=== PATIENT | male | born 1960 | race Caucasian/White ===

== ENCOUNTER 2020-05-09 10:13 | Outpatient (NON) | payer OTHER, SELFPAY ==
[2020-05-09 17:10] LABS: SARS-CoV-2 RNA PCR Positive
== END 2020-05-09 10:14 ==
LOC: ANHCOVIDDT 10:15
PROVIDERS: PCP Physician Assistant; Visit Provider Physician Assistant
DX: U07.1 COVID-19 (principal)
CPT/HCPCS: 87635; C9803; U0003

== ENCOUNTER 2020-07-02 07:47 | Outpatient (CLI) | payer BC, SELFPAY ==
[2020-07-02 08:26] LABS: Hemoglobin A1C 5.2 % (<5.7)
[2020-07-02 08:28] LABS: Basophils Absolute Auto 0.1 K/mm3 (0.0-0.1); Basophils Percent Auto 1.3 % (0.2-1.2); Eosinophils Absolute Auto 0.2 K/mm3 (0-0.3); Eosinophils Percent Auto 3.9 % (0-4.4); Hematocrit 43.2 % (42.0-52.0); Hemoglobin 14.4 g/dL (14.0-18.0); Immature Granulocyte Absolute 0.02 K/mm3 (0.00-0.031); Immature Granulocyte Percent A 0.3 % (0-0.5); Lymphocytes Absolute Auto 1.61 K/mm3 (0.9-3.2); Lymphocytes Percent Auto 27.2 % (18.3-44.2); Mean Corpuscular HGB Conc 33.3 g/dl (32-36); Mean Corpuscular Hemoglobin 29.5 pg (26-34); Mean Corpuscular Volume 88.5 fl (80-100); Mean Platelet Volume 10.6 fl (7.4-10.4); Monocytes Absolute Auto 0.4 K/mm3 (0.1-0.6); Monocytes Percent Auto 7.1 % (2.6-8.5); Neutrophils Absolute Auto 3.6 K/mm3 (1.3-6.7); Neutrophils Percent Auto 60.2 % (45.5-73.1); Platelet Count Result 197 k/mm3 (150-375); Red Blood Count 4.88 M/mm3 (4.6-6.20); Red Cell Distribution Width 12.8 % (11.5-14.5); White Blood Count 5.9 K/mm3 (4.5-10.0)
[2020-07-02 08:30] LABS: Alanine Aminotransferase 24 U/L (4-50); Albumin Level 4.1 g/dL (3.5-5.1); Alkaline Phosphatase 59 U/L (38-126); Anion Gap 5 mmol/L (8-16); Aspartate Amino Transferase 24 U/L (17-59); Bilirubin,Total 0.5 mg/dL (0.2-1.3); Blood Urea Nitrogen 17 mg/dL (9-20); Carbon Dioxide 29 mmol/L (22-30); Chloride 106 mmol/L (98-107); Cholesterol 193 mg/dL (0-200); Estimated Glomerular Filt Rate > 60; Glucose 116 mg/dL (75-110); HDL Direct 29 mg/dL; Potassium 4.2 mmol/L (3.4-5.0); Sodium 140 mmol/L (137-145); Triglycerides 188 mg/dL (<150)
[2020-07-02 08:41] LABS: LDL Cholesterol Direct 121 mg/dL
[2020-07-04 10:36] LABS: Prostate Specific Antigen 0.4 ng/mL (< OR = 4.0)
== END 2020-07-02 07:48 | disposition home or self-care (01) ==
PROVIDERS: PCP Internal Medicine; Visit Provider Clinical Nurse Specialist
DX: E11.9 Type 2 diabetes mellitus without complications (principal); Z12.5 Encounter for screening for malignant neoplasm of prostate
CPT/HCPCS: 36415; 80053; 80061; 83036; 84153; 85025; G0103

== ENCOUNTER 2020-10-04 10:16 | Outpatient (CLI) | payer BC, SELFPAY ==
[2020-10-04 13:30] LABS: Hemoglobin A1C 5.8 % (<5.7)
== END 2020-10-04 10:17 | disposition home or self-care (01) ==
LOC: ANHLAB 10:31
PROVIDERS: PCP Internal Medicine; Visit Provider Clinical Nurse Specialist
DX: E11.9 Type 2 diabetes mellitus without complications (principal)
CPT/HCPCS: 36415; 83036

== ENCOUNTER 2020-12-27 10:10 | Outpatient (CLI) | payer BC, SELFPAY ==
[2020-12-27 15:52] LABS: Hemoglobin A1C 5.9 % (<5.7)
== END 2020-12-27 10:11 | disposition home or self-care (01) ==
PROVIDERS: PCP Internal Medicine; Visit Provider Clinical Nurse Specialist
DX: E11.9 Type 2 diabetes mellitus without complications (principal)
CPT/HCPCS: 36415; 83036

== ENCOUNTER → 2021-01-12 07:14 | Outpatient (CLI) | payer BC, SELFPAY ==
--- NOTE | ~2021-01-12 | MR_ITS ---
EXAMINATION: MR shoulder RT wo con DATE: 01/12/2021 08:17 INDICATION: Right shoulder pain TECHNIQUE: Magnetic resonance imaging (MRI) of the right shoulder was performed without intravenous c ontrast. Sequences included axial PD-weighted FS FSE, coronal oblique PD-weighted FS FSE, coronal obl ique T2-weighted FS FSE, sagittal PD-weighted FS FSE, and sagittal T1-weighted SE. COMPARISON: None. FINDINGS: Coracoacromial arch: Postoperative change of prior acromioplasty with multiple foci of postoperative susceptibility artifa ct along the margins of the thinned acromion. Widening of the acromioclavicular articulation with shweta nge of prior distal clavicle resection. Rotator cuff: Moderate supraspinatus and mild infraspinatus tendinopathy. Very small thin linear fluid signal inten sity intrasubstance longitudinal split tear extending along the otherwise intact appearing fibers of the distal 1 cm of the conjoined portion of the supraspinatus and infraspinatus tendons with no discr ete discontinuous tear margin or thinning of the tendon. The teres minor tendon is normal. Mild subsc apularis tendinopathy without discrete tear. Normal rotator cuff muscle bulk and signal. Biceps tendon, glenoid labrum and glenohumeral cartilage: Long head of the biceps tendon is normal. Glenoid labrum is normal. Glenohumeral cartilage is normal. Fluid: Small amount of fluid in the long head biceps tendon sheath which is disproportionate to the physiolo gic amount fluid in the glenohumeral joint space consistent with mild bicipital tenosynovitis. No loo se osteochondral bodies. Small amount of fluid in the subacromial/subdeltoid bursa consistent with mi ld bursitis. Bones: Normal marrow signal with no edema, fracture or abnormal marrow replacing process. IMPRESSION: 1. Moderate supraspinatus and mild infraspinatus and subscapularis tendinopathy with very small intra substance delaminating split tear at the distal conjoined portion of the supraspinatus and infraspina tus tendons. 2. Postoperative change of prior acromioplasty and distal clavicle resection. 3. Mild subacromial/subdeltoid bursitis. 4. Mild bicipital tenosynovitis. Reviewed, dictated and finalized at location A. IMPRESSION: 1. Moderate supraspinatus and mild infraspinatus and subscapularis tendinopathy with very small intrasubstance delaminating split tear at the distal conjoined portion of the supraspinatus and infraspinatus tendons. 2. Postoperative change of prior acromioplasty and distal clavicle resection. 3. Mild subacromial/subdeltoid bursitis. 4. Mild bicipital tenosynovitis.
== END ==
PROVIDERS: PCP Internal Medicine; Visit Provider Clinical Nurse Specialist
DX: M25.511 Pain in right shoulder (principal); S46.811A Strain of other muscles, fascia and tendons at shoulder and upper arm level, right arm, initial encounter; M75.51 Bursitis of right shoulder; M75.21 Bicipital tendinitis, right shoulder
CPT/HCPCS: 73221

== ENCOUNTER 2021-03-02 09:58 | Outpatient (CLI) | payer BC, SELFPAY ==
[2021-03-02 10:39] LABS: Anion Gap 8 mmol/L (8-16); Blood Urea Nitrogen 16 mg/dL (9-20); Calcium 8.9 mg/dL (8.4-10.2); Carbon Dioxide 27 mmol/L (22-30); Chloride 105 mmol/L (98-107); Estimated Glomerular Filt Rate > 60; Glucose 178 mg/dL (65-110); Sodium 140 mmol/L (137-145)
== END 2021-03-02 09:59 | disposition home or self-care (01) ==
LOC: ANHLAB 10:01
PROVIDERS: PCP Internal Medicine; Visit Provider Clinical Nurse Specialist
DX: I10 Essential (primary) hypertension (principal)
CPT/HCPCS: 36415; 80048

== ENCOUNTER 2021-07-02 17:15 | Observation (INO) | payer BC, SELFPAY ==
[2021-07-02] VITALS (7 sets, daily range): BP systolic 145–185; BP diastolic 76–93; PULSE 78–90; RESP 14–20; TEMP 35.9–36.4; O2SAT 96–100; BMI 37.1
--- NOTE | ~2021-07-02 | XR_ITS ---
EXAMINATION: XR chest 2V DATE: 07/02/2021 18:08 INDICATION: Left chest and abdominal pain. TECHNIQUE: PA and lateral views of the chest were obtained. COMPARISON: Chest radiograph dated 04/03/2018 FINDINGS: Small calcified nodule right lower lung zone and calcified mediastinal lymph nodes consistent with ol d granulomatous disease. Minimal linear discoid atelectasis/scarring at the lateral left lower lung z one. No other airspace opacities, pulmonary edema, pleural effusion or pneumothorax. The cardiomedias tinal silhouette is normal. There are bridging osteophytes at multiple levels in the spine, consisten t with diffuse idiopathic skeletal hyperostosis (DISH). IMPRESSION: 1. No acute cardiopulmonary disease. Reviewed, dictated and finalized at location A. RPLANT OPERATOR
--- NOTE | 2021-07-02 17:17 | ECG_ITS ---
Measurements Intervals [place] Rate: 79 P: 1 WA: 123 QRS: 84 QRSD: 109 T: 88 QT: 363 QTc: 418 Interpretive Statements SINUS RHYTHM SUBTLE ST ELEVATION IN INFERIOR LEADS- CONSIDER ACUTE INFARCT WITH HIGH LATERAL RECIPROCAL CHANGES BASELINE ARTIFACT- I, III, AVL ABNORMAL ECG Electronically Signed On 07-04-2021 10:13:01 ASSEMBLER TESTER by Radu Alvarez D.O.
[2021-07-02 17:37] LABS: Basophils Absolute Auto 0.1 K/mm3 (0.0-0.1); Basophils Percent Auto 1.3 % (0.2-1.2); Eosinophils Absolute Auto 0.2 K/mm3 (0-0.3); Eosinophils Percent Auto 3.1 % (0-4.4); Hematocrit 42.1 % (42.0-52.0); Hemoglobin 14.7 g/dL (14.0-18.0); Immature Granulocyte Absolute 0.03 K/mm3 (0.00-0.031); Immature Granulocyte Percent A 0.4 % (0-0.5); Lymphocytes Absolute Auto 2.32 K/mm3 (0.9-3.2); Lymphocytes Percent Auto 29.7 % (18.3-44.2); Mean Corpuscular HGB Conc 34.9 g/dl (32-36); Mean Corpuscular Hemoglobin 30.6 pg (26-34); Mean Corpuscular Volume 87.7 fl (80-100); Mean Platelet Volume 10.3 fl (7.4-10.4); Monocytes Absolute Auto 0.5 K/mm3 (0.1-0.6); Monocytes Percent Auto 6.9 % (2.6-8.5); Neutrophils Absolute Auto 4.6 K/mm3 (1.3-6.7); Neutrophils Percent Auto 58.6 % (45.5-73.1); Platelet Count Result 234 k/mm3 (150-375); Red Cell Distribution Width 12.3 % (11.5-14.5); White Blood Count 7.8 K/mm3 (4.5-10.0)
[2021-07-02 17:45] LABS: Partial Thromboplastin Time 28.2 SECONDS (22.3-36.8); Prothrombin Time 12.8 Seconds (11.1-14.7)
[2021-07-02 17:51] LABS: Alanine Aminotransferase 28 U/L (4-50); Albumin Level 4.6 g/dL (3.5-5.1); Alkaline Phosphatase 99 U/L (38-126); Anion Gap 8 mmol/L (8-16); Aspartate Amino Transferase 26 U/L (17-59); Bilirubin,Total 0.5 mg/dL (0.2-1.3); Blood Urea Nitrogen 24 mg/dL (9-20); Calcium 9.3 mg/dL (8.4-10.2); Carbon Dioxide 29 mmol/L (22-30); Chloride 102 mmol/L (98-107); Estimated CRCL calculation 83 ml/min; Estimated Glomerular Filt Rate > 60; Glucose 140 mg/dL (65-110); Lipase 102 U/L (23-300); Potassium 4.4 mmol/L (3.4-5.0); Sodium 139 mmol/L (137-145)
[2021-07-02 18:11] LABS: Troponin I 0.071 ng/mL (0.000-0.034)
[2021-07-02] MEDS: ASPIRIN 81 MG CHEWABLE TABLET 324 MG PO (18:38)
--- NOTE | 2021-07-02 18:40 | ECG_ITS ---
Measurements Intervals [place] Rate: 76 P: 47 CA: 150 QRS: 85 QRSD: 105 T: 80 QT: 363 QTc: 410 Interpretive Statements SINUS RHYTHM BORDERLINE ST-T WAVE ABNORMALITY- HIGH LATERAL LEADS BORDERLINE ECG Electronically Signed On 07-02-2021 20:08:53 SAND CUTTER OPERATOR by Radu Alvarez D.O.
[2021-07-02] MEDS: NITROGLYCERIN SL 0.4 MG TABLET SUBLINGUAL (18:55)
--- NOTE | 2021-07-02 18:55 | PC.NURSE ---
patient receives 1/3 SL nitro for 7/10 CP. BP 138/80
--- NOTE | 2021-07-02 19:00 | PM.IMHP ---
H&P: HPI History of Present Illness Date/Time: 07/02/21 19:00 Chief Complaint: Neck and chest pain. Narrative: This is a pleasant 61-year-old male with hypertension, hyperlipidemia, diabetes, and GERD who presented to the emergency department for evaluation of neck and chest pain which has been intermittent over the past 2 days. He describes a burning and perhaps even a slight squeezing sensation which gradually develops in the posterior upper neck and radiates down into his throat and to the left anterior chest. He sees no pattern as to when this occurs and he also denies known aggravating or alleviating factors. The discomfort is self-limiting but has lasted upwards of an hour before resolving. He denies associated symptoms such as syncope, near syncope, diaphoresis, nausea, vomiting, and shortness of breath. It is not similar to the symptoms he experiences with GERD though he did remark that the discomfort in the back of the neck and throat felt almost as though he swallowed a whole chip. Initially he attributed his symptoms to stress however his symptoms lasted longer today and he felt it would be best to come in for evaluation. Initial troponin done on arrival was 0.071 and his EKG was read as a sinus rhythm with borderline ST T-wave abnormalities in the high lateral leads and he is being admitted in this setting. He has not had any discomfort since receiving 325 mg aspirin and sublingual nitroglycerin x2. He has no history of cardiac disease and reports having a negative chemical stress test done at [facility] several years ago. Review of Systems Review of Systems: Twelve systems were reviewed. No fever, chills, or sweats. No recent cold or flu symptoms. He denies sick contacts. No abdominal distension or bloating. He denies abdominal pain and epigastric pain. No nausea or vomiting. No diarrhea or constipation. No melena or hematochezia. He denies palpitations and pleuritic pain. No orthopnea, PND, or lower extremity edema. He believes his diabetes is well controlled and in fact he was able to come off of his metformin several months ago. No blurry vision, polydipsia, or polyuria. Except as documented, all other systems were reviewed and are negative. [facility] Past Medical History Medical History (Updated 07/02/21 @ 21:54 by Lorraine Zacarias PA-C) Arthritis Asthma Gastroesophageal reflux disease Hyperlipidemia Hypertension Skin cancer Type 2 diabetes mellitus Surgical History Surgical History (Updated 07/02/21 @ 21:51 by Lorraine Zacarias PA-C) History of back surgery History of colonoscopy History of repair of right rotator cuff Status post surgical removal of malignant neoplasm of skin Status post tendon repair Right hand Family History Family History Father Alcohol abuse Cancer Mother Diabetes mellitus Sibling Cancer Social History Social History (Updated 07/02/21 @ 21:53 by Lorraine Zacarias PA-C) Social History: Surrogate decision maker: Leatha Roque or Melanie Pb, daughters. Code status: Full code. Smoking status: Never smoker Alcohol intake: current Drinks per week: 4 Substance use: never Additional living arrangements comments: The patient lives in [place]. 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 Meds Home Medications and Allergies Home Medications Medication Instructions Recorded Confirmed Type cyclobenzaprine 10 mg tablet 10 mg PO TID PRN #30 tablet 06/30/20 05/11/21 Rx naproxen 500 mg tablet 500 mg PO BID 06/30/20 05/11/21 History aspirin 81 mg tablet,delayed 81 mg PO DAILY 03/07/21 05/11/21 History release hydrochlorothiazide 12.5 mg tablet 12.5 mg PO DAILY #90 tablet 04/03/21 05/11/21 Rx lisinopril 40 mg tablet 40 mg PO DAILY #90 tablet 04/03/21 05/11/21 Rx montelukast 10 mg tablet 10 mg PO DAILY #90 tablet 04/03/21 05/11/21 Rx omeprazole 40 mg capsule,delayed 40 mg PO DAILY #
--- NOTE | 2021-07-02 19:02 | PC.NURSE ---
Patient receives SL nitro 2/3 for 3 CP. BP 127/81
--- NOTE | 2021-07-02 19:19 | ECG_ITS ---
Measurements Intervals [place] Rate: 81 P: 41 NM: 144 QRS: 83 QRSD: 106 T: 84 QT: 366 QTc: 426 Interpretive Statements SINUS RHYTHM BORDERLINE ST-T WAVE ABNORMALITY- HIGH LATERAL LEADS BASELINE ARTIFACT- I, AVL BORDERLINE ECG Electronically Signed On 07-07-2021 14:40:12 MARKETING INTELLIGENCE MANAGER by Radu Alvarez D.O.
--- NOTE | 2021-07-02 19:19 | ED.CHESTPAIN ---
HPI - Chest Pain General Chief Complaint: Chest Pain Stated Complaint: neck, chest pain Time Seen by Provider: 07/02/21 18:32 Source: patient History of Present Illness HPI narrative: Patient presents with chest pain. He has had intermittent chest pain for the past 2 days today symptoms started around 10:00 and have persisted so he came to the ER for evaluation. Reports a squeezing sensation in the middle of his chest that radiates up to his throat and to the left side of his chest. Is unable to identify any clear aggravating or alleviating factors he denies nausea vomiting diaphoresis or shortness of breath. Does report a history of hypertension elevated cholesterol he denies smoking history or significant family history. Related Data Home Medications Medication Instructions Recorded Confirmed naproxen 500 mg tablet 500 mg PO BID 06/30/20 05/11/21 aspirin 81 mg tablet,delayed 81 mg PO DAILY 03/07/21 05/11/21 release Allergies Allergy/AdvReac Type Severity Reaction Status Date / Time No Known Allergies Allergy Verified 07/02/21 18:58 Review of Systems Review of Systems: CONSTITUTIONAL: Denies fever, chills, or sweats. EYES: Denies visual changes, redness, or discharge. ENT: Denies rhinorrhea, congestion, sore throat, or otalgia. CARDIOVASCULAR: Denies palpitations, or edema. RESPIRATORY: Denies cough or dyspnea. GASTROINTESTINAL: Denies abdominal pain, nausea, vomiting, or diarrhea. GENITOURINARY: Denies dysuria or hematuria. SKIN: Denies rash or itching. MUSCULOSKELETAL: Denies back pain, joint pain, or myalgia. NEUROLOGIC: Denies headache, numbness, dizziness, or weakness. PSYCHIATRIC: Denies anxiety or depression. 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 HEAD: Normocephalic, atraumatic. EYES: PERRLA and EOMI. ENT: Nares clear, no rhinorrhea or epistaxis. Mucous membranes moist. NECK: Supple. No masses. No JVD CHEST: Clear to auscultation. No respiratory distress. No wheezes rales or rhonchi HEART: Regular rate and rhythm. No murmur heard. Normal peripheral pulses. ABDOMEN: Soft, nontender, nondistended, normal active bowel sounds. EXTREMITIES: Normal range of motion. No edema. SKIN: Warm, dry, no rash. NEURO: No focal deficits. Alert and oriented x3. PSYCH: Normal mood and affect. Course Reevaluation(s) Reevaluation #1: Patient feels much improved after 2 doses of nitro Date: 07/02/21 Time: 19:21 Vital Signs Vital signs: Vital Signs Temperature 36.4 C L 07/02/21 17:29 Pulse Rate 85 07/02/21 17:29 Respiratory Rate 20 07/02/21 17:29 Blood Pressure 185/93 H 07/02/21 17:29 Pulse Oximetry 100 07/02/21 17:29 Temperature 36.4 C L 07/02/21 17:29 Pulse Rate 83 07/02/21 18:59 Respiratory Rate 20 07/02/21 18:59 Blood Pressure 149/83 H 07/02/21 18:59 Pulse Oximetry 97 07/02/21 18:59 MDM - Chest Pain MDM Narrative Medical decision making narrative: Patient presents with persistent chest zuleima
[2021-07-02] MEDS: ENOXAPARIN 100 MG/ML SYRINGE SUB-Q (20:11)
[2021-07-02 20:32] LABS: SARS-CoV-2 RNA PCR Negative
[2021-07-02 21:10] LABS: Troponin I 0.794 ng/mL (0.000-0.034)
[2021-07-02] MEDS: METOPROLOL TARTRATE 25 MG TABLET PO (23:07)
[2021-07-03] VITALS (21 sets, daily range): BP systolic 113–138; BP diastolic 58–95; PULSE 53–90; RESP 16–22; TEMP 34.8–36.8; O2SAT 96–99
[2021-07-03] MEDS: NITROGLYCERIN OINTMENT 1 INCH DOSE TRANSDERM ×2 (00:22→06:44)
--- NOTE | 2021-07-03 05:08 | PC.NURSE ---
This patient, Isma Gonsalves, was admitted to IMU Room 206-01. Patient/family oriented to hospital policies and general routines including ID bracelet, bed and alarms, visiting hours, pain management, procedures, bathroom and other care routines, personal items, smoking policy, room service/diet, and visiting hours. Information on how to activate the Rapid Response Team has been discussed. Patient/Family are encouraged to report perceived risks to care and to ask questions if they do not understand what they are told or what they should do.
[2021-07-03 05:15] LABS: Anion Gap 7 mmol/L (8-16); Blood Urea Nitrogen 22 mg/dL (9-20); Calcium 8.8 mg/dL (8.4-10.2); Carbon Dioxide 29 mmol/L (22-30); Chloride 103 mmol/L (98-107); Cholesterol 207 mg/dL (0-200); Estimated CRCL calculation 88 ml/min; Estimated Glomerular Filt Rate > 60; Glucose 125 mg/dL (65-110); HDL Direct 21 mg/dL; Potassium 3.9 mmol/L (3.4-5.0); Sodium 139 mmol/L (137-145); Triglycerides 375 mg/dL (<150)
[2021-07-03 05:18] LABS: Hemoglobin A1C 6.5 % (<5.7)
[2021-07-03 05:26] LABS: LDL Cholesterol Direct 111 mg/dL
[2021-07-03 07:56] LABS: Glucose Point of Care 145 mg/dl (65-105)
--- NOTE | 2021-07-03 09:29 | PM.IMPN ---
Progress Note: A&P Assessment and Plan (1) Chest pain: Code(s): R07.9 - Chest pain, unspecified Status: Acute Assessment and Plan: Patient presented with intermittent chills.. His risk factors for cardiovascular disease include hypertension, dyslipidemia, 2 diabetes. In the setting of elevated troponin this is concerning for possible underlying coronary artery disease. He was appropriately started on the therapeutic dose of Lovenox 1 milligram/kilogram. Currently being evaluated by Cardiology for left sided cardiac catheterization. On admission was appropriately started on aspirin, metoprolol and nitroglycerin. Awaiting additional recommendation from Cardiology after cardiac catheterization is performed. (2) Elevated troponin: Code(s): R77.8 - Other specified abnormalities of plasma proteins Status: Acute Assessment and Plan: troponin is trending up 0.8-2.6-3.2. Follow-up cardiac catheterization report. (3) Hypertension: Code(s): I10 - Essential (primary) hypertension Status: Acute Assessment and Plan: Patient presented with hypertensive urgency now resolved. Blood pressures were reviewed and they have been running the 140s over 80s though was as high as 185/93 on arrival to the ER. His antihypertensives will be continued and blood pressures will be monitored closely. Hold amlodipine today. Start patient on metoprolol succinate. (4) Hyperlipidemia: Code(s): E78.5 - Hyperlipidemia, unspecified Status: Acute Assessment and Plan: Start patient on Lipitor 80 mg p.o. daily. (5) Type 2 diabetes mellitus: Code(s): E11.9 - Type 2 diabetes mellitus without complications Status: Acute Assessment and Plan: He has been off metformin for several months due to good control. Hemoglobin A1c 6.5. Given the patient risk factors and body habitus, it was not be unreasonable to continue metformin at a low dose. Patient was counseled regarding diet and exercise. (6) Gastroesophageal reflux disease: Code(s): K21.9 - Gastro-esophageal reflux disease without esophagitis Status: Acute Assessment and Plan: Patient reports that his symptoms today are not similar to those he experiences with GERD. Continue omeprazole. Subjective Date/time seen: 07/03/21 09:10 S: Patient was seen and examined at the bedside. He denies chest pain or shortness of breath at the time of my examination. Troponin continues to rise. Currently scheduled for angiogram by Cardiology. Review of Systems Review of Systems: All systems reviewed & are unremarkable except as noted in HPI and below Constitutional: Constitutional: Reports as per HPI and Reports no additional constitutional complaints Eyes: Eyes: Reports as per HPI and Reports no additional eye complaints ENT: Reports system reviewed and no additional complaints, except as documented and Reports as per HPI Cardiovascular: Cardiovascular: Reports as per HPI, Reports no additional cardiovascular complaints, Denies chest pain, Denies leg edema and Denies palpitations Respiratory: Respiratory: Reports as per HPI and Reports no additional respiratory complaints Gastrointestinal: Gastrointestinal: Reports as per HPI and Reports no additional gastrointestinal complaints Genitourinary: Genitourinary: Reports no additional male genitourinary complaints and Reports as per HPI Musculoskeletal: Musculoskeletal: Reports no additional musculoskeletal complaints and Reports as per HPI Integumentary/Breasts: Skin/Breast: Reports system reviewed and no additional complaints, except as docu and Reports as per HPI Neurologic: Reports system reviewed and no additional complaints, except as documented and Reports as per HPI Psychiatric: Psychiatric: Reports no additional psychiatric complaints and Reports as per HPI Exam Narrative: General: Well-developed male sitting up in bed in no dist
--- NOTE | 2021-07-03 09:53 | PM.CNCAR ---
Assessment and Plan Additional Plan 61-year-old man presenting last evening with intermittent chest pain for several days troponin shows evidence of acute coronary syndrome. He is stable this morning. Will proceed with left heart catheterization later today and further recommendations regarding revascularization to be forthcoming after that procedure. Nain Barboza MD [facility] History of Present Illness History of Present Illness Consult date/time: 07/03/21 09:53 Consult reason: chest pain Reason For Visit: chest pain Narrative: This is a 61-year-old man I am seeing today at the request of the hospitalist because of chest pain and evidence of acute coronary syndrome following admission to the hospital last evening. The patient states that he is not known to have any specific cardiac diagnosis in the past. For 2 or 3 days prior to this he has been having intermittent episodes of a burning like retrosternal chest pain this seems to come and go in a nonexertional fashion. Yesterday he had some of these episodes that were a bit more intense and were radiating to the neck and into the jaw. At that point he decided to come into the emergency room for evaluation. In the emergency department his electrocardiogram looked essentially benign he was treated with aspirin, beta-blockers and received some Lovenox. He was admitted to the hospital for further evaluation. Following admission he is not having any further chest pain but his troponin level has increased significantly to 3.2. In this setting I am seeing him in consultation. A reports a history of longstanding hypertension and dyslipidemia which are being well treated with medication. He has no knowledge of diabetes or he is a lifelong nonsmoker. 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 He not experiencing any palpitations orthopnea PND edema or accumulating lower extremity edema. Review of Systems Constitutional: Constitutional: Reports no additional constitutional complaints Eyes: Eyes: Reports no additional eye complaints ENT: Reports system reviewed and no additional complaints, except as documented Cardiovascular: Cardiovascular: Reports as per HPI Respiratory: Respiratory: Reports no additional respiratory complaints Gastrointestinal: Gastrointestinal: Reports no additional gastrointestinal complaints Musculoskeletal: Musculoskeletal: Reports no additional musculoskeletal complaints Integumentary/Breasts: Skin/Breast: Reports system reviewed and no additional complaints, except as docu Neurologic: Reports system reviewed and no additional complaints, except as documented Endocrine: Endocrine: Reports no additional endocrine complaints Hematologic/Lymphatic: Hematologic/Lymphatic: Reports no additional hematologic/lymphatic complaints Allergic/Immunologic: Allergic/Immunologic: Reports no additional allergic/immunologic complaints PMFSH Past Medical History Medical History (Updated 07/02/21 @ 21:54 by Lorraine Zacarias PA-C) Arthritis Asthma Gastroesophageal reflux disease Hyperlipidemia Hypertension Skin cancer Type 2 diabetes mellitus Surgical History Surgical History (Updated 07/02/21 @ 21:51 by Lorraine Zacarias PA-C) History of back surgery History of colonoscopy History of repair of right rotator cuff Status post surgical removal of malignant neoplasm of skin Status post tendon repair Right hand Family History Family History (Updated 07/03/21 @ 04:52 by Maggie Reed, SOCO) Father Alcohol abuse Skin cancer Mother Diabetes mellitus Pancreatic cancer Sibling Cancer multiple siblings/half siblings with cancers of unknown type Sibling Malignant neoplasm of prostate Sibling Cancer Sibling Cancer Social History Social History (Updated 07/02/21 @ 21:53 by Lorraine Zacarias PA-C) Social History: Surrogate decision maker: Leatha Roque or Melaniehola Ambriz, daughters. Code status: Full code. Smoking status: Former smo
--- NOTE | 2021-07-03 10:08 | WPDMODSED ---
Moderate Sedation Note-Pt Data Patient Data Diagnosis: non ST-elevation MA Present Complaint: intermittent chest and jaw pain Procedure to be performed/Plan: left heart catheterization Allergies Allergy/AdvReac Type Severity Reaction Status Date / Time No Known Allergies Allergy Verified 07/02/21 22:40 Home Medications Medication Instructions Recorded Confirmed Type aspirin 81 mg tablet,delayed 81 mg PO DAILY 03/07/21 07/02/21 History release hydrochlorothiazide 12.5 mg tablet 12.5 mg PO DAILY #90 tablet 04/03/21 07/02/21 Rx lisinopril 40 mg tablet 40 mg PO DAILY #90 tablet 04/03/21 07/02/21 Rx montelukast 10 mg tablet 10 mg PO DAILY #90 tablet 04/03/21 07/02/21 Rx omeprazole 40 mg capsule,delayed 40 mg PO DAILY #90 cap 04/03/21 07/02/21 Rx release simvastatin 20 mg tablet 20 mg PO DAILY #90 tablet 04/03/21 07/02/21 Rx amlodipine 5 mg PO DAILY 07/02/21 07/02/21 History Current Medications: Active Medications Amlodipine Besylate (Amlodipine Besylate 5 Mg Tablet) 5 mg PO DAILY [facility] Aspirin (Aspirin 81 Mg Enteric Tablet) 81 mg PO DAILY [facility] Hydrochlorothiazide (Hydrochlorothiazide 12.5 Mg Capsule) 12.5 mg PO DAILY [facility] Acetaminophen (Ofirmev 1,000 Mg Ivpb) 1,000 mg in 100 mls @ 400 mls/hr IVPB Q6H PRN PRN Reason: Mild Pain (1-3) or Fever Stop: 07/03/21 19:28 Lisinopril (Lisinopril 20 Mg Tablet) 40 mg PO DAILY [facility] Metoprolol Succinate (Metoprolol Succinate Ext Rel 12.5 Mg Tabcr) 12.5 mg PO QAM [facility] Montelukast Sodium (Montelukast Sodium 10 Mg Tablet) 10 mg PO DAILY [facility] Nitroglycerin (Nitroglycerin Ointment 1 Inch Dose) 1 inch TRANSDERM Q6HR [facility] Last Admin: 07/03/21 06:44 Dose: 1 inch Documented by: Nitroglycerin (Nitroglycerin Sl 0.4 Mg Tablet) 0.4 mg SUBLINGUAL Q5MIN PRN PRN Reason: Chest Pain Pantoprazole Sodium (Pantoprazole 40 Mg Tablet) 40 mg PO DAILY [facility] Stop: 08/02/21 08:59 Simvastatin (Simvastatin 20 Mg Tablet) 20 mg PO DAILY [facility] Sedation/Anesthesia: No previous sedation/anesthesia problems (including family history). [facility] Past Medical History Medical History (Updated 07/02/21 @ 21:54 by Lorraine Zacarias PA-C) Arthritis Asthma Gastroesophageal reflux disease Hyperlipidemia Hypertension Skin cancer Type 2 diabetes mellitus Surgical History Surgical History (Updated 07/02/21 @ 21:51 by Lorraine Zacarias PA-C) History of back surgery History of colonoscopy History of repair of right rotator cuff Status post surgical removal of malignant neoplasm of skin Status post tendon repair Right hand Family History Family History (Updated 07/03/21 @ 04:52 by Maggie Reed RN) Father Alcohol abuse Skin cancer Mother Diabetes mellitus Pancreatic cancer Sibling Cancer multiple siblings/half siblings with cancers of unknown type Sibling Malignant neoplasm of prostate Sibling Cancer Sibling Cancer Social History Social History (Updated 07/02/21 @ 21:53 by Lorraine Zacarias PA-C) Social History: Surrogate decision maker: Leatha Roque or Melanie Ambriz, daughters. Code status: Full code. Smoking status: Former smoker Alcohol intake: current Drinks per week: 4 Substance use: never Last use: 4 beers once per week Additional living arrangements comments: The patient lives in [place]. 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 Spiritual care concerns: No Mod Sed Physical Exam Physical Exam Pre Procedural Exam: Normal: Neck, Throat, Airway, Lungs, Heart Size, Heart Rate, Heart Rhythm, Neuro Exam and Extremities and Variation: Appearance ( obese gentleman no apparent distress) Hours since solid foods: 12 Hours since liquid intake: 12 Mallampati Classification: class III Internal Medicine - PN: Obj Da Vital Signs Vital Signs: Vital Signs - 24 hr 07/02/21 17:29 07/02/21 18:57 07/02/21 18:59 Temperature 36.4 C L Pulse Rate 85 78 83 Respiratory Rate 20 20 Blood Pressure 185/93 H 149/83
[2021-07-03] MEDS: METOPROLOL SUCCINATE EXT REL 12.5 MG TABCR PO (10:51)
[2021-07-03] MEDS: MONTELUKAST SODIUM 10 MG TABLET PO (10:52)
[2021-07-03] MEDS: SIMVASTATIN 20 MG TABLET PO (10:52)
[2021-07-03] MEDS: hydroCHLOROthiazide 12.5 MG CAPSULE PO (10:52)
[2021-07-03] MEDS: lisinopriL 20 MG TABLET 40 MG PO (10:52)
[2021-07-03] MEDS: ASPIRIN 81 MG ENTERIC TABLET PO (10:52)
[2021-07-03] MEDS: PANTOPRAZOLE 40 MG TABLET PO (10:53)
--- NOTE | 2021-07-03 12:07 | WPDCARDPROC ---
Cardiac Cath Procedure Note Date of procedure:: 07/03/21 Performing physician:: Nain Barboza MD Indication:: acute coronary syndrome/ non ST-elevation ME Brief clinical history:: this is a 61-year-old gentleman with hypertension and dyslipidemia presented to the hospital with accelerating / unstable ischemic chest pain several days. He had a moderate troponin rise prompting the recommendation to perform an angiogram. Procedure Procedure performed:: Left ventriculogram coronary angiography Sedation/Medication given:: fentanyl 50 mg Versed 2 mg case start time 11:42 a.m. case end time 11:56 a.m. sedation provided by Smitha Canchola RN, trained observer Access site:: right femoral artery Estimated blood loss:: 20 cc Procedure note:: patient was brought to the cardiac catheterization lab in the postabsorptive state the right femoral triangle was prepared and draped in the normal fashion. Anesthesia was provided with 1% lidocaine infiltrated locally. Using a modified Seldinger technique a 5 Nepali sheath was placed into the femoral artery after which left heart catheterization was carried out. I used a 5 Nepali angled catheter to perform a left ventriculogram in the ER AO projection after this I used a 5 Nepali FL4 catheter to engage inject the left coronary artery in multiple projections then a 5 Nepali JR4 catheter was used to engage and inject the right coronary artery. Procedure was then finished and the cineangiograms were reviewed. He was taken to holding area for manual sheath removal. There were no apparent complications he left the cardiovascular lab director with no evidence of groin hematoma. Findings:: Hemodynamics: m Central aortic pressure was 1 14 over 64 left ventricle 114/0 end-diastolic 16 there was no gradient on pullback across the aortic valve. Left ventricle: The LV is normal in size the infero posterior segment is hypodynamic the remainder contracts well the global ejection fraction is visually estimated to be 50-55%. The left main coronary artery is large in caliber and patent the left anterior descending is a [id number] caliber vessel extending down to around the apex. The LAD has a proximal discrete stenosis of 99%. There is PITER 3 flow in the LAD. There is my mild luminal irregularities in the remainder of the vessel. The large diagonal branch also has a discrete 90-95% Stenosis in its proximal segment. The LAD in the diagonal distally are of good caliber. Circumflex is a large caliber vessel giving rise to the marginal branches. There is mild atherosclerosis about 40% stenosis in the mid trunk of the circumflex. Right coronary artery is very large in caliber and dominant to the posterior circulation. There is a proximal 95-99% stenosis in the right coronary artery with significant ectatic dilatation proximally as well. In the 2nd portion of the RCA there is mild 50-60% stenosis. The RPDA and RPL branches are large caliber. Conclusion:: 1. Right coronary dominant circulation with complex multivessel disease. Culprit lesion for his presentation I believe is the high-grade subtotal stenosis of the large dominant proximal RCA. 2. High-grade stenosis in the proximal LAD as well as in the large diagonal branch. 3. Non flow-limiting disease noted in the circumflex 4. infero posterior hypokinesia global ejection fraction is preserved Nain Barboza MD [facility]
--- NOTE | 2021-07-03 14:11 | PM.DS ---
DS: Admitting Diagnosis Discharge Date 07/03/2020 Admitting Diagnosis (1) Chest pain: (2) Elevated troponin (3) Hypertension: (4) Hyperlipidemia: (5) Type 2 diabetes mellitus: (6) Gastroesophageal reflux disease: non ST-elevation myocardial infarction. DS: Discharge Diagnosis Discharge Diagnosis (1) Chest pain: Code(s): R07.9 - Chest pain, unspecified Status: Acute Assessment and Plan: Patient presented with intermittent chills.. His risk factors for cardiovascular disease include hypertension, dyslipidemia, 2 diabetes. In the setting of elevated troponin this is concerning for possible underlying coronary artery disease. He was appropriately started on the therapeutic dose of Lovenox 1 milligram/kilogram. Currently being evaluated by Cardiology for left sided cardiac catheterization. On admission was appropriately started on aspirin, metoprolol and nitroglycerin. Cardiac catheterization reveals high degree stenosis of distal LAD. A recommendation to transfer the patient to [facility] for CABG. (2) Elevated troponin: Code(s): R77.8 - Other specified abnormalities of plasma proteins Status: Acute Assessment and Plan: troponin is trending up 0.8-2.6-3.2. Follow-up cardiac catheterization report. (3) Hypertension: Code(s): I10 - Essential (primary) hypertension Status: Acute Assessment and Plan: Patient presented with hypertensive urgency now resolved. Blood pressures were reviewed and they have been running the 140s over 80s though was as high as 185/93 on arrival to the ER. His antihypertensives will be continued and blood pressures will be monitored closely. Hold amlodipine today. Start patient on metoprolol succinate. (4) Hyperlipidemia: Code(s): E78.5 - Hyperlipidemia, unspecified Status: Acute Assessment and Plan: Start patient on Lipitor 80 mg p.o. daily. (5) Type 2 diabetes mellitus: Code(s): E11.9 - Type 2 diabetes mellitus without complications Status: Acute Assessment and Plan: He has been off metformin for several months due to good control. Hemoglobin A1c 6.5. Given the patient risk factors and body habitus, it was not be unreasonable to continue metformin at a low dose. Patient was counseled regarding diet and exercise. (6) Gastroesophageal reflux disease: Code(s): K21.9 - Gastro-esophageal reflux disease without esophagitis Status: Acute Assessment and Plan: Patient reports that his symptoms today are not similar to those he experiences with GERD. Continue omeprazole. DS: Summary Hospital Course Reason for hospitalization: Chest pain Hospital Course: Please refer to admission H& P. Briefly, this is a 61-year-old gentleman with hypertension, diabetes and dyslipidemia admitted for intermittent chest pain highly suspicious for NSTEMI.1. Cardiac catheterization reveals Right coronary dominant circulation with complex multivessel disease. Culprit lesion for his presentation I believe is the high-grade subtotal stenosis of the large dominant proximal RCA. 2. High-grade stenosis in the proximal LAD as well as in the large diagonal branch. 3. Non flow-limiting disease noted in the circumflex. 4. infero posterior hypokinesia global ejection fraction is preserved. Patient is referred to [facility] for CABG. Status at Discharge Cognitive/behavioral status at discharge: at baseline Functional status at discharge: independent ambulation Overall status at discharge: patient is back to baseline Time Spent with Patient Time attestation: Total time spent providing and/or coordinating discharge services:32 min Time spent: Greater than 30 minutes Exam Narrative: General: Well-developed male sitting up in bed in no distress. Weight: 136.53 kg. BMI: 30.6. HEENT: PERRL, EOMI. Sclerae anicteric. Oral mucosa moist. Oropharynx clear. Neck: Supple. No JVD or bruits.
--- NOTE | 2021-07-03 15:11 | PC.NURSE ---
1415-pt back from microbiology laboratory manager. pt stable and Rt groin is soft with drsg CDI. 1450-report called to SOCO Alvarez at [facility] PCU. Questions answered. pt's daughter at bedside.
[2021-07-03 15:37] LABS: Glucose Point of Care 131 mg/dl (65-105)
--- NOTE | 2021-07-09 20:00 | PM.TDS ---
Transfer Discharge Sum: Prov Provider Date of admission: 07/02/21 19:29 Primary care physician: Taz Cox DO Admitting clinician: Jose F Guerrero MD Consults: 07/02/21 19:31 Consult to Physician Routine Comment: Consulting Provider: Cricket Gonsalez Reason for consultation: elevated troponin Has provider been notified: Yes DS: Admitting Diagnosis Discharge Date 07/03/21 Admitting Diagnosis (1) Chest pain: (2) Elevated troponin (3) Hypertension: (4) Hyperlipidemia: (5) Type 2 diabetes mellitus: (6) Gastroesophageal reflux disease: (7)non ST-elevation myocardial infarction. DS: Discharge Diagnosis Discharge Diagnosis (1) Chest pain: Code(s): R07.9 - Chest pain, unspecified Status: Acute Assessment and Plan: Patient presented with intermittent chills.. His risk factors for cardiovascular disease include hypertension, dyslipidemia, 2 diabetes. In the setting of elevated troponin this is concerning for possible underlying coronary artery disease. He was appropriately started on the therapeutic dose of Lovenox 1 milligram/kilogram. Currently being evaluated by Cardiology for left sided cardiac catheterization. On admission was appropriately started on aspirin, metoprolol and nitroglycerin. Cardiac catheterization reveals high degree stenosis of distal LAD. A recommendation to transfer the patient to [facility] for CABG. (2) Elevated troponin: Code(s): R77.8 - Other specified abnormalities of plasma proteins Status: Acute Assessment and Plan: troponin is trending up 0.8-2.6-3.2. Follow-up cardiac catheterization report. (3) Hypertension: Code(s): I10 - Essential (primary) hypertension Status: Acute Assessment and Plan: Patient presented with hypertensive urgency now resolved. Blood pressures were reviewed and they have been running the 140s over 80s though was as high as 185/93 on arrival to the ER. His antihypertensives will be continued and blood pressures will be monitored closely. Hold amlodipine today. Start patient on metoprolol succinate. (4) Hyperlipidemia: Code(s): E78.5 - Hyperlipidemia, unspecified Status: Acute Assessment and Plan: Start patient on Lipitor 80 mg p.o. daily. (5) Type 2 diabetes mellitus: Code(s): E11.9 - Type 2 diabetes mellitus without complications Status: Acute Assessment and Plan: He has been off metformin for several months due to good control. Hemoglobin A1c 6.5. Given the patient risk factors and body habitus, it was not be unreasonable to continue metformin at a low dose. Patient was counseled regarding diet and exercise. (6) Gastroesophageal reflux disease: Code(s): K21.9 - Gastro-esophageal reflux disease without esophagitis Status: Acute Assessment and Plan: Patient reports that his symptoms today are not similar to those he experiences with GERD. Continue omeprazole. Transfer Discharge Sum: Med Medications Active and Home Medications: Home Medications aspirin 81 mg tablet,delayed release 81 mg PO DAILY 03/07/21 [History Confirmed 07/02/21] hydrochlorothiazide 12.5 mg tablet 12.5 mg PO DAILY #90 tablet 04/03/21 [Rx Confirmed 07/02/21] lisinopril 40 mg tablet 40 mg PO DAILY #90 tablet 04/03/21 [Rx Confirmed 07/02/21] montelukast 10 mg tablet 10 mg PO DAILY #90 tablet 04/03/21 [Rx Confirmed 07/02/21] omeprazole 40 mg capsule,delayed release 40 mg PO DAILY #90 cap 04/03/21 [Rx Confirmed 07/02/21] simvastatin 20 mg tablet 20 mg PO DAILY #90 tablet 04/03/21 [Rx Confirmed 07/02/21] amlodipine 5 mg PO DAILY 07/02/21 [History Confirmed 07/02/21] Transfer Discharge Sum: Hosp Hospital Course Hospital course: Reason for hospitalization: Chest pain Hospital Course: Please refer to admission H& P. Briefly, this is a 61-year-old gentleman with hypertension, diabetes and dyslipidemia admitted for intermittent c
== END 2021-07-03 15:53 | disposition short-term general hospital (02) ==
LOC: ANHED 20:00 → ANHIMU 07-03 01:03
PROVIDERS: Physician Assistant; Specialist; Admitting Provider Internal Medicine; Emergency Provider Emergency Medicine; PCP Internal Medicine; Visit Provider Internal Medicine
PROC: 4A023N7 Measurement of Cardiac Sampling and Pressure, Left Heart, Percutaneous Approach (ICD-10-PCS; CPT 93452; principal; 2021-07-03 11:30)
DX: R07.9 Chest pain, unspecified (principal); I25.10 Atherosclerotic heart disease of native coronary artery without angina pectoris; R77.8 Other specified abnormalities of plasma proteins; I10 Essential (primary) hypertension; E78.5 Hyperlipidemia, unspecified; E11.9 Type 2 diabetes mellitus without complications; K21.9 Gastro-esophageal reflux disease without esophagitis; Z85.828 Personal history of other malignant neoplasm of skin; Z79.82 Long term (current) use of aspirin; Z20.822 Contact with and (suspected) exposure to COVID-19
CPT/HCPCS: 36415; 71046; 80048; 80053; 80061; 82948; 83036; 83690; 83735; 84484; 85025; 85610; 85730; 93005; 93458; 96372; 99285; A9270; C1887; C1894; C9803; G0378; J1644; J1650; J2250; J3010; J7040; U0003; U0005

== ENCOUNTER 2021-09-25 11:00 | Outpatient (CLI) | payer BC, SELFPAY ==
[2021-09-25 11:55] LABS: Cholesterol 151 mg/dL (0-200); HDL Direct 23 mg/dL; Triglycerides 254 mg/dL (<150)
[2021-09-25 12:06] LABS: LDL Cholesterol Direct 79 mg/dL
[2021-09-25 12:07] LABS: Hemoglobin A1C 5.4 % (<5.7)
== END 2021-09-25 11:01 | disposition home or self-care (01) ==
LOC: ANHLAB 11:01
PROVIDERS: PCP Internal Medicine; Visit Provider Internal Medicine
DX: E11.9 Type 2 diabetes mellitus without complications (principal)
CPT/HCPCS: 36415; 80061; 83036

== ENCOUNTER 2021-09-27 11:38 | Outpatient (CLI) | payer BC, SELFPAY ==
--- NOTE | ~2021-09-27 | XR_ITS ---
XR knee LT 2V 09/27/2021 12:10 Indication: Left knee pain Procedure: 2 views left knee Comparison: No prior studies for comparison. Findings: Mild patellofemoral compartment osteoarthritis. No fracture, subluxation or dislocation. Th ere is anatomic alignment. No joint effusion. Surgical clips are present medial to the knee. Impression: 1: Mild patellofemoral compartment osteoarthritis. Reviewed, dictated and finalized at location A. Impression: 1: Mild patellofemoral compartment osteoarthritis.
== END 2021-09-27 11:39 | disposition home or self-care (01) ==
PROVIDERS: PCP Internal Medicine; Visit Provider Nurse Practitioner
DX: M17.12 Unilateral primary osteoarthritis, left knee (principal)
CPT/HCPCS: 73560

== ENCOUNTER 2021-10-16 09:05 | Outpatient (RCR) | payer BC, SELFPAY ==
--- NOTE | 2021-10-16 09:54 | PTOPEVAL ---
Thank you for referring Isma Gonsalves to [facility].? The patient is scheduled to be seen for therapy? ____x/week for ___ weeks. Please review, sign, date and return this plan of care GABO. I agree with and certify that the following plan of care is medically necessary. Referring Physician Date Admitting Provider: Attending Provider: Jermaine Bowman MD Referring Provider: *PT Outpatient Evaluation Start: 10/16/21 09:11 Freq: Status: Active Protocol: Document 10/16/21 09:10 Sameer (Rec: 10/16/21 09:53 [facility] [id number]) Therapy Assessment Status Assessment Status Assessment Status Evaluation Outpatient Past Medical History Cardiovascular History Hx Hypercholesterolemia Yes Hx Hypertension Yes Respiratory History Hx Asthma Yes Gastrointestinal History Hx Gastroesophageal Reflux Disease Yes Musculoskeletal History Hx Orthopedic Surgery Yes: R rotator cuff Hx Spinal Surgery Yes: lower back Hx Other Musculoskeletal Disorders Yes: Cut tendon R hand Hematological History Hx Hematological Disorders No Significant History Endocrine History Hx Diabetes Yes: taken off medicatios 12/31 Integumentary History Hx Excision Skin Lesion Yes: 1 on head, 3 on back, L ear Psychosocial History Hx Psychiatric Disorders No Significant History Anesthesia History Hx Anesthesia Reactions No Significant History Other History Hx Cancer Yes: Skin cancer Hx Other Surgeries Yes Evaluation Information Problem Diagnosis L knee pain Onset 10/12/21 Additional Evaluation Detail LEFS = Subjective Information patient reports he has been Query Text:As Reported By Patient/ having pain in the L knee for Family aobut 4 months. he reports sitting down to standing up causes pain behind the knee. he reports it takes a few minutes of walking around for it to feel better. he reports the pain comes back any time he sits. he reports he has had an injection last week. he reports it has felt better since the injection. he reports he is on prednisone as well orally. he reports his ortho thinks it is arthritis. he reports he is currently getting cardiac rehab for post op double bipass recovery. Prior Level of
--- NOTE | 2021-11-10 07:48 | PTOPEVAL ---
Thank you for referring Isma Gonsalves to [facility].? The patient is scheduled to be seen for therapy? ____x/week for ___ weeks. Please review, sign, date and return this plan of care GABO. I agree with and certify that the following plan of care is medically necessary. Referring Physician Date Admitting Provider: Attending Provider: Jermaine Bowman MD Referring Provider: *PT Outpatient Evaluation Start: 10/16/21 09:11 Freq: Status: Active Protocol: Document 11/03/21 09:00 Sameer (Rec: 11/03/21 09:50 [facility] [id number]) Therapy Assessment Status Assessment Status Assessment Status Discharge Outpatient Past Medical History Cardiovascular History Hx Hypercholesterolemia Yes Hx Hypertension Yes Respiratory History Hx Asthma Yes Gastrointestinal History Hx Gastroesophageal Reflux Disease Yes Musculoskeletal History Hx Orthopedic Surgery Yes: R rotator cuff Hx Spinal Surgery Yes: lower back Hx Other Musculoskeletal Disorders Yes: Cut tendon R hand Hematological History Hx Hematological Disorders No Significant History Endocrine History Hx Diabetes Yes: taken off medicatios 12/31 Integumentary History Hx Excision Skin Lesion Yes: 1 on head, 3 on back, L ear Psychosocial History Hx Psychiatric Disorders No Significant History Anesthesia History Hx Anesthesia Reactions No Significant History Other History Hx Cancer Yes: Skin cancer Hx Other Surgeries Yes Evaluation Information Problem Diagnosis L knee pain Onset 10/12/21 Additional Evaluation Detail LEFS = 0% Functionally Declined Subjective Information Pt reports that he is happy Query Text:As Reported By Patient/ with the progress he has made Family with therapy. He no longer has pain and is capable of performing all tasks he is needing to without difficulty. He says that he used to have high levels of pain when going from sitting to standing, but no longer has this pain. Pain Assessment Timing of Pain Assessment Timing of Pain Assessment Pre-Treatment Self Report Self Report Pain Level 0 Pain Score Pain Score 0: Self Report Lower Extremity Range of Motion Knee Range of Motion Right Knee Flexion Range of Motion - Active 135 Knee Extension Range of Motion - Active 5 Query Text: Left Knee Flexion Range of Motion - Active 130 Knee Extension Range of Motion - Active 4 Query Text:
== END 2021-11-03 09:49 | disposition home or self-care (01) ==
LOC: CHSPT 09:05
PROVIDERS: PCP Internal Medicine; Visit Provider Orthopaedic Surgery
DX: M25.562 Pain in left knee (principal)
CPT/HCPCS: 97110; 97112; 97161

== ENCOUNTER 2021-11-10 08:00 | Outpatient (RCR) | payer BC, SELFPAY | END 2021-11-15 12:50 | disposition home or self-care (01) | PROVIDERS: PCP Internal Medicine; Visit Provider Specialist | DX: Z95.1 Presence of aortocoronary bypass graft (principal); I21.09 ST elevation (STEMI) myocardial infarction involving other coronary artery of anterior wall | CPT/HCPCS: 93798 ==

== ENCOUNTER 2021-11-15 12:23 | Outpatient (CLI) | payer BC, SELFPAY ==
--- NOTE | ~2021-11-15 | XR_ITS ---
XR chest 2V DATE: 11/15/2021 12:36 INDICATION: Left lower chest pain TECHNIQUE: PA and lateral views COMPARISON: July 02, 2021 PA and lateral chest FINDINGS: Status post sternotomy. Normal heart size. No pulmonary infiltrate or consolidation, pleura l effusion or pulmonary vascular or pneumothorax. Is evidence of old pulmonary granulomatous disease. Normal heart size. Degenerative spurring of the thoracic spine. IMPRESSION: No active cardiac pulmonary disease Reviewed, dictated and finalized at location A.
== END 2021-11-15 12:24 | disposition home or self-care (01) ==
LOC: ANHIMG 12:27
PROVIDERS: PCP Internal Medicine; Visit Provider Clinical Nurse Specialist
DX: R07.89 Other chest pain (principal)
CPT/HCPCS: 71046

== ENCOUNTER 2021-11-23 07:47 | Outpatient (CLI) | payer BC, SELFPAY ==
--- NOTE | 2021-12-04 21:02 | WPDHOMESLEEP ---
Sleep Study - Home Unattended Date of Study: 11/23/21 Ordering Provider: Debra Villagomez NP Interpreting Provider: Angeline Jones, DO Home Sleep Study Type: Watch PAT Height: 1.88 m Weight: 125.645 kg Body Mass Index: 35.5 Neck Circumference (inches): 17.5 [place]: 15 Reason for Sleep Study Daytime hypersomnia and snoring Sleep History The patient is a 61-year-old male with hypertension, coronary artery disease with history of triple bypass, GERD, asthma, hyperlipidemia, diabetes, and history of tobacco use that had a sleep study ordered by his primary care for evaluation of his sleep apnea. the patient occasionally awakens from sleep short of breath. He frequently awakens at night with heartburn, belching or cough. He constantly snores loud enough that others complain. He occasionally has trouble sleeping when he has a cold. He occasionally wakes up gasping for air throughout the night. He occasionally has breathing problems at night observed by others. He frequently sweats excessively at night. He occasionally has heart palpitations or irregular heartbeats during the night. He occasionally falls asleep during the day but never while driving. He denies sleep paralysis and cataplexy. He rarely has trouble at school or work due to sleepiness. He occasionally experiences vivid dreamlike scenes upon awakening or falling asleep. He occasionally has nightmares and frequently remembers his dreams. He constantly has thoughts racing through his mind. He rarely feels sad or depressed. He occasionally has anxiety. He occasionally has muscular tension. He rarely notices parts of his body jerk. He occasionally kicks during the night. He occasionally has crawling and aching feelings in his legs as well as leg pain during the night. He denies grinding his teeth during sleep but will rarely awaken with morning jaw pain. He is occasionally bothered by pain during the day but rarely awakened by pain during the night. He occasionally wakes up feeling stiff in the morning. He occasionally wakes up with sore achy muscles. He occasionally wakes up with pain in the neck, spine or other joints. He goes to bed between 8-9 p.m. on both weekdays and weekends. He can take him up to 30 minutes to fall asleep. He wakes up 2-3 times throughout the night to urinate. He is unsure how long it takes him to fall back asleep. He wakes up at 7:00 a.m. on both weekdays and weekends. He typically gets 4-5 hours of sleep per night. He will stay in bed for 5-10 minutes after waking up in the morning. He currently lives with his . He does not consume any caffeinated beverages within 2 hours of bedtime. He does not engage in physical exercise before bedtime. He will watch television before falling asleep. He will take naps in the afternoon or the evening and they are refreshing. He drinks 1-2 caffeinated beverages per day. He will drink an alcoholic beverage occasionally. He quit smoking cigarettes 23 years ago. He denies recreational drug use. [facility] Past Medical History Medical History Arthritis Asthma Gastroesophageal reflux disease Hyperlipidemia Hypertension Skin cancer Type 2 diabetes mellitus Surgical History Surgical History History of back surgery History of colonoscopy History of repair of right rotator cuff Status post double vessel coronary artery bypass July 2021 Status post surgical removal of malignant neoplasm of skin Status post tendon repair Right hand Family History Family History Father Alcohol abuse Skin cancer Mother Diabetes mellitus Pancreatic cancer Sibling Cancer multiple siblings/half siblings with cancers of unknown type Sibling Malignant neoplasm of prostate Sibling Cancer Sibling Cancer Social History Soc
[2021-12-04 21:07] VITALS: BMI 35.5
--- NOTE | 2022-05-09 08:39 | SLEEP ---
[facility] has not set up pt
== END 2021-11-24 10:44 | disposition home or self-care (01) ==
LOC: ANHCSM 07:55
PROVIDERS: PCP Internal Medicine; Visit Provider Nurse Practitioner
DX: G47.33 Obstructive sleep apnea (adult) (pediatric) (principal)
CPT/HCPCS: 95800

== ENCOUNTER 2021-12-07 08:15 | Outpatient (CLI) | payer BC, SELFPAY ==
[2021-12-07 09:05] LABS: Basophils Absolute Auto 0.1 K/mm3 (0.0-0.1); Eosinophils Absolute Auto 0.2 K/mm3 (0-0.3); Eosinophils Percent Auto 3.3 % (0-4.4); Hematocrit 40.9 % (42.0-52.0); Hemoglobin 13.7 g/dL (14.0-18.0); Immature Granulocyte Absolute 0.01 K/mm3 (0.00-0.031); Immature Granulocyte Percent A 0.2 % (0-0.5); Lymphocytes Absolute Auto 1.35 K/mm3 (0.9-3.2); Lymphocytes Percent Auto 25.9 % (18.3-44.2); Mean Corpuscular HGB Conc 33.5 g/dl (32-36); Mean Corpuscular Hemoglobin 29.3 pg (26-34); Mean Corpuscular Volume 87.6 fl (80-100); Mean Platelet Volume 10.4 fl (7.4-10.4); Monocytes Absolute Auto 0.3 K/mm3 (0.1-0.6); Monocytes Percent Auto 5.7 % (2.6-8.5); Neutrophils Absolute Auto 3.3 K/mm3 (1.3-6.7); Neutrophils Percent Auto 63.9 % (45.5-73.1); Platelet Count Result 183 k/mm3 (150-375); Red Blood Count 4.67 M/mm3 (4.6-6.20); Red Cell Distribution Width 13.9 % (11.5-14.5); White Blood Count 5.2 K/mm3 (4.5-10.0)
[2021-12-07 09:14] LABS: Hemoglobin A1C 6.3 % (<5.7)
[2021-12-07 09:15] LABS: Alanine Aminotransferase 23 U/L (6-50); Albumin Level 4.1 g/dL (3.5-5.1); Alkaline Phosphatase 84 U/L (38-126); Anion Gap 8 mmol/L (8-16); Aspartate Amino Transferase 21 U/L (17-59); Bilirubin,Total 0.5 mg/dL (0.2-1.3); Blood Urea Nitrogen 20 mg/dL (9-20); Carbon Dioxide 30 mmol/L (22-30); Chloride 103 mmol/L (98-107); Cholesterol 149 mg/dL (0-200); Estimated Glomerular Filt Rate > 60; Glucose 201 mg/dL (65-110); HDL Direct 27 mg/dL; Potassium 3.7 mmol/L (3.4-5.0); Sodium 141 mmol/L (137-145); Triglycerides 196 mg/dL (<150)
[2021-12-07 09:26] LABS: LDL Cholesterol Direct 83 mg/dL
[2021-12-07 09:45] LABS: Prostate Specific Antigen 0.5 ng/mL (< OR = 4.0)
== END 2021-12-07 08:16 | disposition home or self-care (01) ==
LOC: ANHLAB 08:17
PROVIDERS: PCP Internal Medicine; Visit Provider Nurse Practitioner
DX: E11.9 Type 2 diabetes mellitus without complications (principal); Z12.5 Encounter for screening for malignant neoplasm of prostate
CPT/HCPCS: 36415; 80053; 80061; 83036; 84153; 85025; G0103

== ENCOUNTER 2021-12-19 10:41 | Outpatient (CLI) | payer BC, SELFPAY ==
--- NOTE | ~2021-12-19 | MR_ITS ---
EXAMINATION: MR thoracic spine wo con DATE: 12/19/2021 11:12 INDICATION: Worsening back pain. TECHNIQUE: Magnetic resonance imaging (MRI) of the thoracic spine was performed without intravenous c ontrast. Sagittal localizer T1-weighted FSE of the cervical spine was obtained. Thoracic spine sequen harrison included sagittal T2-weighted FSE, sagittal T1-weighted FSE, sagittal STIR FSE, and axial T2-weig hted FSE. COMPARISON: Chest 2 views 11/15/2021 FINDINGS: There is 4 degrees levocurvature of upper thoracic spine. There is a chronic compression fr acture of T12 with 2/5 loss of height. Intervertebral disc heights are normal in thoracic spine. The discs do not extend beyond the endplate margins in thoracic spine. There are bridging endplate osteop hytes at multiple levels in the spine, consistent with diffuse idiopathic skeletal hyperostosis (DISH ). There is multilevel facet joint osteoarthritis, severe at some levels. On the right, there is mild neural foraminal stenosis at T6-T7. On the left, there is mild neural foraminal stenosis at T6-T7. N o central canal stenosis. The spinal cord signal intensity is normal. IMPRESSION: 1. Mild thoracic spondylosis. 2. DISH. Reviewed, dictated and finalized at location A.
== END 2021-12-19 10:42 | disposition home or self-care (01) ==
LOC: ANHIMG 10:43
PROVIDERS: PCP Internal Medicine; Visit Provider Clinical Nurse Specialist
DX: M25.78 Osteophyte, vertebrae (principal); M47.894 Other spondylosis, thoracic region; M48.14 Ankylosing hyperostosis [Forestier], thoracic region
CPT/HCPCS: 72146

== ENCOUNTER 2022-05-04 10:08 | Outpatient (CLI) | payer BC, SELFPAY ==
[2022-05-04 14:17] LABS: Hemoglobin A1C 6.5 % (<5.7)
== END 2022-05-04 10:09 | disposition home or self-care (01) ==
PROVIDERS: PCP Internal Medicine; Visit Provider Nurse Practitioner
DX: R73.03 Prediabetes (principal)
CPT/HCPCS: 36415; 83036

== ENCOUNTER → 2022-10-29 12:30 | Outpatient (CLI) | payer BC, SELFPAY ==
--- NOTE | ~2022-10-29 | MR_ITS ---
EXAMINATION: MR brain/brain stem wo/w con DATE: 10/29/2022 13:38 INDICATION: Glossopharyngeal neuralgia. TECHNIQUE: Magnetic resonance imaging (MRI) of the brain and brainstem was performed without and with 19 mL Multihance intravenous contrast. Sequences included sagittal and axial T1-weighted FSE, axial diffusion-weighted FS EPI, axial T2*-weighted GRE, axial T2-weighted FLAIR Propeller, axial T2-weight ed Propeller, small jsgoh-zj-gavx coronal FIESTA, small jupaq-za-rsey coronal T1-weighted FSE, and sm all uwxox-qq-gwog axial T1-weighted SPGR. Postcontrast sequences included axial T1-weighted FSE, smal l wight-af-zvpc coronal T1-weighted FSE, and small famhk-yf-zymu axial T1-weighted SPGR. Apparent dif fusion coefficient (ADC) maps were created. COMPARISON: None. FINDINGS: There are no areas of restricted diffusion to suggest acute infarction. No intracranial hemorrhage or abnormal intracranial mass lesion. Minimal scattered foci of nonspecific increased T2-weighted signa l intensity in the cerebral white matter, predominantly involving the deep and periventricular white matter. There are no intraparenchymal signal abnormalities seen on the other pulse sequences. The addie tricles are symmetric and normal in size. Normal seventh/eighth cranial nerve complexes. The bilatera l glossopharyngeal nerves can be visualized coursing across the patent bilateral cerebellar medullary cisterns. No cerebellopontine angles masses. The internal auditory canal and vestibular canal appear normal. No evidence of mastoid or middle ear fluid. No abnormal masses or abnormally enhancing lesio ns identified at the jugular foramen. Visualized portions of the bilateral parotid glands are unremar kable. There are no abnormal extra-axial fluid collections. Flow voids are seen in the cerebral arter ies on the T2-weighted sequences consistent with their expected patency. Mild mucosal thickening in t he paranasal sinuses. Visualized orbits and soft tissues are unremarkable. There are no areas of abno rmal enhancement on the post contrast images. IMPRESSION: 1. Normal aging brain with minimal scattered calcific white matter T2 hyperintensity which is within normal limits for age and consistent with chronic small vessel ischemic disease. 2. No abnormal masses or abnormally enhancing lesions identified along the course of the bilateral gl ossopharyngeal or tympanic nerves. Reviewed, dictated and finalized at location A. IMPRESSION: 1. Normal aging brain with minimal scattered calcific white matter T2 hyperinte nsity which is within normal limits for age and consistent with chronic small v essel ischemic disease. 2. No abnormal masses or abnormally enhancing lesions identified along the cour se of the bilateral glossopharyngeal or tympanic nerves.
== END ==
PROVIDERS: PCP Internal Medicine; Visit Provider Nurse Practitioner
DX: G52.1 Disorders of glossopharyngeal nerve (principal)
CPT/HCPCS: 70553; A9577

== ENCOUNTER 2022-11-14 09:48 | Outpatient (CLI) | payer BC, SELFPAY ==
[2022-11-14 18:44] LABS: Basophils Absolute Auto 0.1 K/mm3 (0.0-0.1); Basophils Percent Auto 1.4 % (0.2-1.2); Eosinophils Absolute Auto 0.2 K/mm3 (0-0.3); Eosinophils Percent Auto 2.2 % (0-4.4); Hematocrit 44.7 % (42.0-52.0); Hemoglobin 15.2 g/dL (14.0-18.0); Immature Granulocyte Absolute 0.04 K/mm3 (0.00-0.031); Immature Granulocyte Percent A 0.5 % (0-0.5); Lymphocytes Absolute Auto 2.04 K/mm3 (0.9-3.2); Lymphocytes Percent Auto 27.6 % (18.3-44.2); Mean Corpuscular Hemoglobin 30.6 pg (26-34); Mean Corpuscular Volume 89.9 fl (80-100); Mean Platelet Volume 10.7 fl (7.4-10.4); Monocytes Absolute Auto 0.5 K/mm3 (0.1-0.6); Neutrophils Absolute Auto 4.5 K/mm3 (1.3-6.7); Neutrophils Percent Auto 61.3 % (45.5-73.1); Platelet Count Result 234 k/mm3 (150-375); Red Blood Count 4.97 M/mm3 (4.6-6.20); Red Cell Distribution Width 12.9 % (11.5-14.5); White Blood Count 7.4 K/mm3 (4.5-10.0)
[2022-11-14 18:53] LABS: Alanine Aminotransferase 35 U/L (6-50); Albumin Level 4.3 g/dL (3.5-5.1); Alkaline Phosphatase 88 U/L (38-126); Anion Gap 4 mmol/L (8-16); Aspartate Amino Transferase 46 U/L (17-59); Bilirubin,Total 0.8 mg/dL (0.2-1.3); Blood Urea Nitrogen 22 mg/dL (9-20); Calcium 8.8 mg/dL (8.4-10.2); Carbon Dioxide 32 mmol/L (22-30); Chloride 102 mmol/L (98-107); Cholesterol 197 mg/dL (0-200); Estimated Glomerular Filt Rate > 60; Glucose 143 mg/dL (65-110); HDL Direct 33 mg/dL; Potassium 3.8 mmol/L (3.4-5.0); Sodium 138 mmol/L (137-145); Triglycerides 246 mg/dL (<150)
[2022-11-14 18:59] LABS: Appearance Urine Cloudy (Clear); Bilirubin Urine Negative (Negative); Blood Urine Negative (Negative); Color Urine Yellow (Yellow); Glucose Urine UA Negative (Negative); Ketones Urine Negative (Negative); Leukocyte Esterase Ur Negative LEU/UL (Negative); Nitrate Urine Negative (Negative); Protein Urine Negative (Negative); Specific Grav Ur 1.025 (1.001-1.035); Urobilinogen Urine 0.2 mg/dL (<2.0); pH Urine 5.5 (5.0-9.0)
[2022-11-14 19:00] LABS: Bacteria Urine None Seen /hpf; RBC Urine 0-2 /hpf (0-2); Squamous Epithelial Cell Urine None seen /hpf (Few); WBC Urine 0-5 /hpf
[2022-11-14 19:04] LABS: LDL Cholesterol Direct 104 mg/dL
[2022-11-14 19:19] LABS: Prostate Specific Antigen 0.4 ng/mL (< OR = 4.0)
[2022-11-14 19:31] LABS: Add Urine Microscopic? YES
[2022-11-14 19:38] LABS: Creatinine Urine 220.3 mg/dL
[2022-11-14 19:43] LABS: MALB Creatinine Ratio 4.7 mg/g (0-30); Microalbumin Urine Random 10.3 mg/L (0-16.7)
[2022-11-14 19:47] LABS: Hemoglobin A1C 6.2 % (<5.7)
== END 2022-11-14 09:49 | disposition home or self-care (01) ==
LOC: ANHGOSHLAB 09:49
PROVIDERS: PCP Internal Medicine; Visit Provider Nurse Practitioner
DX: E11.9 Type 2 diabetes mellitus without complications (principal); Z12.5 Encounter for screening for malignant neoplasm of prostate; R82.90 Unspecified abnormal findings in urine; I10 Essential (primary) hypertension
CPT/HCPCS: 36415; 80053; 80061; 81001; 82043; 83036; 84153; 85025; G0103

== ENCOUNTER 2023-02-28 10:20 | Outpatient (CLI) | payer MEDICARE, SELFPAY ==
[2023-02-28 11:09] LABS: Cholesterol 201 mg/dL (0-200); HDL Direct 30 mg/dL; Triglycerides 185 mg/dL (<150)
[2023-02-28 11:20] LABS: LDL Cholesterol Direct 122 mg/dL
[2023-03-01 06:16] LABS: Hemoglobin A1C 6.2 % (<5.7)
== END 2023-02-28 10:21 | disposition home or self-care (01) ==
LOC: ANHLAB 10:24
PROVIDERS: PCP Internal Medicine; Visit Provider Nurse Practitioner
DX: E11.9 Type 2 diabetes mellitus without complications (principal)
CPT/HCPCS: 36415; 80061; 83036

== ENCOUNTER 2023-03-06 14:03 | Outpatient (CLI) | payer MEDICARE, SELFPAY ==
[2023-03-06 14:38] LABS: Basophils Absolute Auto 0.1 K/mm3 (0.0-0.1); Basophils Percent Auto 1.1 % (0.2-1.2); Eosinophils Absolute Auto 0.2 K/mm3 (0-0.3); Eosinophils Percent Auto 3.5 % (0-4.4); Hematocrit 42.6 % (42.0-52.0); Hemoglobin 14.7 g/dL (14.0-18.0); Immature Granulocyte Absolute 0.02 K/mm3 (0.00-0.031); Immature Granulocyte Percent A 0.3 % (0-0.5); Lymphocytes Absolute Auto 1.89 K/mm3 (0.9-3.2); Lymphocytes Percent Auto 30.3 % (18.3-44.2); Mean Corpuscular HGB Conc 34.5 g/dl (32-36); Mean Corpuscular Hemoglobin 31.3 pg (26-34); Mean Corpuscular Volume 90.8 fl (80-100); Monocytes Absolute Auto 0.5 K/mm3 (0.1-0.6); Monocytes Percent Auto 7.5 % (2.6-8.5); Neutrophils Absolute Auto 3.6 K/mm3 (1.3-6.7); Neutrophils Percent Auto 57.3 % (45.5-73.1); Platelet Count Result 213 k/mm3 (150-375); Red Blood Count 4.69 M/mm3 (4.6-6.20); Red Cell Distribution Width 12.3 % (11.5-14.5); White Blood Count 6.2 K/mm3 (4.5-10.0)
[2023-03-09 21:43] LABS: Testosterone Total 201 ng/dL (250-1100)
== END 2023-03-06 14:04 | disposition home or self-care (01) ==
PROVIDERS: PCP Internal Medicine; Visit Provider Nurse Practitioner Adult Health
DX: R06.09 Other forms of dyspnea (principal); I25.10 Atherosclerotic heart disease of native coronary artery without angina pectoris
CPT/HCPCS: 36415; 84403; 84443; 85025

== ENCOUNTER 2023-04-18 13:37 | Outpatient (RCR) | payer MEDICARE, SELFPAY ==
[2023-04-23 12:03] LABS: Anion Gap 9 mmol/L (8-16); Blood Urea Nitrogen 19 mg/dL (9-20); Calcium 8.5 mg/dL (8.4-10.2); Carbon Dioxide 27 mmol/L (22-30); Chloride 102 mmol/L (98-107); Estimated Glomerular Filt Rate > 60; Glucose 179 mg/dL (65-110); Sodium 138 mmol/L (137-145)
== END 2023-04-23 07:35 | disposition home or self-care (01) ==
LOC: ANHLAB 13:37
PROVIDERS: PCP Internal Medicine; Visit Provider Student in an Organized Health Care Education/Training Program
DX: G52.1 Disorders of glossopharyngeal nerve (principal)
CPT/HCPCS: 36415; 80048

== ENCOUNTER 2023-06-13 08:30 | Outpatient (CLI) | payer MEDICARE, SELFPAY ==
[2023-06-13 09:03] LABS: Basophils Absolute Auto 0.1 K/mm3 (0.0-0.1); Basophils Percent Auto 1.2 % (0.2-1.2); Eosinophils Absolute Auto 0.2 K/mm3 (0-0.3); Eosinophils Percent Auto 3.3 % (0-4.4); Hematocrit 43.5 % (42.0-52.0); Hemoglobin 14.7 g/dL (14.0-18.0); Immature Granulocyte Absolute 0.02 K/mm3 (0.00-0.031); Immature Granulocyte Percent A 0.3 % (0-0.5); Lymphocytes Absolute Auto 1.47 K/mm3 (0.9-3.2); Lymphocytes Percent Auto 25.3 % (18.3-44.2); Mean Corpuscular HGB Conc 33.8 g/dl (32-36); Mean Corpuscular Hemoglobin 30.6 pg (26-34); Mean Corpuscular Volume 90.6 fl (80-100); Mean Platelet Volume 10.5 fl (7.4-10.4); Monocytes Absolute Auto 0.4 K/mm3 (0.1-0.6); Monocytes Percent Auto 7.4 % (2.6-8.5); Neutrophils Absolute Auto 3.6 K/mm3 (1.3-6.7); Neutrophils Percent Auto 62.5 % (45.5-73.1); Platelet Count Result 186 k/mm3 (150-375); White Blood Count 5.8 K/mm3 (4.5-10.0)
[2023-06-13 09:55] LABS: Creatinine Urine 200.5 mg/dL
[2023-06-13 10:00] LABS: MALB Creatinine Ratio 3.3 mg/g (0-30); Microalbumin Urine Random 6.6 mg/L (0-16.7)
[2023-06-13 10:56] LABS: Alanine Aminotransferase 28 U/L (6-50); Alkaline Phosphatase 85 U/L (38-126); Anion Gap 9 mmol/L (8-16); Aspartate Amino Transferase 25 U/L (17-59); Bilirubin,Total 0.5 mg/dL (0.2-1.3); Blood Urea Nitrogen 22 mg/dL (9-20); Calcium 8.9 mg/dL (8.4-10.2); Carbon Dioxide 30 mmol/L (22-30); Chloride 103 mmol/L (98-107); Cholesterol 206 mg/dL (0-200); Estimated Glomerular Filt Rate > 60; Glucose 169 mg/dL (65-110); HDL Direct 30 mg/dL; Potassium 4.1 mmol/L (3.4-5.0); Sodium 142 mmol/L (137-145); Triglycerides 277 mg/dL (<150)
[2023-06-13 11:07] LABS: LDL Cholesterol Direct 123 mg/dL
[2023-06-13 11:29] LABS: Prostate Specific Antigen 0.4 ng/mL (< OR = 4.0)
[2023-06-13 11:52] LABS: Hemoglobin A1C 6.7 % (<5.7)
== END 2023-06-13 08:31 | disposition home or self-care (01) ==
LOC: ANHLAB 08:30
PROVIDERS: PCP Internal Medicine; Visit Provider Nurse Practitioner
DX: R73.03 Prediabetes (principal); E78.5 Hyperlipidemia, unspecified; Z12.5 Encounter for screening for malignant neoplasm of prostate; I10 Essential (primary) hypertension
CPT/HCPCS: 36415; 80053; 80061; 82043; 83036; 84153; 85025; G0103

== ENCOUNTER → 2023-06-17 11:17 | Outpatient (CLI) | payer MEDICARE, SELFPAY ==
--- NOTE | ~2023-06-17 | XR_ITS ---
XR chest 2V DATE: 06/17/2023 11:29 INDICATION: Left pleural chest pain. Hypertension. Coronary artery bypass graft surgery in 2021. Type 2 diabetes mellitus. TECHNIQUE: 2 views COMPARISON: 11/15/2021 2 view chest FINDINGS: Status post sternotomy. Normal heart size. No hilar or mediastinal enlargement. Calcified m ediastinal nodes consistent with old pulmonary granulomatous disease. No pulmonary infiltrate or consolidation, pleural effusion or pulmonary vascular congestion or pneumo thorax is detected. Degenerative spurring of the thoracic spine. Chronic moderate anterior wedge compression fracture deformity of T12 IMPRESSION: Status post sternotomy; history of coronary bypass graft surgery No active cardiopulmonary disease Reviewed, dictated and finalized at location B. PS ARCHITECT
== END ==
PROVIDERS: PCP Nurse Practitioner Family; Visit Provider Nurse Practitioner Family
DX: R07.81 Pleurodynia (principal); I10 Essential (primary) hypertension; E11.9 Type 2 diabetes mellitus without complications; Z95.1 Presence of aortocoronary bypass graft
CPT/HCPCS: 71046

== ENCOUNTER 2023-10-09 10:19 | Outpatient (CLI) | payer MEDICARE, SELFPAY | END 2023-10-09 10:20 | LOC: GOSHIMG 10:20 | PROVIDERS: PCP Internal Medicine; Visit Provider Clinical Nurse Specialist | DX: M25.571 Pain in right ankle and joints of right foot (principal) | CPT/HCPCS: 73610 ==

== ENCOUNTER 2023-10-22 09:44 | Outpatient (CLI) | payer MEDICARE, SELFPAY ==
[2023-10-22 10:30] LABS: Hemoglobin A1C 6.6 % (<5.7)
[2023-10-22 12:28] LABS: Cholesterol 258 mg/dL (0-200); HDL Direct 25 mg/dL; Triglycerides 483 mg/dL (<150)
[2023-10-22 12:38] LABS: LDL Cholesterol Direct 111 mg/dL
== END 2023-10-22 09:45 | disposition home or self-care (01) ==
LOC: ANHLAB 09:46
PROVIDERS: PCP Internal Medicine; Visit Provider Nurse Practitioner
DX: E11.9 Type 2 diabetes mellitus without complications (principal)
CPT/HCPCS: 36415; 80061; 83036

== ENCOUNTER 2023-10-31 14:47 | Outpatient (CLI) | payer MEDICARE, SELFPAY ==
[2023-10-31 20:29] LABS: Hepatitis B Surface Antigen Negative (Negative)
[2023-10-31 20:41] LABS: HIV 1/2 Ab P24 Ag Result Negative (Negative)
[2023-10-31 20:47] LABS: Hepatitis C Virus Antibody Negative (Negative)
[2023-11-01 14:06] LABS: Rapid Plasma Reagin Non-Reactive (NonReactive)
[2023-11-04 11:14] LABS: Herpes Simplex Type 1 DNA PCR NOT DETECTED; Herpes Simplex Type 2 DNA PCR NOT DETECTED
== END 2023-10-31 14:48 | disposition home or self-care (01) ==
LOC: ANHGOSHLAB 14:48
PROVIDERS: PCP Internal Medicine; Visit Provider Nurse Practitioner
DX: Z11.3 Encounter for screening for infections with a predominantly sexual mode of transmission (principal)
CPT/HCPCS: 36415; 86592; 86703; 86803; 87340; 87529; G0432

== ENCOUNTER 2023-10-31 15:03 | Outpatient (CLI) | payer MEDICARE, SELFPAY ==
--- NOTE | ~2023-10-31 | XR_ITS ---
EXAMINATION: XR_[id number]_CR DATE: 10/31/2023 15:18 INDICATION: Pain at the first and second metatarsals post trauma 2 days prior TECHNIQUE: Standing dorsoplantar, two oblique and lateral views of the right foot were obtained. COMPARISON: None. FINDINGS: Alignment is normal. No fracture. Mild osteoarthritis at multiple joints in the mid and forefoot. Mod erate-sized plantar calcaneal spur. Soft tissues are unremarkable. No radiopaque foreign bodies. IMPRESSION: 1. Mild polyarticular osteoarthritis in the mid and forefoot. No acute osseous abnormality. Reviewed, dictated and finalized at location A.
== END 2023-10-31 15:04 ==
LOC: GOSHIMG 15:05
PROVIDERS: PCP Internal Medicine; Visit Provider Nurse Practitioner
DX: M19.071 Primary osteoarthritis, right ankle and foot (principal)
CPT/HCPCS: 73630

== ENCOUNTER 2023-11-08 12:36 | Outpatient (CLI) | payer MEDICARE, SELFPAY ==
--- NOTE | ~2023-11-08 | US_ITS ---
US soft tissue LE RT Ordering provider: Julianne Arnold NP History: . M79.671 - Pain in right foot . Comparison: None. Technique: Ultrasound right plantar metatarsophalangeal joint area. Findings/impression: No mass, or foreign body is seen. Reviewed, dictated and finalized at location A.
== END 2023-11-08 12:37 ==
LOC: GOSHIMG 12:37
PROVIDERS: PCP Internal Medicine; Visit Provider Nurse Practitioner
DX: M79.671 Pain in right foot (principal)
CPT/HCPCS: 76882

== ENCOUNTER 2023-11-13 01:42 | Emergency (ER) | payer MEDICARE, SELFPAY ==
--- NOTE | ~2023-11-13 | XR_ITS ---
Clinical Indication: Chest pain PA and lateral views of the chest: Comparison: 06/17/2023 Findings: The lungs are clear, without evidence of focal consolidation or pleural effusion. Cardiome diastinal silhouette is stable. Bones and soft tissues are stable. Impression: No acute abnormality. Reviewed, dictated and finalized at location . Impression: No acute abnormality.
[2023-11-13 01:48] VITALS: BP 158/85; PULSE 100; RESP 18; TEMP 36.7; O2SAT 92
--- NOTE | 2023-11-13 01:50 | ED.GENADULT ---
HPI - General Adult General Chief complaint: Chest Pain Stated complaint: sob, side pain Time Seen by Provider: 11/13/23 01:50 History of Present Illness HPI narrative: Patient is a 63-year-old male with history of prior [place], double vessel CABG, asthma, hypertension here with cough, shortness of breath, left-sided chest pain. Patient states over the last 7 days he has had a progressive cough. He states that initially he thought it may be allergies, had a white sputum which over the last few days has turned green in color and increased in volume. He has had some increased inhaler use over the last few days as well. He went to his primary care doctor yesterday, was diagnosed with bronchitis, started on prednisone and doxycycline. His 1st doses of these were today. He notes that over the last 7-8 hours he began having some left-sided chest pain. He states it feels like when you were running as a child and get a stitch in her side. The pain is located over his left ribs and worse with coughing and deep breaths. He note subjective fever. His has been sick with similar throughout the week this week. He does note some chronic right lower extremity swelling that Walk since wanes and has been present since his bypass surgery several years ago. No prior PE/DVT. He takes plavix and aspirin. He did have some diarrhea few days ago which has resolved. Related Data Home Medications Medication Instructions Recorded Confirmed aspirin 81 mg tablet,delayed 81 mg PO DAILY 03/07/21 11/12/23 release (Adult Low Dose Aspirin) clopidogrel 75 mg tablet (Plavix) 75 mg PO DAILY 07/11/21 11/12/23 metoprolol tartrate 100 mg tablet 100 mg PO BID 07/11/21 11/12/23 atorvastatin 40 mg tablet 40 mg PO QHS 09/28/21 11/12/23 omega-3 fatty acids 1,000 mg 2,000 mg PO BID 03/26/23 11/12/23 capsule Allergies Allergy/AdvReac Type Severity Reaction Status Date / Time No Known Allergies Allergy Verified 11/12/23 10:08 Review of Systems Review of Systems: All systems reviewed & are unremarkable except as noted in HPI and below PMFSH Past Medical History Medical History Acute costochondritis Arthritis Asthma Gastroesophageal reflux disease Hyperlipidemia Hypertension Skin cancer Type 2 diabetes mellitus Surgical History Surgical History History of back surgery History of colonoscopy History of repair of right rotator cuff Status post double vessel coronary artery bypass July 2021 Status post surgical removal of malignant neoplasm of skin Status post tendon repair Right hand Family History Family History Father Alcohol abuse Skin cancer Mother Diabetes mellitus Pancreatic cancer Sibling Cancer multiple siblings/half siblings with cancers of unknown type Sibling Malignant neoplasm of prostate Sibling Cancer Sibling Cancer Social History Social History Social History: Surrogate decision maker: Leatha Roque or Melanie Pb, daughters. Code status: Full code. Smoking status: Former smoker Alcohol intake: current Drinks per week: 4 Substance use: never Substance use type: does not use Last use: 4 beers once per week Do You Feel Safe in your Home?: Yes Lack of Transportation: No Lack of Food: Never True Current Housing: I Have Housing Concerned About Future Housing: No Difficulty Paying Gas/Electric Bills: No Difficulty Paying for Meds: No Currently Unemployed: No Education: Trade/Vocational Certificate Difficulty w/ Childcare or Family Care: No Living arrangements: with family Additional living arrangements comments: The patient lives in [place]. 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
--- NOTE | 2023-11-13 01:52 | ECG_ITS ---
Test Date: 2023-11-13 01:55:02 Measurements Intervals [place] Rate: 100 P: 31 GA: 140 QRS: 86 QRSD: 102 T: 61 QT: 306 QTc: 396 Interpretive Statements SINUS TACHYCARDIA NONSPECIFIC T-WAVE ABNORMALITY- HIGH LATERAL LEADS BASELINE ARTIFACT- I, II, III, AVR, AVL, AVF, V1-V6 BORDERLINE ECG No previous ECG available for comparison Electronically Signed On 11-13-2023 06:29:51 CDT by Radu Alvarez D.O.
[2023-11-13 01:53] VITALS: O2SAT 94
[2023-11-13 01:54] VITALS: PULSE 100
[2023-11-13] MEDS: ASPIRIN 81 MG CHEWABLE TABLET 324 MG PO (02:00)
[2023-11-13 02:04] LABS: Basophils Absolute Auto 0.1 K/mm3 (0.0-0.1); Basophils Percent Auto 0.4 % (0.2-1.2); Eosinophils Percent Auto 0.2 % (0-4.4); Hematocrit 37.4 % (42.0-52.0); Hemoglobin 13.2 g/dL (14.0-18.0); Immature Granulocyte Percent A 0.8 % (0-0.5); Lymphocytes Absolute Auto 1.95 K/mm3 (0.9-3.2); Lymphocytes Percent Auto 15.1 % (18.3-44.2); Mean Corpuscular HGB Conc 35.3 g/dl (32-36); Mean Corpuscular Hemoglobin 31.2 pg (26-34); Mean Corpuscular Volume 88.4 fl (80-100); Mean Platelet Volume 10.2 fl (7.4-10.4); Monocytes Absolute Auto 1.1 K/mm3 (0.1-0.6); Monocytes Percent Auto 8.7 % (2.6-8.5); Neutrophils Absolute Auto 9.6 K/mm3 (1.3-6.7); Neutrophils Percent Auto 74.8 % (45.5-73.1); Platelet Count Result 251 k/mm3 (150-375); Red Blood Count 4.23 M/mm3 (4.6-6.20); Red Cell Distribution Width 11.9 % (11.5-14.5); White Blood Count 12.9 K/mm3 (4.5-10.0)
[2023-11-13 02:12] LABS: Alanine Aminotransferase 25 U/L (6-50); Albumin Level 4.5 g/dL (3.5-5.1); Alkaline Phosphatase 90 U/L (38-126); Anion Gap 9 mmol/L (4-12); Aspartate Amino Transferase 20 U/L (17-59); Bilirubin,Total 0.7 mg/dL (0.2-1.3); Blood Urea Nitrogen 13 mg/dL (9-20); Calcium 9.2 mg/dL (8.4-10.2); Carbon Dioxide 28 mmol/L (22-30); Chloride 99 mmol/L (98-107); Estimated CRCL calculation 105 ml/min; Estimated Glomerular Filt Rate > 60; Glucose 258 mg/dL (65-110); Lipase 55 U/L (23-300); Potassium 3.9 mmol/L (3.4-5.0); Sodium 136 mmol/L (137-145)
[2023-11-13 02:13] LABS: Prothrombin Time 13.4 Seconds (11.1-14.7)
[2023-11-13 02:14] LABS: Partial Thromboplastin Time 30.4 Seconds (22.3-36.8)
[2023-11-13 02:24] LABS: Troponin I < 0.012 ng/mL (0.000-0.034)
[2023-11-13 02:31] LABS: D Dimer 0.75 ug/mL (<0.48)
[2023-11-13] MEDS: IPRATROPIUM BR 0.02% INH SOLN 0.5 MG/2.5 ML VIAL 1.5 MG INHALATION (02:34)
[2023-11-13] MEDS: LEVALBUTEROL NEB 1.25 MG/3 ML 2.5 MG INHALATION (02:34)
[2023-11-13 02:35] VITALS: PULSE 98; RESP 17
[2023-11-13 03:03] LABS: Influenza A QL RT-PCR Negative (Negative); Influenza B QL RT-PCR Negative (Negative); RSV RNA, RT-PCR Negative (Negative); SARS-CoV-2 RNA PCR Negative (Negative)
[2023-11-13 03:19] VITALS: BP 145/85; PULSE 106; RESP 21; O2SAT 96
[2023-11-13 03:37] VITALS: PULSE 114; RESP 29; O2SAT 95
== END 2023-11-13 04:45 | disposition home or self-care (01) ==
PROVIDERS: Emergency Provider Student in an Organized Health Care Education/Training Program; PCP Internal Medicine
DX: J18.9 Pneumonia, unspecified organism (principal); J45.909 Unspecified asthma, uncomplicated; I10 Essential (primary) hypertension; I25.2 Old myocardial infarction; K21.9 Gastro-esophageal reflux disease without esophagitis; E78.5 Hyperlipidemia, unspecified; E11.9 Type 2 diabetes mellitus without complications; Z87.891 Personal history of nicotine dependence; Z20.822 Contact with and (suspected) exposure to COVID-19
CPT/HCPCS: 36415; 71046; 80053; 83690; 84484; 85025; 85380; 85610; 85730; 87637; 93005; 94640; 99284; A9270

== ENCOUNTER 2024-02-26 02:20 | Day surgery (SDC) | payer MEDICARE, SELFPAY ==
[2024-02-13 13:41] VITALS: BMI 38.3
--- NOTE | 2024-02-13 13:52 | SUR.PREOP ---
Spoke with patient regarding medication Plavix. Pt. verbalizes understanding that the last dose of Plavix is to be taken on 02/18/2024 and the Endoscopist will instruct them when to restart after the procedure.
[2024-02-26 07:09] VITALS: BP 149/75; PULSE 70; RESP 18; TEMP 36.1; O2SAT 98; BMI 37.3
[2024-02-26] MEDS: LACTATED RINGERS 1,000 ML 150 ML IV CONT (07:22)
--- NOTE | 2024-02-26 08:32 | WPDANESEPPF ---
Anes - Initial Pre Proc Eval Procedure: Operation Date: 02/26/24 08:30 Proposed Procedures p Colonoscopy - Jignesh Singh MD Date/Time: 02/26/24 08:32 Surgeon: Jignesh Singh MD Pre Op Diagnosis: screening colon Patient Data Age: 64 Gender: M Height: 1.88 m Weight: 132 kg Last Vital Signs Temp 97 F L 02/26/24 07:09 Pulse 70 02/26/24 07:09 Resp 18 02/26/24 07:09 BP 149/75 H 02/26/24 07:09 Pulse Ox 98 02/26/24 07:09 O2 Del Method Room Air 02/26/24 07:09 Allergies Allergy/AdvReac Type Severity Reaction Status Date / Time No Known Allergies Allergy Verified 02/26/24 07:07 Home Medications Medication Instructions Recorded Confirmed Type aspirin 81 mg tablet,delayed 81 mg PO DAILY 03/07/21 02/26/24 History release (Adult Low Dose Aspirin) clopidogrel 75 mg tablet (Plavix) 75 mg PO DAILY 07/11/21 02/26/24 History metoprolol tartrate 100 mg tablet 100 mg PO BID 07/11/21 02/26/24 History atorvastatin 40 mg tablet 40 mg PO QHS 09/28/21 02/26/24 History omega-3 fatty acids 1,000 mg 2,000 mg PO BID 03/26/23 02/26/24 History capsule albuterol sulfate 90 mcg/actuation 1 inh inhalation Q4H PRN shortness 10/09/23 02/26/24 Rx aerosol inhaler of breath or wheezing #8.5 grams hydrochlorothiazide 12.5 mg tablet 12.5 mg PO DAILY #90 tabs 11/12/23 02/26/24 Rx omeprazole 40 mg capsule,delayed 40 mg PO DAILY #90 caps 11/12/23 02/26/24 Rx release montelukast 10 mg tablet 10 mg PO DAILY #90 tabs 11/13/23 02/26/24 Rx colchicine 0.6 mg tablet 0.6 mg PO .COMPLEX #15 tabs 11/19/23 02/26/24 Rx carbamazepine 200 mg tablet See Rx Instructions .Route 02/06/24 02/26/24 Rx .COMPLEX #180 tabs Patient hx anesthesia problems: none Family hx anesthesia problems: none Results Review: All pre-operative results and documents have been reviewed as part of the pre-operative evaluation. [facility] Past Medical History Medical History Acute costochondritis Arthritis Asthma Gastroesophageal reflux disease Hyperlipidemia Hypertension Skin cancer Type 2 diabetes mellitus Surgical History Surgical History History of back surgery History of colonoscopy History of repair of right rotator cuff Status post double vessel coronary artery bypass July 2021 Status post surgical removal of malignant neoplasm of skin Status post tendon repair Right hand Family History Family History Father Alcohol abuse Skin cancer Mother Diabetes mellitus Pancreatic cancer Sibling Cancer multiple siblings/half siblings with cancers of unknown type Sibling Malignant neoplasm of prostate Sibling Cancer Sibling Cancer Social History Social History Social History: Surrogate decision maker: Leatha Roque or Melanie Mendozaalvaro, daughters. Code status: Full code. Smoking status: Former smoker Alcohol intake: current Drinks per week: 2 Substance use: never Substance use type: does not use Last use: 4 beers once per week Do You Feel Safe in your Home?: Yes Lack of Transportation: No Lack of Food: Never True Current Housing: I Have Housing Concerned About Future Housing: No Difficulty Paying Gas/Electric Bills: No Difficulty Paying for Meds: No Currently Unemployed: No Education: Trade/Vocational Certificate Difficulty w/ Childcare or Family Care: No Living arrangements: with family Additional living arrangements comments: with sp Occupation/Education: occupation 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 Gender identity (if verbalized by the patient): Male Spiritual care concerns: No Anes - Eval Final PreProcedure Day of Procedure 02/26/24 08:32 Patient weight: obese Heart: regular rate and rhythm Lung
--- NOTE | 2024-02-26 08:37 | PM.IMHP ---
H&P: HPI History of Present Illness Date/Time: 02/26/24 08:37 Chief Complaint: Screening colonoscopy Narrative: the patient's last colonoscopy was 10 years ago. He is here for screening colonoscopy. Review of Systems Review of Systems: All systems reviewed & are unremarkable except as noted in HPI and below PMFSH Past Medical History Medical History Acute costochondritis Arthritis Asthma Gastroesophageal reflux disease Hyperlipidemia Hypertension Skin cancer Type 2 diabetes mellitus Surgical History Surgical History History of back surgery History of colonoscopy History of repair of right rotator cuff Status post double vessel coronary artery bypass July 2021 Status post surgical removal of malignant neoplasm of skin Status post tendon repair Right hand Family History Family History Father Alcohol abuse Skin cancer Mother Diabetes mellitus Pancreatic cancer Sibling Cancer multiple siblings/half siblings with cancers of unknown type Sibling Malignant neoplasm of prostate Sibling Cancer Sibling Cancer Social History Social History Social History: Surrogate decision maker: Leatha Roque or Melanie Ambriz, daughters. Code status: Full code. Smoking status: Former smoker Alcohol intake: current Drinks per week: 2 Substance use: never Substance use type: does not use Last use: 4 beers once per week Do You Feel Safe in your Home?: Yes Lack of Transportation: No Lack of Food: Never True Current Housing: I Have Housing Concerned About Future Housing: No Difficulty Paying Gas/Electric Bills: No Difficulty Paying for Meds: No Currently Unemployed: No Education: Trade/Vocational Certificate Difficulty w/ Childcare or Family Care: No Living arrangements: with family Additional living arrangements comments: with sp Occupation/Education: occupation 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 Gender identity (if verbalized by the patient): Male Spiritual care concerns: No Meds Home Medications and Allergies Home Medications Medication Instructions Recorded Confirmed Type aspirin 81 mg tablet,delayed 81 mg PO DAILY 03/07/21 02/26/24 History release (Adult Low Dose Aspirin) clopidogrel 75 mg tablet (Plavix) 75 mg PO DAILY 07/11/21 02/26/24 History metoprolol tartrate 100 mg tablet 100 mg PO BID 07/11/21 02/26/24 History atorvastatin 40 mg tablet 40 mg PO QHS 09/28/21 02/26/24 History omega-3 fatty acids 1,000 mg 2,000 mg PO BID 03/26/23 02/26/24 History capsule albuterol sulfate 90 mcg/actuation 1 inh inhalation Q4H PRN shortness 10/09/23 02/26/24 Rx aerosol inhaler of breath or wheezing #8.5 grams hydrochlorothiazide 12.5 mg tablet 12.5 mg PO DAILY #90 tabs 11/12/23 02/26/24 Rx omeprazole 40 mg capsule,delayed 40 mg PO DAILY #90 caps 11/12/23 02/26/24 Rx release montelukast 10 mg tablet 10 mg PO DAILY #90 tabs 11/13/23 02/26/24 Rx colchicine 0.6 mg tablet 0.6 mg PO .COMPLEX #15 tabs 11/19/23 02/26/24 Rx carbamazepine 200 mg tablet See Rx Instructions .Route 02/06/24 02/26/24 Rx .COMPLEX #180 tabs Allergies Allergy/AdvReac Type Severity Reaction Status Date / Time No Known Allergies Allergy Verified 02/26/24 07:07 Vital Signs Vital Signs - 24 hr 02/26/24 07:09 Temperature 97 F L Pulse Rate 70 Respiratory Rate 18 Blood Pressure 149/75 H Pulse Oximetry 98 Oxygen Delivery Room Air Assessment and Plan Assessment and plan (1) Screening for colon cancer: Code(s): Z12.11 - Encounter for screening for malignant neoplasm of colon Status: Acute Plan Patient deemed a good candidate for colonoscopy. Will proceed
[2024-02-26 08:58] VITALS: BP 126/86; PULSE 78; RESP 19; O2SAT 98
[2024-02-26 09:08] VITALS: BP 138/85; PULSE 65; RESP 20; O2SAT 98
[2024-02-26 09:16] VITALS: BP 134/82; PULSE 63; RESP 21; O2SAT 98
--- NOTE | 2024-02-26 09:34 | SUR.PHASEII ---
Pt. may resume Plavix today per Dr. Singh bedside instructions.
== END 2024-02-26 09:35 | disposition home or self-care (01) ==
PROVIDERS: PCP Internal Medicine; Referring Provider Nurse Practitioner; Visit Provider Internal Medicine Gastroenterology
PROC: 0DJD8ZZ Inspection of Lower Intestinal Tract, Via Natural or Artificial Opening Endoscopic (ICD-10-PCS; CPT 45378; principal; 2024-02-26 08:30)
DX: Z12.11 Encounter for screening for malignant neoplasm of colon (principal); E78.5 Hyperlipidemia, unspecified; I10 Essential (primary) hypertension; E11.9 Type 2 diabetes mellitus without complications; J45.909 Unspecified asthma, uncomplicated; K21.9 Gastro-esophageal reflux disease without esophagitis; E66.9 Obesity, unspecified; Z68.37 Body mass index [BMI] 37.0-37.9, adult; Z79.82 Long term (current) use of aspirin; Z79.02 Long term (current) use of antithrombotics/antiplatelets; Z79.51 Long term (current) use of inhaled steroids; Z98.890 Other specified postprocedural states; Z98.1 Arthrodesis status; Z95.1 Presence of aortocoronary bypass graft; Z87.891 Personal history of nicotine dependence; Z85.828 Personal history of other malignant neoplasm of skin; Z84.0 Family history of diseases of the skin and subcutaneous tissue; Z80.0 Family history of malignant neoplasm of digestive organs; Z80.42 Family history of malignant neoplasm of prostate
CPT/HCPCS: G0105; J2003; J2704; J7120

== ENCOUNTER 2024-05-26 10:22 | Outpatient (CLI) | payer MEDICARE, SELFPAY ==
[2024-05-25 11:02] LABS: Basophils Absolute Auto 0.1 K/mm3 (0.0-0.1); Basophils Percent Auto 1.4 % (0.2-1.2); Eosinophils Absolute Auto 0.2 K/mm3 (0-0.3); Eosinophils Percent Auto 3.1 % (0-4.4); Hematocrit 43.6 % (42.0-52.0); Hemoglobin 14.7 g/dL (14.0-18.0); Immature Granulocyte Absolute 0.02 K/mm3 (0.00-0.031); Immature Granulocyte Percent A 0.3 % (0-0.5); Lymphocytes Absolute Auto 1.84 K/mm3 (0.9-3.2); Lymphocytes Percent Auto 31.3 % (18.3-44.2); Mean Corpuscular HGB Conc 33.7 g/dl (32-36); Mean Corpuscular Hemoglobin 31.1 pg (26-34); Mean Corpuscular Volume 92.2 fl (80-100); Mean Platelet Volume 10.3 fl (7.4-10.4); Monocytes Absolute Auto 0.3 K/mm3 (0.1-0.6); Monocytes Percent Auto 5.8 % (2.6-8.5); Neutrophils Absolute Auto 3.4 K/mm3 (1.3-6.7); Neutrophils Percent Auto 58.1 % (45.5-73.1); Platelet Count Result 202 k/mm3 (150-375); Red Blood Count 4.73 M/mm3 (4.6-6.20); Red Cell Distribution Width 12.1 % (11.5-14.5); White Blood Count 5.9 K/mm3 (4.5-10.0)
[2024-05-25 11:31] LABS: LDL Cholesterol Direct 123 mg/dL
[2024-05-25 11:32] LABS: Alanine Aminotransferase 34 U/L (6-50); Albumin Level 4.4 g/dL (3.5-5.1); Alkaline Phosphatase 78 U/L (38-126); Anion Gap 7 mmol/L (4-12); Aspartate Amino Transferase 31 U/L (17-59); Bilirubin,Total 0.7 mg/dL (0.2-1.3); Blood Urea Nitrogen 18 mg/dL (9-20); Calcium 9.2 mg/dL (8.4-10.2); Carbon Dioxide 32 mmol/L (22-30); Chloride 100 mmol/L (98-107); Cholesterol 222 mg/dL (0-200); Estimated Glomerular Filt Rate > 60; Glucose 183 mg/dL (65-110); HDL Direct 32 mg/dL; Potassium 4.5 mmol/L (3.4-5.0); Sodium 139 mmol/L (137-145); Triglycerides 310 mg/dL (<150)
[2024-05-25 11:45] LABS: Prostate Specific Antigen 0.5 ng/mL (< OR = 4.0)
[2024-05-25 11:53] LABS: Hemoglobin A1C 7.1 % (<5.7)
[2024-05-25 12:00] LABS: Creatinine Urine 185.7 mg/dL
[2024-05-25 12:05] LABS: MALB Creatinine Ratio 13.2 mg/g (0-30); Microalbumin Urine Random 24.5 mg/L (0-16.7)
--- OUTSIDE RECORDS SUMMARY | 2024-06-04 21:11 | XMS_ITS | Referral Summary ---
Author Organization [facility] Address [address] [address] Care Team Providers Care Admissions Counselor Name Role Phone Unavailable Primary Care Provider Unavailabl e Source Comments [facility],non-owned Affiliates and Associated Physician Practices is amultiple site organization consisting of ambulatory clinics and hospital sitesin [place], [place], [place] and [place]. This disclosure is being madepursuant to the Care Everywhere program and may not contain all information available regarding this patient. Last updated 18.[facility] [employer] Social History Tobacco Use Types Packs/Day Years Used Date Smoking Tobacco: Never Assessed Sex and Gender Information Value Date Recorded Sex Assigned at Not on file Gender Identity Not on file Sexual Orientation Not on file Plan of Treatment Not on file
--- OUTSIDE RECORDS SUMMARY | 2024-06-04 21:11 | XMS_ITS | Data Portability ---
Author Organization [facility] Address [address] [place] [address] Care Team Providers Care Supervisor Ke[employer] Name Role Phone TABATHA HENDRIX Primary Care Provider [phone] Assessment No assessment recorded. Plan of Treatment Reminders Order Date Submit Date Provider Last Modified By Organization Details Last Modified Time Details Appointments None recorded . Lab PSA, serum or plasma 2018 [facility], [address], [place], [address], 9 13:08:41 CMP, serum or plasma 2018 019 [facility], [address], [place], [address], 9 13:08:39 lipid panel, serum 2018 019 [facility], [address], [place], [address], 9 13:08:41 HbA1c (hemoglo bin A1c), blood 2018 019 [facility] In-Office Order, Internal Use Only DO Not Attach Compendium DO Not Attach Compendium, Do Not Delete/merge, [id number] 10:49:35 CBC 2018 019 [facility], [address], [place], [address], 9 13:08:40 CMP, serum or plasma 2019 020 [facility], [address], [place], [address], 0 07:11:16 lipid panel, serum 2019 [facility], [address] [facility], [facility], [place], [address], 0 07:11:18 CBC 2019 [facility], [address] [facility], [facility] [address], [place], [address], 0 07:11:17 HbA1c (hemoglo bin A1c), blood 2019 [facility] In-Office Order, Internal Use Only DO Not Attach Compendium DO Not Attach Compendium, Do Not Delete/merge, [id number] 12:01:11 Referral ENT referral 2018 [facility] Not available 9 10:39:26 yoga referral 2018 ssander Not available 9 10:39:40 Procedures None recorded . Surgeries None recorded . Imaging XR, lumbar spine 2019 [facility] Scheduling, [address] [place], [address], 0 02:31:09 Medication Orders azithrom ycin 500 mg tablet 2019 [email or web address], [facility] [address] [place], [id number], 0 10:41:21 Guaifene sin AC 10 mg-100 mg/5 mL oral liquid 2019 INTERFACE [facility], [facility] [address] [place], [place], [id number], 0 14:47:32 lisinopr il 40 mg tablet 2019 INTERFACE [facility], [facility] [address] , [place], [place], [id number], 0 11:31:02 hydrocor tisone 2.5 % topical cream with perineal applicat or 2019 INTERFACE [facility], [facility] [address] [place], [place], [id number], 0 18:00:50 ibuprofe n 800 mg tablet 2019 INTERFACE [facility], [facility] [address] [place], [id number], 0 18:00:47 cycloben zaprine 10 mg tablet 2019 INTERFACE [facility], [facility] [address] [place], [place], [id number], 0 18:00:49 Patient TargetsNo targets recorded. Patient Instructions Encounter Date Encounter Id Patient Instructions Last Modified By Organization Details Last Modified Time 04/01/2019 [id number] type 2 diabetes: care instructions jnanney Not available 04/01/2019 10:26:15 body mass index: care instructions jnanney Not available 04/01/2019 10:25:16 learning about healthy weight jnanney Not available 04/01/2019 10:25:17 09/08/2019 [id number] bronchitis: care instructions jnanney Not available 09/08/2019 14:46:08 seasonal allergies: care instructions jnanney Not available 09/08/2019 14:46:09 03/09/2020 [id number] influenza (flu) vaccine: care instructions jnanney Not available 03/09/2020 11:26:53 learning about high blood pressure jnanney Not available 03/09/2020 11:30:28 type 2 diabetes: care instructions jnanney Not available 03/09/2020 11:26:53 03/29/2020 [id number] hemorrhoids: car e instructions jnanney Not available 03/29/2020 17:59:20 high cholesterol : care instructions jnanney Not available 03/29/2020 17:59:20 Reason for Referral ENT Referral for Tongue swel ling Referring Physician: Tabatha Hendrix [facility], Encounter Date: 02/23/2019 Yoga Referral for Body mass index 30+ - obesity Referring Physician: Tabatha Hendrix [facility], Encounter Date: 04/01/2019 Results Created Date Observation Date Name Description Value Unit Range Abnormal Flag Note LastModifiedBy Organization Detail LastModifiedTime 04/01/20 19 04/02/2019 CMP, serum or plasm a glucose 146 mg/dL 65-99 above high normal Not Available [facility] ([facility]) [address] [place], [address], 04/02/2019 13:08:39 04/01/2004/02/2019 CMP, serum or plasm a BUN 17 mg/dL 8-27 Not Available [facility] ([facility]) [address] [place], [address], 04/02/2019 13:08:39 04/01/20 19 04/02/2019 CMP, serum or plasm a creatinine 0.92 mg/dL 0.76-1 .27 Not Available [facility] ([facility]) [address] [place], [address], 04/02/2019 13:08:39 04/01/20 19 04/02/2019 CMP, serum or plasm a eGFR if nonafricn AM 89 mL/mi n/1.7 3 >59 Not Available [facility] ([facility]) [address] [place], [address], 04/02/2019 13:08:39 04/01/20 19 04/02/2019 CMP, serum or plasm a eGFR if africn AM 103 mL/mi n/1.7 3 >59 Not Available [facility] ([facility]) [address] [place], [address], 04/02/2019 13:08:39 04/01/20 19 04/02/2019 CMP, serum or plasm a BUN/creatini ne ratio 18 10-24 Not Available [facility] ([facility]) [address] [place], [address], 04/02/2019 13:08:39 04/01/20 19 04/02/2019 CMP, serum or plasm a sodium 143 mmol/ L 134-14 4 Not Available [facility] ([facility]) [address] [place], [address], 04/02/2019 13:08:39 04/01/2004/02/2019 CMP, serum or plasm a potassium 4.0 mmol/ L 3.5-5. 2 Not Available [facility] ([facility]) [address] [place], [address], 04/02/2019 13:08:39 04/01/2004/02/2019 CMP, serum or plasm a chloride 104 mmol/ L 96-106 Not Available [facility] ([facility]) [address] [place], [address], 04/02/2019 13:08:39 04/01/2004/02/2019 CMP, serum or plasm a carbon dioxide, total 21 mmol/ L 20-29 Not Available [facility] ([facility]) [address] [place], [address], 04/02/2019 13:08:39 04/01/2004/02/2019 CMP, serum or plasm a calcium 9.2 mg/dL 8.6-10 .2 Not Available [facility] ([facility]) [address] [place], [address], 04/02/2019 13:08:39 04/01/20 19 04/02/2019 CMP, serum or plasm a protein, total 6.4 g/dL 6.0-8. 5 Not Available [facility] ([facility]) [address] [place], [address], 04/02/2019 13:08:39 04/01/20 19 04/02/2019 CMP, serum or plasm a albumin 4.5 g/dL 3.6-4. 8 Not Available [facility] ([facility]) [address] [place], [address], 04/02/2019 13:08:39 04/01/20 19 04/02/2019 CMP, serum or plasm a globulin, total 1.9 g/dL 1.5-4. 5 Not Available [facility] ([facility]) [address] [place], [address], 04/02/2019 13:08:39 04/01/20 19 04/02/2019 CMP, serum or plasm a A/G ratio 2.4 1.2-2. 2 above high normal Not Available [facility] ([facility]) [address] [place], [address], 04/02/2019 13:08:39 04/01/20 19 04/02/2019 CMP, serum or plasm a bilirubin, total 0.4 mg/dL 0.0-1. 2 Not Available [facility] ([facility]) [address] [place], [address], 04/02/2019 13:08:39 04/01/20 19 04/02/2019 CMP, serum or plasm a alkaline phosphatase 77 IU/L 39-117 Not Available [facility] ([facility] [address] [place], [address], 04/02/2019 13:08:39 04/01/20 19 04/02/2019 CMP, serum or plasm a AST (SGOT) 14 IU/L 0-40 Not Available [facility] ([facility]) [address] [place], [address], 04/02/2019 13:08:39 04/01/20 19 04/02/2019 CMP, serum or plasm a ALT (SGPT) 17 IU/L 0-44 Not Available [facility] ([facility]) [address] [facility], [place], [address], 04/02/2019 13:08:39 04/01/20 19 04/02/2019 CBC WBC 6.0 x10e3 /uL 3.4-10 .8 Not Available [facility] ([facility]) [address] [facility], [place], [address], 04/02/2019 13:08:40 04/01/20 19 04/02/2019 CBC RBC 4.81 x10e6 /uL 4.14-5 .80 Not Available [facility] ([facility]) [address] [facility] [place], [address], 04/02/2019 13:08:40 04/01/20 19 04/02/2019 CBC hemoglobin 14.4 g/dL 13.0-1 7.7 Not Available [facility] ([facility]) [address] [place], [address], 04/02/2019 13:08:40 04/01/20 19 04/02/2019 CBC hematocrit 42.3 % 37.5-5 1.0 Not Available [facility] ([facility]) [address] [place], [address], 04/02/2019 13:08:40 04/01/20 19 04/02/2019 CBC MCV 88 fL 79-97 Not Available [facility] ([facility]) [address] [place], [address], 04/02/2019 13:08:40 04/01/20 19 04/02/2019 CBC MCH 29.9 pg 26.6-3 3.0 Not Available [facility] ([facility]) [address] [place], [address], 04/02/2019 13:08:40 04/01/20 19 04/02/2019 CBC MCHC 34.0 g/dL 31.5-3 5.7 Not Available [facility] ([facility]) [address] [facility] [place], [address], 04/02/2019 13:08:40 04/01/20 19 04/02/2019 CBC RDW 13.1 % 12.3-1 5.4 Not Available [facility] ([facility]) [address] [place], [address], 04/02/2019 13:08:40 04/01/20 19 04/02/2019 CBC platelets 214 x10e3 /uL 150-45 0 Not Available [facility] ([facility]) [address] [facility] [place], [address], 04/02/2019 13:08:40 04/01/20 19 04/02/2019 CBC NRBC [employer] Not Available [facility] ([facility]) [address] [facility] [place], [address], 04/02/2019 13:08:40 04/01/20 19 04/02/2019 lipid panel , serum cholesterol, total 216 mg/dL 100-19 9 above high normal Not Available [facility] ([facility]) [address] [facility] [place], [address], 04/02/2019 13:08:41 04/01/20 19 04/02/2019 lipid panel , serum triglyceride s 259 mg/dL 0-149 above high normal Not Available [facility] ([facility]) [address] [facility] [place], [address], 04/02/2019 13:08:41 04/01/2004/02/2019 lipid panel , serum HDL cholesterol 28 mg/dL >39 below low normal Not Available [facility] ([facility]) [address] [facility] [place], [address], 04/02/2019 13:08:41 04/01/20 19 04/02/2019 lipid panel , serum VLDL cholesterol audrey 52 mg/dL 5-40 above high normal Not Available [facility] ([facility]) [address] [facility] [place], [address], 04/02/2019 13:08:41 04/01/20 19 04/02/2019 lipid panel , serum LDL cholesterol calc 136 mg/dL 0-99 above high normal Not Available [facility] ([facility]) [address] [facility], [place], [address], 04/02/2019 13:08:41 04/01/20 19 04/02/2019 lipid panel , serum comment: [employer] Not Available [facility] ([facility]) [address] [facility], [place], [address], 04/02/2019 13:08:41 04/01/20 19 04/02/2019 PSA, serum or plasm a prostate specific Ag, serum 0.4 NG/mL 0.0-4. 0 Ino ECLIA metho dolog y. Accor ding to the Ameri can [employer] g[employer] iatio n, Serum PSA shoul d decre ase and remai n at undet ectab le level s after radic al prost atect spencer. The AUA defin es bioch emica l recur rence as an initi al PSA value 0.2 ng/mL or great er follo wed by a subse quent confi rmato ry PSA value 0.2 ng/mL or great er. Value s obtai rossana with diffe rent assay metho ds or kits canno t be used inter trivedi eably . Resul ts canno t be inter prete d as absol anam evide nce of the prese nce or absen ce of harriet saavedra se. Not Available [facility] ([facility]) [address] [facility], [place], [address], 04/02/2019 13:08:41 04/01/20 19 04/02/2019 PSA, serum or plasm a pdf . Not Available [facility] ([facility]) [address] [facility], [place], [address], 04/02/2019 13:08:41 04/01/20 19 04/02/2019 cardi ovasc ular asses sment panel , serum interpretati on Note Suppl ement al repor t is avail able. Not Available [facility] ([facility]) [address] [facility], [place], [address], 04/02/2019 13:08:42 04/01/20 19 04/02/2019 lester carlton panel , serum pdf image . Not Available [facility] ([facility]) [address] [facility], [place], [address], 04/02/2019 13:08:42 04/01/20 19 04/01/2019 HbA1c (hemo globi n A1c), blood HbA1c 5.7 Not Available In-Office Order Internal Use Only DO Not Attach Compendium DO Not Attach Compendium, Do Not Delete/merge, [id number] 04/01/2019 10:25:35 03/09/2003/10/2020 CMP, serum or plasm a glucose 83 mg/dL 65-99 Not Available [facility] ([facility]) [address] [facility], [place], [address], 03/10/2020 07:11:16 03/09/2003/10/2020 CMP, serum or plasm a BUN 16 mg/dL 8-27 Not Available [facility] ([facility]) [address] [facility], [place], [address], 03/10/2020 07:11:16 03/09/2003/10/2020 CMP, serum or plasm a creatinine 0.89 mg/dL 0.76-1 .27 Not Available [facility] ([facility]) [address] [facility], [place], [address], 03/10/2020 07:11:16 03/09/2003/10/2020 CMP, serum or plasm a eGFR if nonafricn AM 92 mL/mi n/1.7 3 >59 Not Available [facility] ([facility]) [address] [facility], [place], [address], 03/10/2020 07:11:16 03/09/2003/10/2020 CMP, serum or plasm a eGFR if africn AM 106 mL/mi n/1.7 3 >59 Not Available [facility] ([facility]) [address] [place], [address], 03/10/2020 07:11:16 03/09/2003/10/2020 CMP, serum or plasm a BUN/creatini ne ratio 18 10-24 Not Available [facility] ([facility]) [address] [place], [address], 03/10/2020 07:11:16 03/09/2003/10/2020 CMP, serum or plasm a sodium 142 mmol/ L 134-14 4 Not Available [facility] ([facility]) [address] [place], [address], 03/10/2020 07:11:16 03/09/2003/10/2020 CMP, serum or plasm a potassium 4.5 mmol/ L 3.5-5. 2 Not Available [facility] ([facility]) [address] [place], [address], 03/10/2020 07:11:16 03/09/2003/10/2020 CMP, serum or plasm a chloride 106 mmol/ L 96-106 Not Available [facility] ([facility]) [address] [place], [address], 03/10/2020 07:11:16 03/09/2003/10/2020 CMP, serum or plasm a carbon dioxide, total 25 mmol/ L Not Available [facility] ([facility]) [address] [place], [address], 03/10/2020 07:11:16 03/09/2003/10/2020 CMP, serum or plasm a calcium 9.2 mg/dL 8.6-10 .2 Not Available [facility] ([facility]) [address] [place], [address], 03/10/2020 07:11:16 03/09/20 20 03/10/2020 CMP, serum or plasm a protein, total 6.7 g/dL 6.0-8. 5 Not Available [facility] ([facility]) [address] [place], [address], 03/10/2020 07:11:16 03/09/20 20 03/10/2020 CMP, serum or plasm a albumin 4.5 g/dL 3.8-4. 8 Not Available [facility] ([facility]) [address] [place], [address], 03/10/2020 07:11:16 03/09/2003/10/2020 CMP, serum or plasm a globulin, total 2.2 g/dL 1.5-4. 5 Not Available [facility] ([facility]) [address] [place], [address], 03/10/2020 07:11:16 03/09/2003/10/2020 CMP, serum or plasm a A/G ratio 2.0 1.2-2. 2 Not Available [facility] ([facility]) [address] [place], [address], 03/10/2020 07:11:16 03/09/20 20 03/10/2020 CMP, serum or plasm a bilirubin, total 0.3 mg/dL 0.0-1. 2 Not Available [facility] ([facility]) [address] [place], [address], 03/10/2020 07:11:16 03/09/2003/10/2020 CMP, serum or plasm a alkaline phosphatase 79 IU/L 39-117 Not Available [facility] ([facility]) [address] [place], [address], 03/10/2020 07:11:16 03/09/20 20 03/10/2020 CMP, serum or plasm a AST (SGOT) 11 IU/L 0-40 Not Available [facility] ([facility]) [address] [facility], [place], [address], 03/10/2020 07:11:16 03/09/2003/10/2020 CMP, serum or plasm a ALT (SGPT) 16 IU/L 0-44 Not Available [facility] ([facility]) [address] [facility], [place], [address], 03/10/2020 07:11:16 03/09/2003/10/2020 CBC WBC 7.5 x10e3 /uL 3.4-10 .8 Not Available [facility] ([facility]) [address] [facility], [place], [address], 03/10/2020 07:11:17 03/09/2003/10/2020 CBC RBC 4.74 x10e6 /uL 4.14-5 .80 Not Available [facility] ([facility]) [address] [facility], [place], [address], 03/10/2020 07:11:17 03/09/2003/10/2020 CBC hemoglobin 14.6 g/dL 13.0-1 7.7 Not Available [facility] ([facility]) [address] [facility], [place], [address], 03/10/2020 07:11:17 03/09/2003/10/2020 CBC hematocrit 41.3 % 37.5-5 1.0 Not Available [facility] ([facility]) [address] [facility], [place], [address], 03/10/2020 07:11:17 03/09/2003/10/2020 CBC MCV 87 fL 79-97 Not Available [facility] ([facility]) [address] [facility], [place], [address], 03/10/2020 07:11:17 03/09/2003/10/2020 CBC MCH 30.8 pg 26.6-3 3.0 Not Available [facility] ([facility]) [address] [place], [address], 03/10/2020 07:11:17 03/09/2003/10/2020 CBC MCHC 35.4 g/dL 31.5-3 5.7 Not Available [facility] ([facility]) [address] [place], [address], 03/10/2020 07:11:17 03/09/2003/10/2020 CBC RDW 12.2 % 11.6-1 5.4 Not Available [facility] ([facility]) [address] [facility] [place], [address], 03/10/2020 07:11:17 03/09/2003/10/2020 CBC platelets 216 x10e3 /uL 150-45 0 Not Available [facility] ([facility]) [address] [facility] [place], [address], 03/10/2020 07:11:17 03/09/2003/10/2020 CBC NRBC [employer] Not Available [facility] ([facility]) [address] [facility] [place], [address], 03/10/2020 07:11:17 03/09/2003/10/2020 lipid panel , serum cholesterol, total 210 mg/dL 100-19 9 above high normal Not Available [facility] ([facility]) [address] [facility] [place], [address], 03/10/2020 07:11:18 03/09/2003/10/2020 lipid panel , serum triglyceride s 256 mg/dL 0-149 above high normal Not Available [facility] ([facility]) [address] [facility] [place], [address], 03/10/2020 07:11:18 03/09/20 20 03/10/2020 lipid panel , serum HDL cholesterol 31 mg/dL >39 below low normal Not Available [facility] ([facility]) [address] [place], [address], 03/10/2020 07:11:18 03/09/20 20 03/10/2020 lipid panel , serum VLDL cholesterol audrey 46 mg/dL 5-40 above high normal Not Available [facility] ([facility]) [address], [place], [address], 03/10/2020 07:11:18 03/09/2003/10/2020 lipid panel , serum LDL chol calc ([facility]) 133 mg/dL 0-99 above high normal Not Available [facility] ([facility]) [address], [place], [address], 03/10/2020 07:11:18 03/09/2003/10/2020 lipid panel , serum comment: [employer] Not Available [facility] ([facility]) [address] [facility], [place], [address], 03/10/2020 07:11:18 03/09/2003/10/2020 cardi ovasc ular asses sment panel , serum interpretati on Note Suppl ement al repor t is avail able. Not Available [facility] ([facility]) [address] [facility], [place], [address], 03/10/2020 07:11:18 03/09/2003/10/2020 cardi ovasc ular asses sment panel , serum pdf . Not Available [facility] ([facility]) [address] [facility], [place], [address], 03/10/2020 07:11:18 03/09/2003/09/2020 HbA1c (hemo globi n A1c), blood HbA1c 5.6 Not Available In-Office Order Internal Use Only DO Not Attach Compendium DO Not Attach Compendium, Do Not Delete/merge, [id number] 03/09/2020 11:25:26 03/18/20 19 03/18/2019 elect aldair march am [facility] observ [facility]ion [facility] [address] [place], [address], 03/20/2019 16:18:14 03/19/20 19 03/17/2019 XR, chest , 2 view No observ ation record ed. jnanney Not Available 2018 11:30:23 04/04/20 20 04/01/2020 XR, lumba r spine No observ ation record ed. [facility] (Radiology) [address] [place], [address], 04/05/2020 09:51:04 Result Notes None recorded. Problems Name Problem SNOMED Code Status Onset Date Resolution Date Notes Provider Name and Address Organization Details Recorded Time Prediabetes 159789020 Completed 201809/16/2018 Tabatha Hendrix PA-C Attn: Maxi param,[address] [facility], [place], [address], [place] [facility] 9 14:59:09 Patient encounter status 922566628 Active 2018 Maritza Kilgore MA null, [place] [facility] 0 14:37:58 Dysphagia 70594713 Active 2018 Maritza Kilgore [place], [place] [facility] 0 17:47:28 Asthma 931132117 Active Maritza Kilgore [place], [place] [facility] 0 17:47:28 Acute bronchitis 94871057 Active Maritza Kilgore [place], [place] [facility] 0 17:47:28 Hyperlipide sonya 31277311 Active Maritza Kilgore [place], [place] [facility] 0 17:47:28 Diabetes mellitus 70911298 Active Maritza Kilgore [place] null, [place] [facility] 0 17:47:28 Problem Notes None recorded. Procedures Surgical History Date Name Laterality Status Provider Name and Address Organization Details Recorded Time 9 colonoscopy completed Juana Batres MA [place] - [facility] 11/26/2018 10:14:23 Imaging Results Imaging Date Name Status LastModified by Organization Details LastModified Time 03/18/2019 [email or web address] [address] [place], [address], 03/20/2019 16:18:14 03/17/2019 XR, chest, 2 view completed [email or web address] Informa tion not available 03/19/2019 11:30:23 04/01/2020 XR, lumbar spine completed [facility] (Radiology) [address] [place], [address], 04/05/2020 09:51:04 Procedure Notes None recorded. Medical Equipment None Reported. Allergies No known drug allergies Medications Name Sig Start Date Stop Date Status Note LastModified by Organization Details LastModified Time cyclobenzap rine 10 mg tablet Take 1 tablet 3 times a day by oral route as needed for 30 days. 2019 active Not Available Not Available Not Avai lable metformin 500 mg tablet TAKE ONE TABLET BY MOUTH TWICE A DAY active Not Available Not Available No t Available ibuprofen 800 mg tablet Take 1 tablet 3 times a day by oral route for 30 days. active Not Available Not Available No t Available lisinopril 20 mg tablet TAKE ONE TABLET BY MOUTH DAILY 03/29 completed Not Available Not Available Not Available omeprazole 40 mg capsule,del ayed release TAKE ONE CAPSULE BY MOUTH DAILY active Not Available Not Available No t Available Depo-Medrol 80 mg/mL suspension for injection Take 1 mL by injection route. 09/06 completed Not Available Not Available Not Available hydrocortis one 2.5 % topical cream with perineal applicator APPLY A THIN LAYER TO THE AFFECTED AREA(S) BY TOPICAL ROUTE 2-4 TIMESDAIL Y active Not Available Not Available No t Available doxycycline monohydrate 50 mg capsule 03/13 completed Not Available Not Available Not Available ceftriaxone 1 gram solution for injection Take 1 g by injection route. 09/06 completed Not Available Not Available Not Available cephalexin 500 mg capsule 06/03 completed Not Available Not Available Not Available simvastatin 20 mg tablet TAKE ONE TABLET BY MOUTH DAILY active Not Available Not Available No t Available Cipro 500 mg tablet Take 1 tablet every 12 hours by oral route for 10 days. 10/17 completed Not Available Not Available Not Available montelukast 10 mg tablet TAKE ONE TABLET BY MOUTH DAILY active Not Available Not Available No t Available diclofenac sodium 50 mg tablet,prachi yed release 03/13 completed Not Available Not Available Not Available Aspir-81 mg tablet,prachi yed release Take 1 tablet every day by oral route. active Not Available Not Available No t Available methylpredn isolone 4 mg tablets in a dose pack active Not Available Not Available Not Available lisinopril 40 mg tablet Take 1 tablet every day by oral route for 90 days. 2019 active Not Available Not Available Not Avai lable naproxen 500 mg tablet Take 1 tablet twice a day by oral route for 30 days. active Not Available Not Available No t Available Microlet Lancet TEST TWICE DAILY 2017 active Not Available Not Available Not Avai lable neomycin-po lymyxin-hyd rocort 3.5 mg-10,000 unit/mL-1 % ear drops,susp 03/13 completed Not Available Not Available Not Available azithromyci n 500 mg tablet Take 1 tablet every day by oral route for 3 days. 03/09 completed Not Available Not Available Not Available chlorhexidi ne gluconate 0.12 % mouthwash 03/13 completed Not Available Not Available Not Available Vimovo 500 mg-20 mg tablet,imme diate and delay release Take 1 tablet twice a day by oral route. 09/16 completed Not Available Not Available Not Available Contour Next Test Strips USE FOR TESTING TWICE DAILY 2017 active Not Available Not Available Not Avai lable Virtussin AC 10 mg-100 mg/5 mL oral liquid Take 10 mL every 4 hours by oral route. active Not Available Not Available No t Available Asmanex HFA 200 mcg/actuati on aerosol inhaler Inhale 2 puffs twice a day by inhalatio n route for 30 days. 03/13 completed Not Available Not Available Not Available Qvar RediHaler 40 mcg/actuati on HFA breath activated aerosol Inhale 2 puffs twice a day by inhalatio n route for 30 days. active Not Available Not Available No t Available Vitals Date Recorded Body height Provider Name an d Address Organization Details Last Updated DateTime 02/23/2019 187.96 cm Sophia Iraheta MA [facility] 02/23/2019 12:21:00 Date Recorded Body mass index (BMI) Body weight Provider Name and Address Organization Details Last Updated DateTime 02/23/2019 38.1 kg/m2 012566.93 g Sophia Iraheta MA [facility] 02/23/2019 12:22:17 Date Recorded Oxygen saturation Oxygen saturation in Arterial blood by Pulse oximetry Provider Name and Address Organization Details Last Updated DateTime 02/23/2019 93 % 93 % Sophia Iraheta MA [facility] 02/23/2019 12:25:49 Date Recorded Heart rate Provider Name an d Address Organization Details Last Updated DateTime 02/23/2019 84 /min Sophia Iraheta MA [facility] 02/10 12:25:51 Date Recorded Body height Provider Name an d Address Organization Details Last Updated DateTime 04/01/2019 187.96 cm Sophia Iraheta MA [facility] 04/01/2019 10:00:41 Date Recorded Body mass index (BMI) Body weight Provider Name and Address Organization Details Last Updated DateTime 04/01/2019 37.8 kg/m2 400557.61 g Sophia Iraheta [facility] 04/01/2019 10:06:17 Date Recorded Oxygen saturation Oxygen saturation in Arterial blood by Pulse oximetry Provider Name and Address Organization Details Last Updated DateTime 04/01/2019 98 % 98 % Sophia Iraheta MA [facility] 04/01/2019 10:08:26 Date Recorded Heart rate Provider Name an d Address Organization Details Last Updated DateTime 04/01/2019 84 /min Sophia Iraheta MA [facility] 03/14 10:08:29 Date Recorded Body height Provider Name an d Address Organization Details Last Updated DateTime 03/09/2020 187.96 cm Julianne Jaime MA [facility] 2019 10:41:09 Date Recorded Body mass index (BMI) Body weight Provider Name and Address Organization Details Last Updated DateTime 03/09/2020 36.6 kg/m2 282754.83 g Julianne Jaime MA [facility] 03/09/2020 10:42:40 Date Recorded Body temperature Provider Name a nd Address Organization Details Last Updated DateTime 03/09/2020 98.1 [degF] Julianne Jaime MA [facility] 03/09/2020 10:45:12 Date Recorded Oxygen saturation Oxygen saturation in Arterial blood by Pulse oximetry Provider Name and Address Organization Details Last Updated DateTime 03/09/2020 96 % 96 % Julianne Jaime MA [facility] 03/09/2020 10:45:24 Date Recorded Heart rate Provider Name an d Address Organization Details Last Updated DateTime 03/09/2020 85 /min Julianne Jaime MA [facility] 2019 10:45:27 Date Recorded Systolic blood pressure Diastolic blood pressure Provider Name and Address Organization Details Last Updated DateTime 02/23/2019 152 mm[Hg] 100 mm[Hg] Sophia Iraheta MA [facility] 02/23/2019 12:25:29 Date Recorded Systolic blood pressure Diastolic blood pressure Provider Name and Address Organization Details Last Updated DateTime 04/01/2019 176 mm[Hg] 84 mm[Hg] Sophia Iraheta MA [facility] 04/01/2019 10:08:03 Date Recorded Systolic blood pressure Diastolic blood pressure Provider Name and Address Organization Details Last Updated DateTime 03/09/2020 148 mm[Hg] 90 mm[Hg] Julianne Jaime MA [facility] 03/09/2020 10:46:36 Date Recorded Systolic blood pressure Diastolic blood pressure Provider Name and Address Organization Details Last Updated DateTime 03/09/2020 142 mm[Hg] 82 mm[Hg] Tabatha Hendrix PA-C Attn: Accounting[address] [place], [address], [facility] 03/09/2020 11:05:42 Social History Question Answer Notes LastModified by Organizat ion Details LastModified Time Tobacco Smoking Status Former Smoker Quit 25 years ago Bertha Horton MA null, [facility] 05/27/2015 17:41:33 What Is Your Level Of Alcohol Consumption? Occasional Information not available 03/09/2020 What Is Your Level Of Caffeine Consumption? Occasional Information not available 03/09/2020 How Much Tobacco Do You Chew? None Information not available 03/09/2020 What Type Of Diet Are You Following? REGULAR Information not available 03/09/2020 Do You Or Have You Ever Used E-cigarettes Or Vape? 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 03/29/2020 Information not available 03/29/2020 Do You Or Have You Ever Used Smokeless Tobacco? Never Used Smokeless Tobacco Information not available 03/09/2020 How Much Tobacco Do You Smoke? No Information not available 09/16/2018 General Stress Level Medium Information not available 03/29/2020 Has Tobacco Cessation Counseling Been Provided? No Information not available 09/16/2018 On What Date Was Tobacco Cessation Counseling Provided? 03/29/2020 Sdevriesma Answered No To The Tobacco Cessation Counseling Provided Question On 09/16/2018. Information not available 03/29/2020 How Many Years Have You Smoked Tobacco? 25 Information not available 09/16/2018 Sex: Unknown Functional Status None recorded. Mental Status None recorded. Family History Relationship Description Onset Age of this Age Resolved Age Notes LastModified by Organization Details LastModified Time Mother Diabetes mellitus [email or web address] Not available 11/2015 16:22:38 Mother Malignant tumor of ovary [email or web address] Not available 11/2015 16:22:38 Medical History Condition Response Hyperlipidemia Y Cancer Y Asthma Y Immunizations Vaccine Type Date Status Note Provider Nam e and Address Organization Details Recorded Time COVID-19, mRNA, LNP-S, PF, 100 mcg/0.5mL dose or 50 mcg/0.25mL dose 1 completed Not Available [facility] 07/10/2021 15:17:05 COVID-19, mRNA, LNP-S, PF, 100 mcg/0.5mL dose or 50 mcg/0.25mL dose 1 completed Not Available [facility] 07/10/2021 15:17:05 Influenza, split virus, quadrivalent, preservative 0 completed Julianne Jaime MA null, [place] [facility] 03/09/2020 11:49:44 Past Encounters Encounter ID Performer Location Encounter Start Date Encounter Closed Date Diagnosis/Indication Diagnosis SNOMED-CT Code Diagnosis ICD10 Code Diagnosis Note [id number] [facility] [address] [place] [address] 05/27/2015 17:23:25 05/27/2015 17:41:26 Asthma 596051935 J45.909 [id number] Tabatha Hendrix PA-C [facility] [address] [place] [address] 06/03/2015 10:33:36 06/03/2015 11:18:08 Asthma 618562210 J45.909 Acute bronchitis 7835084 2 J20.9 [id number] Tabatha Hendrix PA-C [facility] [address] [place] [address] 10/18/2015 16:13:58 10/18/2015 16:59:30 Asthma 960743743 J45.909 Adult heal th examination 305810716 Z00.00 [id number] [facility] [address] [place] [address] 10/19/2015 09:53:58 10/19/2015 10:31:57 Adult health examination 186856981 Z00.00 [id number] Tabatha Hendrix PA-C [facility] [address] [place] [address] 10/26/2015 10:03:46 10/26/2015 11:06:48 Hyperlipidemia 22845000 E78.5 Diabetes mellitus 099246 09 E11.9 [id number] Tabatha Hendrix PA-C [facility] [address] [place] [address] 05/15/2016 13:44:06 05/15/2016 16:20:36 Acute bacterial sinusitis 19442362 J01.01 Asthma 335922313 J45.90 9 [id number] Tabatha Hendrix PA-C [facility] [address] [place] [address] 09/06/2016 10:42:33 09/06/2016 13:30:11 Diabetes mellitus 89556626 E11.9 Essential hypertension 60958199 I10 Hyperlipidemia 99937844 E78.5 Asthma 158331383 J45.90 9 [id number] Tabatha Hendrix PA-C [facility] [address] [place] [address] 09/14/2016 09:55:30 09/14/2016 11:12:05 Essential hypertension 57345034 I10 Hypertriglyceridemia 302 626720 E78.1 Gastroesop hageal reflux disease 085369919 K21.9 Hyperlipidemia 93218760 E78.5 [id number] DAV[facility] [address] [place] [address] 03/18/2017 10:19:28 03/18/2017 15:23:55 Hyperlipidemia 25501929 E78.5 Moderate p ersistent asthma 433376352 J45.40 Screening for malignant neoplasm of colon 056241577 Z12.11 [id number] Tabatha Hendrix PA-C [facility] [address] [place] [address] 03/26/2017 10:26:35 03/26/2017 10:55:07 Diabetes mellitus 55258734 E11.9 [id number] Tabatha Hendrix PA-C [facility] [address] [place] [address] 06/14/2017 09:52:24 06/14/2017 13:01:38 Asthma 975680256 J45.20 Moderate p ersistent asthma 134563898 J45.40 Diabetes mellitus 282737 09 E11.9 Hyperlipidemia 26118477 E78.5 Gastroesop hageal reflux disease without esophagitis 074468431 K21.9 Dyspnea on exertion 6084 5006 R06.09 [id number] Sophia Iraheta MA [facility] [address] [place] [address] 03/13/2018 11:39:45 03/13/2018 13:45:55 Essential hypertension 28528144 I10 Screening for malignant neoplasm of colon 669478759 Z12.11 Abnormal weight 15866222 R63.5 [id number] Tabatha Hendrix PA-C [facility] [address] [place] [address] 09/16/2018 14:04:23 09/16/2018 15:48:11 Asthma 876245870 J45.20 Hyperlipidemia 89973336 E78.5 Diabetes mellitus 369495 09 E11.9 Mild inter mittent asthma 391742012 J45.20 [id number] Tabatha Hendrix PA-C [facility] [address] [place] [address] 09/23/2018 10:40:32 09/23/2018 12:03:05 Mixed hyperlipidemia 748633421 E78.2 Type 2 eligio betes mellitus without complication 613204807 E11.9 [id number] Tabatha Hendrix PA-C [facility] [address] [place] [address] 01/05/2019 11:25:14 01/06/2019 14:45:54 Esophageal dysphagia 29879755 R13.19 [id number] Tabatha Hendrix PA-C [facility] [address] [place] [address] 02/23/2019 11:45:46 02/23/2019 13:40:28 Tongue swelling 118768682 R22.0 [id number] Tabatha Hendrix PA-C [facility] [address] [place] [address] 04/01/2019 09:54:51 04/02/2019 15:03:15 Body mass index 30+ - obesity 740170815 Z68.37 Type 2 eligio betes mellitus without complication 702592434 E11.9 Screening for malignant neoplasm of prostate 498581800 Z12.5 [id number] Tabatha Hendrix PA-C [facility] [address] [place] [address] 09/08/2019 12:27:07 09/09/2019 03:29:45 Seasonal allergic rhinitis 238356407 J30.2 Acute bronchitis 1963722 2 J20.8 [id number] Julianne Jaime MA [facility] [address] [place] [address] 03/09/2020 10:34:23 03/10/2020 15:35:54 Type 2 diabetes mellitus without complication 885354894 E11.9 Administra tion of influenza vaccine 13354991 Z23 Essential hypertension 68457560 I10 [id number] Tabatha Hendrix PA-C [facility] [address] [place] [address] 03/29/2020 10:38:35 03/29/2020 18:10:44 External hemorrhoids 88832875 K64.4 Diabetes mellitus 807191 09 E11.9 Hyperlipidemia 70892492 E78.2 Spasm of m uscle of lower back 0150068148 3274346 M62.830 Health Concerns Section Related Observation LastModified by Organization Detai ls LastModified Time None Recorded Concern Status LastModified by Organization Details LastModified Time None Recorded Advance Directives Directive None Recorded Payers Encounter Date Sequence Insurance Name Policy Number Policy Larry Covered Member ID Larry Member ID Guarantor Name 02/23/2019 1 [place] [id number] Leydi Brina [id number] Isma Brina 04/01/2019 1 [place] [id number] Leydi Brina [id number] Isma Brina 09/08/2019 1 [facility] [id number] Isma Brina [id number] Isma Brina 03/09/2020 1 [facility] [id number] Isma Brina [id number] Isma Brina 03/29/2020 1 [facility] [id number] Isma Brina [id number] Isma Brina Notes Date Note Type Note Provider Name and Address Organization Details Recorded Time 02/23/2019 text/html has taken a drug combining ibuprophen and famotidine and has a problem with his tongue swelling..benadryl helped..denies rash.. Tabatha Hendrix PA-C Attn: Accounting[address] [place], [address], [facility] 02/23/2019 12:46:07 04/01/2019 text/html s/p surgery on tongue..needs labs..hx of diabetes Tabatha Hendrix PA-C Attn: Accounting[address] [place], [address], [facility] 04/01/2019 10:28:54 09/08/2019 text/html 3 weeks itchy ey es and sneezing...got some pseudophed with allergy meds... Tabatha Hendrix PA-C Attn: Accounting[address] , [place], [address], [facility] 09/08/2019 14:48:26 03/09/2020 text/html Isma Gonsalves is a 60 y/o male who has a PMHx of DM, HLD, HTN, GERD who presents to clinic routine check up and lab work. Patient will be without insurance in approximately 2 months and would like to have a full work up performed prior to insurance expiring. He reports his was recently diagnosed with multiple sclerosis and this has caused increased stressors in his life. 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 Patient notes he has not been checking his sugars at home. He reports over the past 2 months he has been waking up with a frontal, dull BORGES that eventually dissipates as the day goes on. HAs are not occurring every day. Patient has not been taking any medication for his HAs. He does not have a history of headaches. Denies visual changes, nausea, vomiting, ear pain, dizziness. He notes his mood has been mostly okay with a slight increase in his irritability. He states that his diet has been okay ; trying to stay away from fried foods and bread. Patient reports his sleep has been good. He is tolerating all of his medications well with no complications. Denies urinary sxs, changes to his bowel patterns, chest pain, SOB, memory changes. Julianne Jaime MA [facility] [place] [facility] 03/09/2020 11:51:09 03/29/2020 text/html has a external h em with some bleeding...can feel it hanging...also has a pain shooting down back and wants a mri...was splitting wood... Tabatha Hendrix PA-C Attn: Accounting,[address] , [place], [address], [facility] 03/29/2020 18:01:50
--- OUTSIDE RECORDS SUMMARY | 2024-06-04 21:11 | XMS_ITS | Encounter Summary ---
Author Organization [facility] Health Address [address] [place] [address] Care Team Providers Care Petroleum Transport Driver Name Role Phone Unavailable Primary Care Provider Unavailabl e Encounter Details Date Type Department Care Team (Late st Contact Info) Description 10/27/2020 Lab Requisition [facility] [address] [place] [address] Narayan Marti Jr., MD [address] [place] [address] Social History Tobacco Use Types Packs/Day Years Used Date Smoking Tobacco: Never Assessed Sex and Gender Information Value Date Recorded Sex Assigned at Not on file Gender Identity Not on file Sexual Orientation Not on file documented as of this encounter Plan of Treatment Not on file documented as of this encounter Procedures Procedure Name Priority Date/Time Associated Diagnosis Comments DERMATOPATHOLOGY Routine 10/26/2020 3:33 AM CDT documented in this encounter Results * DERMATOPATHOLOGY (10/26/2020 3:33 AM CDT) Case Report Dermatopathology Report ? Case: [id number] ? Authorizing Provider: ??Narayan Marti Jr., MD ??Collected: ? 10/26/2020 03:33 AM ? Ordering Location: ? [facility] ?Received: ?10/27/2020 08:03 AM ? Pathologist: ? Jana Soni MD ? Specimens: ?? A) - Skin, right posterior neck ? B) - Skin, right posterior shoulder ? 12:21 PM CDT DERMATOPATHOLOGY LABORATORY Final Diagnosis Specimen A. SKIN, right posterior neck: BASAL CELL CARCINOMA, NODULAR TYPE (C44.41) Specimen B. SKIN, right posterior shoulder: LICHEN PLANUS-LIKE KERATOSIS (BENIGN LICHENOID KERATOSIS) (L82.1) 12:21 PM T DERMATOPATHOLOGY LABORATORY Clinical History A-B: Basal cell carcinoma vs irritated seborrheic keratosis vs folliculitis. . 12:21 PM CDT DERMATOPATHOLOGY LABORATORY Gross Description Specimen A: Received is one formalin filled container labeled with the patient's name and designated right posterior neck. The specimen consists of a shave biopsy measuring [id number]. Jar 0. Specimen B: Received is one formalin filled container labeled with the patient's name and designated right posterior shoulder. The specimen consists of a shave biopsy measuring [id number]. Jar 0. 12:21 PM CDT DERMATOPATHOLOGY LABORATORY Microscopic Description Specimen A. SKIN, right posterior neck: Within the dermis there are aggregates of basaloid cells with a high nuclear to cytoplasmic ratio and peripheral palisading. Specimen B. SKIN, right posterior shoulder: The epidermis is mildly acanthotic. There is a lichenoid infiltrate with vacuolar changes of basilar keratinocytes and scattered necrotic keratinocytes. 12:21 PM CDT DERMATOPATHOLOGY LABORATORY Disclaimer An external and internal positive and negative controls are appropriate for the histochemical, immunohistochemical and immunofluorescence stain(s) in this case (if any), except where stated explicitly. The performance characteristics of the stain(s) cited in this report were developed and its performance characteristic determined by the Dermatopathology Laboratory at [facility], directed by Dr. Tami Abreu. These tests need not be, and therefore are not, approved by the [place] Food and Drug Administration. The tests are used for clinical purposes. Billing Codes Specimen Charges Stain Charges 33556 31402 1 1 1 12:21 PM CDT DERMATOPATHOLOGY LABORATORY Embedded Images 12:21 PM CDT DERMATOPATHOLOGY LABORATORY Pathology/Cytology TISSUE SPECIMEN FROM SKIN / Unknown 10/26/2020 3:33 AM CDT 10/27/2020 8:03 AM CDT Miscellaneous samples (specimen) TISSUE SPECIMEN FROM SKIN / Unknown 10/26/2020 3:33 AM CDT 10/27/2020 8:03 AM CDT Narayan Marti Jr., MD LAB - PATHOLOGY /CYTOLOGY ORDERABLES DERMATOPATHOLOGY LABORATORY [facility] - Department of Dermatology [address], [address] [phone] documented in this encounter Visit Diagnoses Not on filedocumented in this encounter
--- OUTSIDE RECORDS SUMMARY | 2024-06-04 21:11 | XMS_ITS | Clinical Summary ---
Author Organization [facility] Address [address] [place] [address] Care Team Providers Care Senior Computer Specialist Name Role Phone Unavailable Primary Care Provider Unavailabl e Source Comments [facility],non-owned Affiliates and Associated Physician Practices is amultiple site organization consisting of ambulatory clinics and hospital sitesin [place], [place], [place] and [place]. This disclosure is being madepursuant to the Care Everywhere program and may not contain all information available regarding this patient. Last updated 18.[facility] Social History Tobacco Use Types Packs/Day Years Used Date Smoking Tobacco: Never Assessed Sex and Gender Information Value Date Recorded Sex Assigned at Not on file Gender Identity Not on file Sexual Orientation Not on file Plan of Treatment Health Maintenance Due Date Last Done Comments COLOGUARD (AGES 45-75) - COL ON CA SCREENING 1958 COLON MONITORING 1958 COLONOSCOPY - COLON CA SCREENING 1958 CT COLONOGRAPHY - COLON CA SCREENING 1958 Colorectal Cancer Screening 1958 FIT - COLON CA SCREENING 1958 FLEX SIG - COLON CA SCREENING 1958 LIPID TESTING 1958 HEPATITIS C SCREENING 01/11/1976 DTAP/TDAP/TD VACCINES (1 - Tdap) 1977 PNEUMOCOCCAL VACCINE 50+ (1 of 1 - PCV) 01/16/2008 ZOSTER VACCINE (1 of 2) 01/16/2008 COVID-19 VACCINE ( - 2023-2 5 season) 2024 INFLUENZA VACCINE (#1) 2024 DEPRESSION SCREENING 05/13/2024 Respiratory Syncytial Virus (RSV) Vaccine Pt: or over 60 yrs (1 - 1-dose 75+ series) 2033 HEPATITIS B VACCINE Aged Out No longe r eligible based on patient's age to complete this topic HIB VACCINE Aged Out No longer eligi ble based on patient's age to complete this topic HPV VACCINE Aged Out No longer eligi ble based on patient's age to complete this topic MENINGOCOCCAL (Group B) VACCINE Aged Out No longer eligible based on patient's age to complete this topic MENINGOCOCCAL VACCINE Aged Out No gabbi nina eligible based on patient's age to complete this topic
--- OUTSIDE RECORDS SUMMARY | 2024-06-04 21:11 | XMS_ITS | Clinical Summary ---
Author Organization [facility] Address [address] [place] [address] Phone Care Team Providers Care Stair Builder Name Role Phone Alexey Hendrix Primary Care Provider [phone] Allergies No known active allergies Medications IBUPROFEN PO Take by mouth. Ac tive SIMVASTATIN PO Take 20 mg by mouth daily. Active METFORMIN HCL PO Take 500 mg by mouth 2 times daily. Active MONTELUKAST SODIUM PO Take 10 mg by mouth daily. Active OMEPRAZOLE PO Take 40 mg by mouth daily. Active Mometasone Furoate (ASMANEX 120 METERED DOSES IN) take by inhalation. Active Aspirin 81 MG Tablet Aspir-81 mg tablet,delayed release Take 1 tablet every day by oral route. Active Glucose Blood (CONTOUR NEXT TEST) Strip Contour Next Test Strips USE FOR TESTING TWICE DAILY Active MICROLET LANCETS Misc Microlet Lancet TEST TWICE DAILY Active Beclomethasone Diprop HFA (QVAR REDIHALER) 40 MCG/ACT AEROSOL, BREATH ACTIVATED 2 Puffs 2 times daily as needed. Active lisinopril (PRINIVIL, ZESTRIL) 20 MG Tablet lisinopril 20 mg tablet TAKE ONE TABLET BY MOUTH EVERY DAY 9 Active Active Problems Problem Noted Date Diagnosed Date Tongue lesion 03/26/2019 Family History Medical History Relation Name Comments Cancer Mother Relation Name Status Comments Father Mother Social History Tobacco Use Types Packs/Day Years Used Date Smoking Tobacco: Former Cigarettes 2 10 1 05/16/1977 - 03/16/1988 Smokeless Tobacco: Never Alcohol Use Standard Drinks/Week Comments Yes 0 (1 standard drink = 0.6 oz pur e alcohol) RARELY AUDIT-C Answer Date Recorded Frequency of Alcohol Consumption Monthly or less 03/02/2019 Average Number of Drinks Not on file 019 Frequency of Binge Drinking Not on file 02/11 Sex and Gender Information Value Date Recorded Sex Assigned at Not on file Legal Sex Male 9:46 AM DIRECTOR OF ANALYTICS Gender Identity Not on file Sexual Orientation Not on file Last Filed Vital Signs Vital Sign Reading Time Taken Comments Blood Pressure 132/88 04/03/2019 10:11 AM DIRECTOR OF ANALYTICS Pulse 88 04/03/2019 10:11 AM DIRECTOR OF ANALYTICS Temperature 36.1 ??C (97 ??F) 04/03/2019 10:11 AM DIRECTOR OF ANALYTICS Respiratory Rate 20 04/03/2019 10:11 AM DIRECTOR OF ANALYTICS Oxygen Saturation 98% 04/03/2019 10:11 AM DIRECTOR OF ANALYTICS Inhaled Oxygen Concentration - - Weight 133.8 kg (295 lb) 04/03/2019 10:11 AM DIRECTOR OF ANALYTICS Height 188 cm (6' 2 ) 04/03/2019 10:11 AM DIRECTOR OF ANALYTICS Body Mass Index 37.88 04/03/2019 10:11 AM DIRECTOR OF ANALYTICS Plan of Treatment Health Maintenance Due Date Last Done Comments Hepatitis C Virus (HCV) Screening 1960 TdaP Immunization 1960 Colonoscopy 2003 Colorectal Cancer Screening 2003 Cologuard 01/16/2008 Immunochemical Fecal Occult Blood 01/16/2008 Pneumococcal Immunization (5 0+ years) (1 of 1 - PCV) 01/16/2008 Zoster Immunization (1 of 2) 01/16/2008 PSA Discussion 2013 Influenza Immunization (#1) 2024 03/09/2020 SARS-COV-2 Immunization ( - season) 2024 04/21/2021, 09/02/2020, 08/05/2020 Respiratory Syncytial Virus (RSV) Immunization (Adult) (1 - 1-dose 75+ series) 2033 Hepatitis B Immunization Aged Out No longer eligible based on patient's age to complete this topic Meningococcal Immunization (ACWY) Aged Out No longer eligible b ased on patient's age to complete this topic Rotavirus Immunization Aged Out No lo nger eligible based on patient's age to complete this topic Care Teams Stair Builder Relationship Specialty Start Date End Date Alexey Hendrix, [facility] [address] [place] [address] PCP - General Physician Edge Inker Uppers 06/17/17
--- OUTSIDE RECORDS SUMMARY | 2024-06-04 21:11 | XMS_ITS | Encounter Summary ---
Author Organization [facility] Address [address] [place] [address] Care Team Providers Care Job Service Consultant Name Role Phone Unavailable Primary Care Provider Unavailabl e Encounter Details Date Type Department Care Team (Late st Contact Info) Description 01/04/2020 Lab Requisition [facility] [address] [facility] [place] [address] Narayan Marti Jr., MD [address] [place] [address] Social History Tobacco Use Types Packs/Day Years Used Date Smoking Tobacco: Never Assessed Sex and Gender Information Value Date Recorded Sex Assigned at Not on file Gender Identity Not on file Sexual Orientation Not on file documented as of this encounter Plan of Treatment Not on file documented as of this encounter Procedures Procedure Name Priority Date/Time Associated Diagnosis Comments DERMATOPATHOLOGY Routine 01/01/2020 12:0 0 AM CDT documented in this encounter Results * DERMATOPATHOLOGY (01/01/2020 12:00 AM CDT) Case Report Dermatopathology Report ? Case: [id number] ? Authorizing Provider: ??Narayan Marti Jr., MD ??Collected: ? 01/01/2020 12:00 AM ? Ordering Location: ? [facility] ?Received: ?01/04/2020 07:53 AM ? Pathologist: ? Bethany Abreu MD ? Specimen: ?Skin, left inferior posterior neck ? 0 2:31 PM CDT DERMATOPATHOLOGY LABORATORY Final Diagnosis Specimen A. 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 . 0 2:31 PM CDT DERMATOPATHOLOGY LABORATORY Gross Description Specimen A: Received is one formalin filled container labeled with the patient's name and designated left inferior posterior neck. The specimen consists of a shave biopsy measuring [id number]. Jar 0. 0 2:31 PM CDT DERMATOPATHOLOGY LABORATORY Microscopic Description Specimen A. SKIN, left inferior posterior neck: The epidermis shows parakeratosis, full thickness disorderly maturation of keratinocytes, mitoses at different levels, and dyskeratotic cells. 0 2:31 PM CDT DERMATOPATHOLOGY LABORATORY Disclaimer An external and internal positive and negative controls are appropriate for the histochemical, immunohistochemical and immunofluorescence stain(s) in this case (if any), except where stated explicitly. The performance characteristics of the stain(s) cited in this report were developed and its performance characteristic determined by the Dermatopathology Laboratory at [facility], directed by Dr. Tami Abreu. These tests need not be, and therefore are not, approved by the [place] Food and Drug Administration. The tests are used for clinical purposes. Billing Codes Specimen Charges Stain Charges 99489 1 0 2:31 PM CDT DERMATOPATHOLOGY LABORATORY Embedded Images 0 2:31 PM CDT DERMATOPATHOLOGY LABORATORY Pathology/Cytolog y TISSUE SPECIMEN FROM SKIN / Unknown 01/01/2020 01/04/2020 7:53 AM CDT Narayan Marti Jr., MD LAB - PATHOLOGY /CYTOLOGY ORDERABLES DERMATOPATHOLOGY LABORATORY [facility] - Department of Dermatology [facility]/[address] [phone] documented in this encounter Visit Diagnoses Not on filedocumented in this encounter
--- OUTSIDE RECORDS SUMMARY | 2024-06-04 21:11 | XMS_ITS | Patient Health Summary ---
Author Organization [facility] [employer] Address [address] [place] [address] Care Team Providers Care Trekking Guide Name Role Phone Unavailable Primary Care Provider Unavailabl e Note from [facility],non-owned Affiliates and Associated Physician Practices is amultiple site organization consisting of ambulatory clinics and hospital sitesin [place], [place], [place] and [place]. This disclosure is being madepursuant to the Care Everywhere program and may not contain all information available regarding this patient. Last updated 18.[facility] [employer] Social History Tobacco Use Types Packs/Day Years Used Date Smoking Tobacco: Never Assessed Sex and Gender Information Value Date Recorded Sex Assigned at Not on file Gender Identity Not on file Sexual Orientation Not on file Procedures * DERMATOPATHOLOGY(Performed 10/26/2020) * DERMATOPATHOLOGY(Performed 01/01/2020) * PROSTATE SPECIFIC ANTIGEN SCREEN(Performed 01/23/2011) Results * DERMATOPATHOLOGY (10/26/2020 3:33 AM CDT) Only the most recent of2 resultswithin the time period is included. Case Report Dermatopathology Report ? Case: [id number] ? Authorizing Provider: ??Narayan Marti Jr., MD ??Collected: ? 10/26/2020 03:33 AM ? Ordering Location: ? [facility] ?Received: ?10/27/2020 08:03 AM ? Pathologist: ? Jana Soni MD ? Specimens: ?? A) - Skin, right posterior neck ? B) - Skin, right posterior shoulder ? 12:21 PM T DERMATOPATHOLOGY LABORATORY Final Diagnosis Specimen A. SKIN, right posterior neck: BASAL CELL CARCINOMA, NODULAR TYPE (C44.41) Specimen B. SKIN, right posterior shoulder: LICHEN PLANUS-LIKE KERATOSIS (BENIGN LICHENOID KERATOSIS) (L82.1) 12:21 PM T DERMATOPATHOLOGY LABORATORY Clinical History A-B: Basal cell carcinoma vs irritated seborrheic keratosis vs folliculitis. . 12:21 PM T DERMATOPATHOLOGY LABORATORY Gross Description Specimen A: Received is one formalin filled container labeled with the patient's name and designated right posterior neck. The specimen consists of a shave biopsy measuring [id number]. Jar 0. Specimen B: Received is one formalin filled container labeled with the patient's name and designated right posterior shoulder. The specimen consists of a shave biopsy measuring [id number]. Jar 0. 12:21 PM T DERMATOPATHOLOGY LABORATORY Microscopic Description Specimen A. SKIN, right posterior neck: Within the dermis there are aggregates of basaloid cells with a high nuclear to cytoplasmic ratio and peripheral palisading. Specimen B. SKIN, right posterior shoulder: The epidermis is mildly acanthotic. There is a lichenoid infiltrate with vacuolar changes of basilar keratinocytes and scattered necrotic keratinocytes. 1 12:21 PM CDT DERMATOPATHOLOGY LABORATORY Disclaimer An external and internal positive and negative controls are appropriate for the histochemical, immunohistochemical and immunofluorescence stain(s) in this case (if any), except where stated explicitly. The performance characteristics of the stain(s) cited in this report were developed and its performance characteristic determined by the Dermatopathology Laboratory at [facility], directed by Dr. Tami Abreu. These tests need not be, and therefore are not, approved by the [place] Food and Drug Administration. The tests are used for clinical purposes. Billing Codes Specimen Charges Stain Charges 09056 03183 1 1 1 12:21 PM CDT DERMATOPATHOLOGY LABORATORY Embedded Images 1 12:21 PM CDT DERMATOPATHOLOGY LABORATORY Pathology/Cytology TISSUE SPECIMEN FROM SKIN / Unknown 10/26/2020 3:33 AM CDT 10/27/2020 8:03 AM CDT Miscellaneous samples (specimen) TISSUE SPECIMEN FROM SKIN / Unknown 10/26/2020 3:33 AM CDT 10/27/2020 8:03 AM CDT Narayan Marti Jr., MD LAB - PATHOLOGY /CYTOLOGY ORDERABLES DERMATOPATHOLOGY LABORATORY [facility] Department of Dermatology [address], [address] [phone] * PROSTATE SPECIFIC ANTIGEN SCREEN (01/23/2011 4:19 PM CDT) PSA 0.53 0.0 - 4.0 ng/ml [facility]OR[facility]ORY BLOOD SPECIMEN / Unknown 01/23/2011 4:19 PM CDT 01/24/2011 3:44 PM CDT Torin Khan MD LAB - CHEMISTRY TITI SINGLE[place] [facility] [address] [place] [address]
--- OUTSIDE RECORDS SUMMARY | 2024-06-04 21:12 | XMS_ITS | Clinical Summary ---
Author Organization [facility] Address [address] [place] [address] Care Team Providers Care Test Hole Driller Name Role Phone Nain Barboza MD Unavailable [phone] Alexey Hendrix Unavailable [phone] Taz Cox DO Primary Care Provider [phone] Allergies No known active allergies Medications omeprazole (PriLOSEC) 40 mg capsule Take 1 capsule (40 mg total) by mouth daily Active montelukast (SINGULAIR) 10 mg tablet Take 1 tablet (10 mg total) by mouth nightly Active hydroCHLOROthia zide (HYDRODIURIL) 12.5 mg tablet Take 1 tablet (12.5 mg total) by mouth daily Active aspirin 81 mg enteric coated tablet Take 1 tablet (81 mg total) by mouth daily Active albuterol HFA (PROVENTIL HFA,VENTOLIN HFA,PROAIR HFA) 90 mcg/actuation inhaler Inhale 2 puffs every 6 (six) hours as needed for wheezing 1 each 1 07/10/2021 Active Vascepa 1 gram capsule Take 2 capsules (2 g total) by mouth 2 (two) times a day 05/28/2022 Active carBAMazepine (TEGretol) 200 mg tablet 12/11/2022 Active atorvastatin (LIPITOR) 40 mg tablet TAKE 1 TABLET BY MOUTH IN THE EVENING 90 tablet 3 11/20/2023 Active clopidogreL (PLAVIX) 75 mg tablet TAKE 1 TABLET BY MOUTH EVERY DAY 90 tablet 2 05/04/2024 Active metoprolol (LOPRESSOR) 100 mg tablet TAKE 1 TABLET BY MOUTH TWICE A DAY 180 tablet 2 05/04/2024 Active Active Problems Problem Noted Date Diagnosed Date Hx of CABG 12/07/2021 Aftercare following surgery of the circulatory s ystem 08/07/2021 CAD in [place] artery 07/03/2021 Dysphagia 01/07/2019 Overview (01/07/2019): Added automatically from request for surgery [id number] Encounter for screening colonoscopy 10/17/2018 Overview (10/17/2018): Added automatically from request for surgery [id number] Encounters Date Type Department Care Team Description 05/08/2024 Telephone [facility] Cardiology [address] [place] [address] Shobha Gutierrez MA Drug Utilization Program from Last 3 Months Surgical History Surgery Date Site/Laterality Comments COLONOSCOPY 11/10/2018 ROTATOR CUFF REPAIR Right CORONARY ARTERY BYPASS GRAFT 07/05/2021 CABG x2 (MONAE->LAD & L Rad PDA) Medical History Medical History Date Comments GERD (gastroesophageal reflux disease) Hypertension Hyperlipidemia Diabetes mellitus (HCC) diet con trolled currently Coronary artery disease CKD (chronic kidney disease) stage 2, GFR 60-89 ml/min Family History Medical History Relation Name Comments Cancer Father Cancer Mother Relation Name Status Comments Father Mother Social History Tobacco Use Types Packs/Day Years Used Date Smoking Tobacco: Former Cigarettes Q uit: 1989 Smokeless Tobacco: Never Tobacco Cessation:Counseling Given: Not Answered Alcohol Use Standard Drinks/Week Comments Yes 0 (1 standard drink = 0.6 oz pur e alcohol) rarely Social Connection and Isolat ion Panel [NHANES] Answer Date Recorded In a typical week, how many times do you talk on the phone with family, friends, or neighbors? More than three times a week 07/04/2021 How often do you get togethe r with friends or relatives? More than three times a week 07/04/2021 Attends Gnosticist Services Not on file 07/04 Active Member of Clubs or Organizations Not on f ile 07/04/2021 Attends Club or Organization Meetings Not on sasha e 07/04/2021 Are you , , di vorced, , never , or living with a partner? 07/04/2021 AUDIT-C Answer Date Recorded Q1: How often do you have a drink containing alc ohol? 2-4 times a month 08/07/2021 Average Number of Drinks Not on file 022 Frequency of Binge Drinking Not on file 07/12 Overall Financial Resource Strain (CARDIA) Answe r Date Recorded How hard is it for you to pa y for the very basics like food, housing, medical care, and heating? Not very hard 07/04/2021 Hunger Vital Sign Answer Date Recorded Within the past 12 months, y ou worried that your food would run out before you got the money to buy more. Never true 07/04/19 22 Within the past 12 months, t he food you bought just didn't last and you didn't have money to get more. Never true 07/04/2021 PRAPARE - Transportation Answer Date Re corded In the past 12 months, has l ack of transportation kept you from medical appointments or from getting medications? No 06/14 In the past 12 months, has l ack of transportation kept you from meetings, work, or from getting things needed for daily living? 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 Gender Identity Not on file Sexual Orientation Not on file Obstetrics History Last Filed Vital Signs Vital Sign Reading Time Taken Comments Blood Pressure 128/70 11/19/2023 8:06 AM CDT Pulse 84 11/19/2023 8:06 AM CDT Temperature 36.7 ??C (98 ??F) 07/10/2021 1:25 PM PRIVATE TUTOR Respiratory Rate 16 08/07/2021 8:23 AM CDT Oxygen Saturation 96% 11/19/2023 8:06 AM CDT Inhaled Oxygen Concentration - - Weight 132.5 kg (292 lb 3.2 oz) 11/19/2023 8:06 AM CDT Height 188 cm (6' 2 ) 11/19/2023 8:06 AM CDT Body Mass Index 37.52 11/19/2023 8:06 AM CDT Plan of Treatment Health Maintenance Due Date Last Done Comments Depression Screening 1960 Hepatitis C Screening 1960 Prostate Cancer Screening-PSA 1960 Pneumococcal vaccine 65+ (1 of 2 - PCV) 01/16/1964 DTaP/Tdap/Td Vaccine (1 - Tdap) 1969 Hepatitis B Screening 01/16/1976 Zoster Vaccine (1 of 2) 01/16/2008 Fall Risk Assessment 07/10/2022 07/10/2021 Abdominal Aortic Aneurysm (A AA) Screen 2023 Well Visit 65+ 2023 Covid-19 Vaccine (2023-2 5 season) 2024 04/21/2021, 09/02/2020, 08/05/2020 Influenza Vaccine (#1) 2024 03/09/2020 Colon Cancer Screening-Colonoscopy 11/10/20282018 Colon Cancer Screening-CT Colonography Discontinued 11/10/2018 Colon Cancer Screening-DNA Stool Discontinued 11/11/19 Colon Cancer Screening-FIT Discontinued 11/10/2018 Colon Cancer Screening-Sigmoidoscopy Discontinued 05/2018 Procedures Procedure Name Priority Date/Time Associated Diagnosis Comments COLONOSCOPY 11/10/2018 11:47 AM CDT from Last 3 Months or Most Recently Relevant to Health Maintenance Results * COLONOSCOPY (11/10/2018 11:47 AM CDT) Anatomical Region Laterality Modality Other Narrative Procedure Note Jose Nino MD - 11/10/2018 11:47 AM CDT [facility] Patient Name: Isma Gonsalves Procedure Date: 11/10/2018 11:47 AM Date of : 1960 Admit Type: Outpatient Age: 58 Gender: Male Attending MD: Jose Nino M.D. Room: [facility] RO[facility] 1 Note Status: Addendum Patient Profile: [age] white male. No family history of colon cancer. Screening colonoscopy. Procedure: Colonoscopy Indications: Screening for colorectal malignant neoplasm, This is the patient's first colonoscopy Referring MD: JOSE ALFREDO Chowdary Providers: Jose Nino M.D. Impression: - The entire examined colon is normal. - Mild diverticulosis in the sigmoid colon. - Internal hemorrhoids. - No specimens collected. Recommendation: - Repeat colonoscopy in 10 years for screeningpurposes. - Continue present medications. Medicines: Monitored Anesthesia Care Complications: No immediate complications. Estimated Blood Loss: Estimated blood loss: none. Procedure: Pre-Anesthesia Assessment: - Prior to the procedure, a History and Physical was performed, and patient medications and allergieswere reviewed. The patient's tolerance of previous anesthesia was also reviewed. The risks and benefitsof the procedure and the sedation options and riskswere discussed with the patient. All questions were answered, and informed consent was obtained. Prior Anticoagulants: The patient has taken no previous anticoagulant or antiplatelet agents. ASA Grade Assessment: II - A patient with mild systemicdisease. After reviewing the risks and benefits, the patientwas deemed in satisfactory condition to undergo the procedure. The benefits, risks and alternatives of theprocedure and sedation were discussed and informed consent was obtained. All questions were answered. Please referto the signed informed consent document in the medical record. The scope was passed under direct vision.The Pediatric Colonoscope PCF-H190L [id number] was introduced through the anus and advanced to the the cecum, identified by appendiceal orifice andileocecal valve. The colonoscopy was performed without difficulty. The patient tolerated the procedurewell. The quality of the bowel preparation was good. Findings: The perianal and digital rectal examinations were normal. The cecum appeared normal. The colon (entire examined portion) appeared normal. No polyps and no mass lesions noted. A few small-mouthed diverticula were found in the sigmoid colon. Internal hemorrhoids were found during retroflexion. The hemorrhoids were small. Electronically signed by Jose Nino M.D. Jose Nino M.D. 11/10/2018 1:00:43 PM Number of Addenda: 1 Note Initiated On: 11/10/2018 11:47 AM Procedure Code(s): --- Professional --- 12840, Colonoscopy, flexible; diagnostic, including collection of specimen(s) by brushing or washing, when performed (separateprocedure) Diagnosis Code(s): --- Professional --- Z12.11, Encounter for screening for malignant neoplasm of colon K64.8, Other hemorrhoids K57.30, Diverticulosis of large intestine without perforation orabscess without bleeding CPT copyright 2017 [employer]. All rights reserved. The codes documented in this report are preliminary and upon art objects repairer reviewmay be revised to meet current compliance requirements. Recognized by the [employer] for promoting quality in endoscopy Addendum Number: 1 Addendum Date: 11/10/2018 3:23:50 PM Patient later indicated that his brother had colon cancer. With thatin mind colonoscopy should be done every 5 years. This was discussedwith the patient. Electronically signed by Jose Nino M.D. Jose Nino M.D. 11/10/2018 3:24:13 PM Jose Nino MD ENDOSCOPY PROCEDURES Edite d Result - Final from Last 3 Months or Most Recently Relevant to Health Maintenance Insurance MEDICARE [facility], [place] BL CHOICE PRF PPO [place] [facility] MEDICARE Advance Directives For more information, please contact: [phone] * Full Code (Latest Code Status on File) Date Activated Date Inactivated Comments 07/03/2021 5:34 PM 07/10/2021 6:17 PM * Full Code Date Activated Date Inactivated Comments 01/21/2019 11:52 AM 01/21/2019 7:04 PM * Full Code Date Activated Date Inactivated Comments 01/21/2019 11:51 AM 01/21/2019 11:52 AM Care Teams Test Hole Driller Relationship Specialty Start Date End Date Taz Cox DO [address] [place] [address] PCP - General Internal Medicine 08/03/21 Nain Barboza MD [address] [address] Consulting Physician Cardiology 07/07/21 Alexey Hendrix PA [address] [place] [address] Referring Physician Family Practice 08/02/21
--- OUTSIDE RECORDS SUMMARY | 2024-06-04 21:12 | XMS_ITS | Referral Summary ---
Author Organization [facility] Medical Office Building B Address [address] [place] [address] Care Team Providers Care Watch Assembly Instructor Name Role Phone Nain Barboza MD Unavailable Alexey Hendrix Unavailable [phone] Taz Cox DO Primary Care Provider [phone] Encounters Date Type Department Care Team Description 05/08/2024 Telephone [facility] Cardiology [address] [place] [address] Shobha Gutierrez MA Drug Utilization Program from Last 3 Months Allergies No known active allergies Medications omeprazole [...] the circulatory s ystem 08/07/2021 CAD in elem artery 07/03/2021 Dysphagia 01/07/2019 Overview (01/07/2019): Added automatically from request for surgery [id number] Encounter for screening colonoscopy 10/17/2018 Overview (10/17/2018): Added automatically from request for surgery [id number] Social History Tobacco Use Types Packs/Day Years [...] than three times a week 07/04/2021 Attends Mosque Services Not on file 07/04 Active Member of Clubs or Organizations Not on f ile 07/04/2021 Attends Club or Organization Meetings Not on assha e 07/04/2021 Are you , , di [...] on file 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 Gender Identity Not on file Sexual Orientation Not on file Last Filed Vital Signs Vital Sign Reading Time Taken Comments Blood Pressure 128/70 11/19/2023 8:06 AM CDT Pulse 84 11/19/2023 8:06 AM CDT Temperature 36.7 ??C (98 ??F) 07/10/2021 1:25 PM LABORER MINE Respiratory Rate 16 08/07/2021 8:23 AM CDT Oxygen Saturation 96% 11/19/2023 8:06 AM CDT Inhaled Oxygen Concentration - - Weight 132.5 kg (292 lb 3.2 oz) 11/19/2023 8:06 AM CDT Height 188 cm (6' 2 ) 11/19/2023 8:06 AM CDT Body Mass Index 37.52 11/19/2023 8:06 AM CDT Plan of Treatment Not on file Procedures Procedure Name Priority Date/Time Associated Diagnosis Comments COLONOSCOPY 11/10/2018 11:47 AM CDT from Last 3 Months or Most Recently Relevant to Health Maintenance Results * COLONOSCOPY (11/10/2018 11:47 AM CDT) Anatomical Region Laterality Modality Other Narrative Procedure Note Jose Nino MD - 11/10/2018 11:[address] [facility] Patient Name: Isma Gonsalves Procedure Date: 11/10/2018 11:47 AM Date of : 1960 Admit Type: Outpatient Age: 58 Gender: Male Attending MD: Jose Nino M.D. Room: [facility] ENDOSCOPY ROOM 1 Note Status: Addendum Patient [...] passed under direct vision.The Pediatric Colonoscope PCF-H190L [id number] was introduced through the anus and advanced [...] 11:47 AM Procedure Code(s): --- Professional --- 87412, Colonoscopy, flexible; diagnostic, including collection of specimen(s) by brushing or washing, when performed (separateprocedure) Diagnosis Code(s): --- Professional --- Z12.11, Encounter for screening for malignant neoplasm of colon K64.8, Other hemorrhoids K57.30, Diverticulosis of large intestine without perforation orabscess without bleeding CPT copyright 2017 [employer] [place] [employer]. All rights reserved. The codes documented in this report are preliminary and upon agricultural purchasing agent reviewmay be revised to meet current compliance requirements. Recognized by the [employer] [place] Society for Gastrointestinal Endoscopy for promoting quality [...] Recently Relevant to Health Maintenance Insurance MEDICARE [facility] PREFERRED BL CHOICE PRF PPO [place] [employer] MEDICARE Advance Directives For more information, please contact: [phone] * Full Code (Latest Code Status on File) Date Activated Date Inactivated Comments 07/03/2021 5:34 PM 07/10/2021 6:17 PM * Full Code Date Activated Date Inactivated Comments 01/21/2019 11:52 AM 01/21/2019 7:04 PM * Full Code Date Activated Date Inactivated Comments 01/21/2019 11:51 AM 01/21/2019 11:52 AM Care Teams Watch Assembly Instructor Relationship Specialty Start Date End Date Taz Cox DO [address] [place] [address] PCP - General Internal Medicine 08/03/21 Nain Barboza MD [address] [facility] [address] [address] Consulting Physician Cardiology 07/07/21 Alexey Hendrix PA [address] [place] [address] Referring Physician Family Practice 08/02/21
== END 2024-05-26 10:30 | disposition home or self-care (01) ==
PROVIDERS: PCP Internal Medicine; Visit Provider Nurse Practitioner
DX: E78.2 Mixed hyperlipidemia (principal); Z12.5 Encounter for screening for malignant neoplasm of prostate; R41.3 Other amnesia; E11.9 Type 2 diabetes mellitus without complications; D51.8 Other vitamin B12 deficiency anemias
CPT/HCPCS: 36415; 80053; 80061; 82043; 82607; 83036; 84153; 84443; 85025; G0103

== ENCOUNTER 2024-10-23 09:57 | Outpatient (CLI) | payer MEDICARE, SELFPAY ==
--- OUTSIDE RECORDS SUMMARY | 2024-10-23 10:09 | XMS_ITS | Referral Summary ---
Author Organization [facility] Medical Office Building B Address [address] [place] [address] Care Team Providers Care Concrete Form Setter And Finisher Name Role Phone Nain Barboza MD Unavailable [phone] Alexey Hendrix Unavailable [phone] Taz Cox DO Primary Care Provider [phone] Allergies No known active allergies Medications omeprazole [...] the circulatory s ystem 08/07/2021 CAD in [place] artery 07/03/2021 Dysphagia 01/07/2019 Overview (01/07/2019): Added automatically from request for surgery [id number] Encounter for screening colonoscopy 10/17/2018 Overview (10/17/2018): Added automatically from request for surgery [id number] Social History Tobacco Use Types Packs/Day Years [...] money to buy more. 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 Room: [facility] ENDOSCOPY ROOM 1 Note Status: Addendum Patient [...] passed under direct vision.The Pediatric Colonoscope PCF-H190L [id number] was introduced through the anus and advanced [...] 11:47 AM Procedure Code(s): --- Professional --- 61004, Colonoscopy, flexible; diagnostic, including collection of specimen(s) by brushing or washing, when performed (separateprocedure) Diagnosis Code(s): --- Professional --- Z12.11, Encounter for screening for malignant neoplasm of colon K64.8, Other hemorrhoids K57.30, Diverticulosis of large intestine without perforation orabscess without bleeding CPT copyright 2017 [place] [employer]. All rights reserved. The codes documented in this report are preliminary and upon emblem fuser tender reviewmay be revised to meet current compliance requirements. Recognized by the [place] Society for Gastrointestinal Endoscopy for promoting quality [...] Recently Relevant to Health Maintenance Insurance MEDICARE [facility] [place] PREFERRED BL CHOICE PRF [place] [facility] MEDICARE Advance Directives For more information, please contact: [phone] * Full Code (Latest Code Status on File) Date Activated Date Inactivated Comments 07/03/2021 5:34 PM 07/10/2021 6:17 PM * Full Code Date Activated Date Inactivated Comments 01/21/2019 11:52 AM 01/21/2019 7:04 PM * Full Code Date Activated Date Inactivated Comments 01/21/2019 11:51 AM 01/21/2019 11:52 AM Care Teams Concrete Form Setter And Finisher Relationship Specialty Start Date End Date Taz Cox DO [address] [place] [address] PCP - General Internal Medicine 08/03/21 Nain Barboza MD [address] [facility] [address] [facility] [address] [place] [address] Consulting Physician Cardiology 07/07/21 Alexey Hendrix PA [address] [place] [address] Referring Physician Family Practice 08/02/21
--- OUTSIDE RECORDS SUMMARY | 2024-10-23 10:09 | XMS_ITS | Clinical Summary ---
Author Organization [facility] Address [address] [place] [address] Phone Care Team Providers Care Shotgun Shell Loading Machine Operator Name Role Phone Alexey Hendrix Primary Care Provider Allergies No known active allergies Medications IBUPROFEN [...] on file Legal Sex Male 9:46 AM DRAPERY ESTIMATOR Gender Identity Not on file Sexual Orientation Not on file Last Filed Vital Signs Vital Sign Reading Time Taken Comments Blood Pressure 132/88 04/03/2019 10:11 AM DRAPERY ESTIMATOR Pulse 88 04/03/2019 10:11 AM DRAPERY ESTIMATOR Temperature 36.1 C (97 F) 04/03/2019 10:11 AM DRAPERY ESTIMATOR Respiratory Rate 20 04/03/2019 10:11 AM DRAPERY ESTIMATOR Oxygen Saturation 98% 04/03/2019 10:11 AM DRAPERY ESTIMATOR Inhaled Oxygen Concentration - - Weight 133.8 kg (295 lb) 04/03/2019 10:11 AM DRAPERY ESTIMATOR Height 188 cm (6' 2) 04/03/2019 10:11 AM DRAPERY ESTIMATOR Body Mass Index 37.88 04/03/2019 10:11 AM DRAPERY ESTIMATOR Plan of Treatment Health Maintenance Due Date Last Done Comments Hepatitis C Virus (HCV) Screening 1960 TdaP Immunization 1960 Cologuard 2003 Colonoscopy 2003 Colorectal Cancer Screening 2003 Immunochemical Fecal Occult Blood 2003 Pneumococcal Immunization (5 0+ years) (1 of 1 - PCV) 01/16/2008 Zoster Immunization (1 of 2) 01/16/2008 SARS-COV-2 Immunization (4 - season) 2024 04/21/2021, 09/02/2020, 08/05/2020 Influenza Immunization (Seas on Ended) 2025 03/09/2020 Respiratory Syncytial Virus (RSV) Immunization (Adult) (1 - 1-dose 75+ series) 2033 Hepatitis B Immunization Aged Out No longer eligible based on patient's age to complete this topic Human Papillomavirus (HPV) Immunization Aged Out No longer eligible b ased on patient's age to complete this topic Meningococcal Immunization (ACWY) Aged Out No longer eligible b ased on patient's age to complete this topic Rotavirus Immunization Aged Out No lo nger eligible based on patient's age to complete this topic Care Teams Shotgun Shell Loading Machine Operator Relationship Specialty Start Date End Date Alexey Hendrix, PAC [address] [place] [address] PCP - General Physician Forms Designer 06/17/17
--- OUTSIDE RECORDS SUMMARY | 2024-10-23 10:09 | XMS_ITS | Clinical Summary ---
Author Organization [facility] Medical Office Building B Address [address] [place] [address] Care Team Providers Care Nurse Monitoring Name Role Phone Nain Barboza MD Unavailable [phone] Alexey Hendrix Unavailable [phone] Taz Cox DO Primary Care Provider [phone] Allergies No known active allergies Medications omeprazole [...] the circulatory s ystem 08/07/2021 CAD in [place] artery 07/03/2021 Dysphagia 01/07/2019 Overview (01/07/2019): Added automatically from request for surgery [id number] Encounter for screening colonoscopy 10/17/2018 Overview (10/17/2018): Added automatically from request for surgery [id number] Surgical History Surgery Date Site/Laterality Comments COLONOSCOPY [...] than three times a week 07/04/2021 Attends Orthodoxy Services Not on file 07/04 Active Member [...] on file Legal Sex Male 7:30 PM DIRECTOR AMBULATORY Gender Identity Not on file Sexual Orientation Not on file Obstetrics History Last Filed Vital Signs Vital Sign Reading Time Taken Comments Blood Pressure 128/70 11/19/2023 8:06 AM CDT Pulse 84 11/19/2023 8:06 AM CDT Temperature 36.7 C (98 F) 07/10/2021 1:25 PM DIRECTOR AMBULATORY Respiratory Rate 16 08/07/2021 8:23 AM CDT [...] C Screening 1960 Prostate Cancer Screening-PSA 1960 DTaP/Tdap/Td Vaccine (1 - Tdap) 1969 Hepatitis B Screening 01/16/1976 Pneumococcal vaccine 65+ (1 of 2 - PCV) 1977 Zoster Vaccine (1 of 2) 01/16/2008 Fall Risk Assessment 07/10/2022 07/10/2021 Abdominal Aortic Aneurysm (A AA) Screen 2023 Well Visit 65+ 2023 Covid-19 Vaccine (4 - 2023-2 5 season) 2024 04/21/2021, 09/02/2020, 08/05/2020 Influenza Vaccine (Season Ended) 2025 03/09/20 20 Colon Cancer Screening-Colonoscopy 11/10/20282018 Colon Cancer Screening-CT [...] MD: Jose Nino M.D. Room: [facility] ENDOSCOPY ROOM 1 Note Status: Addendum Patient [...] passed under direct vision.The Pediatric Colonoscope PCF-H190L [id number] was introduced through the anus and advanced [...] 11:47 AM Procedure Code(s): --- Professional --- 85713, Colonoscopy, flexible; diagnostic, including collection of specimen(s) by brushing or washing, when performed (separateprocedure) Diagnosis Code(s): --- Professional --- Z12.11, Encounter for screening for malignant neoplasm of colon K64.8, Other hemorrhoids K57.30, Diverticulosis of large intestine without perforation orabscess without bleeding CPT copyright 2017 [place] [employer]. All rights reserved. The codes documented in this report are preliminary and upon synthetic staple extruder reviewmay be revised to meet current compliance requirements. Recognized by the [place] Society for Gastrointestinal Endoscopy for promoting quality [...] Recently Relevant to Health Maintenance Insurance MEDICARE [facility] BL CHOICE [place]F PPO [place] [facility] MEDICARE Advance Directives For more information, please contact: [phone] * Full Code (Latest Code Status on File) Date Activated Date Inactivated Comments 07/03/2021 5:34 PM 07/10/2021 6:17 PM * Full Code Date Activated Date Inactivated Comments 01/21/2019 11:52 AM 01/21/2019 7:04 PM * Full Code Date Activated Date Inactivated Comments 01/21/2019 11:51 AM 01/21/2019 11:52 AM Care Teams Nurse Monitoring Relationship Specialty Start Date End Date Taz Cox DO [address] [place] [address] PCP - General Internal Medicine 08/03/21 Nain Barboza MD [address] [address] Consulting Physician Cardiology 07/07/21 Alexey Hendrix PA [address] [place] [address] Referring Physician Family Practice 08/02/21
--- OUTSIDE RECORDS SUMMARY | 2024-10-23 10:10 | XMS_ITS | Encounter Summary ---
Author Organization [facility] Address [address] [facility] [place] [address] Care Team Providers Care Caustic Loader Name Role Phone Unavailable Primary Care Provider Unavailabl e Encounter Details Date Type Department Care Team (Late st Contact Info) Description 01/04/2020 Lab Requisition [facility] DermPath Lab [address] [facility] [place] [address] Narayan Marti Jr., MD [address] [facility] [address] [facility] [address] [place] [address] Social History Tobacco Use Types Packs/Day Years Used Date Smoking Tobacco: Never Assessed Sex and Gender Information Value Date Recorded Sex Assigned at Not on file Legal 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 WEB OPERATIONS MANAGER Gender Identity Not on file Sexual Orientation Not on file documented as of this encounter Plan of Treatment Not on file documented as of this encounter Procedures Procedure Name Priority Date/Time Associated Diagnosis Comments DERMATOPATHOLOGY Routine 01/01/2020 12:0 0 AM CDT documented in this encounter Results * DERMATOPATHOLOGY (01/01/2020 12:00 AM CDT) Case Report Dermatopathology Report Case: [id number] Authorizing Provider: Narayan Marti Jr., MD Collected: 01/01/2020 12:00 AM Ordering Location: [facility] DermPath Lab Received: 01/04/2020 07:53 AM Pathologist: Bethany Abreu MD Specimen: Skin, left inferior posterior neck 0 2:31 PM CDT DERMATOPATHOLOGY LABORATORY Final Diagnosis Specimen A. 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 . 0 2:31 PM CDT DERMATOPATHOLOGY LABORATORY Gross Description Specimen A: Received is one formalin filled container labeled with the patient's name and designated left inferior posterior neck. The specimen consists of a shave biopsy measuring [id number]. Jar 0. 0 2:31 PM CDT DERMATOPATHOLOGY [...] characteristic determined by the Dermatopathology Laboratory at [facility], directed by Dr. Tami Abreu. These tests need not be, and therefore are not, approved by the [place] Food and Drug Administration. The tests are used for clinical purposes. Billing Codes Specimen Charges Stain Charges 64011 1 0 2:31 PM CDT DERMATOPATHOLOGY LABORATORY Embedded Images 0 2:31 PM CDT DERMATOPATHOLOGY LABORATORY Pathology/Cytolog y TISSUE SPECIMEN FROM SKIN / Unknown 01/01/2020 01/04/2020 7:53 AM CDT us Narayan Marti Jr., MD LAB - PATHOLOGY/CYTOLOG Y ORDERABLES Final Result DERMATOPATHOLOGY LABORATORY [facility] - Department of Dermatology [employer] [place] [address], [facility] [phone] documented in this encounter Visit Diagnoses Not on filedocumented in this encounter
--- OUTSIDE RECORDS SUMMARY | 2024-10-23 10:10 | XMS_ITS | Encounter Summary ---
Author Organization [facility] Address [facility] [facility] [place] [address] Care Team Providers Care Pet Nutrition Specialist Name Role Phone Unavailable Primary Care Provider Unavailabl e Encounter Details Date Type Department Care Team (Late st Contact Info) Description 10/27/2020 Lab Requisition [facility] DermPath Lab [address] [facility] [place] [address] Narayan Marti Jr., MD [address] [facility] [address] [place] [address] Social History Tobacco Use Types Packs/Day Years Used Date Smoking Tobacco: Never Assessed Sex and Gender Information Value Date Recorded Sex Assigned at Not on file Legal 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 WAITER/WAITRESS COUNTER Gender Identity Not on file Sexual Orientation Not on file documented as of this encounter Plan of Treatment Not on file documented as of this encounter Procedures Procedure Name Priority Date/Time Associated Diagnosis Comments DERMATOPATHOLOGY Routine 10/26/2020 3:33 AM CDT documented in this encounter Results * DERMATOPATHOLOGY (10/26/2020 3:33 AM CDT) Case Report Dermatopathology Report Case: [id number] Authorizing Provider: Narayan Marti Jr., MD Collected: 10/26/2020 03:33 AM Ordering Location: [facility] DermPath Lab Received: 10/27/2020 08:03 AM Pathologist: Jana Soni MD Specimens: A) - Skin, right posterior neck B) - Skin, right posterior shoulder 12:21 PM CDT DERMATOPATHOLOGY LABORATORY Final Diagnosis Specimen A. SKIN, right posterior neck: BASAL CELL CARCINOMA, NODULAR TYPE (C44.41) Specimen B. SKIN, right posterior shoulder: LICHEN PLANUS-LIKE KERATOSIS (BENIGN LICHENOID KERATOSIS) (L82.1) 12:21 PM T DERMATOPATHOLOGY LABORATORY at 1221 CDT Clinical History A-B: Basal cell carcinoma vs irritated seborrheic keratosis vs folliculitis. . 12:21 PM CDT DERMATOPATHOLOGY LABORATORY Gross Description Specimen A: Received is one formalin filled container labeled with the patient's name and designated right posterior neck. The specimen consists of a shave biopsy measuring [id number]. Jar 0. Specimen B: Received is one formalin filled container labeled with the patient's name and designated right posterior shoulder. The specimen consists of a shave biopsy measuring [id number]. Jar 0. 12:21 PM CDT DERMATOPATHOLOGY LABORATORY [...] characteristic determined by the Dermatopathology Laboratory at [facility], directed by Dr. Tami Abreu. These tests need not be, and therefore are not, approved by the [place] Food and Drug Administration. The tests are used for clinical purposes. Billing Codes Specimen Charges Stain Charges 00847 84936 1 1 12:21 PM CDT DERMATOPATHOLOGY LABORATORY Embedded Images 12:21 PM CDT DERMATOPATHOLOGY LABORATORY Pathology/Cytology TISSUE SPECIMEN FROM SKIN / Unknown 10/26/2020 3:33 AM CDT 10/27/2020 8:03 AM CDT Miscellaneous samples (specimen) TISSUE SPECIMEN FROM SKIN / Unknown 10/26/2020 3:33 AM CDT 10/27/2020 8:03 AM CDT us Narayan Marti Jr., MD LAB - PATHOLOGY/CYTOLOG Y ORDERABLES Final Result DERMATOPATHOLOGY LABORATORY [facility] - Department of Dermatology [facility] Specialized Medicine [address] [place] [address], [address] [phone] documented in this encounter Visit Diagnoses Not on filedocumented in this encounter
--- OUTSIDE RECORDS SUMMARY | 2024-10-23 10:10 | XMS_ITS | Clinical Summary ---
Author Organization [facility] [employer] Address [address] [place] [address] Care Team Providers Care Visor Installer Name Role Phone Unavailable Primary Care Provider Unavailabl e Source Comments [facility] [employer],non-owned Affiliates and Associated Physician Practices is amultiple site organization consisting of ambulatory clinics and hospital sitesin [place], [place], [place] and [place]. This disclosure is being madepursuant to the Care Everywhere program and may not contain all information available regarding this patient. 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
--- OUTSIDE RECORDS SUMMARY | 2024-10-23 10:10 | XMS_ITS | Data Portability ---
[facility] Address [address] [place] [address] Care Team Providers Care Sap Administrator Name Role Phone TABATHA HENDRIX Primary Care Provider Assessment No assessment recorded. Plan of Treatment Reminders Order Date Submit Date Provider Last Modified By Organization Details Last Modified Time Details Appointments None recorded . Lab CMP, serum or plasma 2019 [facility], [address] [facility], [place], [address], 0 07:11:16 lipid panel, serum 2019 [facility], [address] [facility], [address], [place], [address], 0 07:11:18 CBC 2019 [facility], [address] [facility], [address], [place], [address], 0 07:11:17 HbA1c (hemoglo bin A1c), blood 2019 020 [facility] In-Office Order, Internal Use Only DO Not Attach Compendium DO Not Attach Compendium, Do Not Delete/merge, [id number] 0 12:01:11 PSA, serum or plasma 2018 019 [facility], [address] [facility], [address], [place], [address], 9 13:08:41 CMP, serum or plasma 2018 019 [facility], [address] [facility], [address], [place], [address], 9 13:08:39 lipid panel, serum 2018 [facility], [address], [place], [address], 9 13:08:41 HbA1c (hemoglo bin A1c), blood 2018 [facility] In-Office Order, Internal Use Only DO Not Attach Compendium DO Not Attach Compendium, Do Not Delete/merge, [id number] 9 10:49:35 CBC 2018 [facility], [address], [place], [address], 9 13:08:40 Referral yoga referral 2018 ssander Not available 9 10:39:40 ENT referral 2018 [facility] Not available 9 10:39:26 Procedures None recorded . Surgeries None recorded . Imaging XR, lumbar spine 2019 [facility] Scheduling, [address] [place], [address], 0 02:31:09 Medication Orders hydrocor tisone 2.5 % topical cream with perineal applicat or 2019 INTERFACE [facility], [address] [place], [address], 0 18:00:50 ibuprofe n 800 mg tablet 2019 INTERFACE [facility], [address] [place], [address], 0 18:00:47 cycloben zaprine 10 mg tablet 2019 INTERFACE [facility], [address], [place], [address], 0 18:00:49 lisinopr il 40 mg tablet 2019 020 INTERFACE [facility], [facility] [address], [place], [address], 0 11:31:02 azithrom ycin 500 mg tablet 2019 [email or web address] [facility], [address], [place], [address], 0 10:41:21 Guaifene sin AC 10 mg-100 mg/5 mL oral liquid 2019 INTERFACE [facility], [facility] [place], [address], 0 14:47:32 Patient TargetsNo targets recorded. Patient Instructions Encounter Date Encounter Id Patient Instructions Last Modified By Organization Details Last Modified Time 04/01/2019 [id number] type 2 diabetes: care instructions jnanney Not available 04/01/2019 10:26:15 body mass index: care instructions jnanney Not available 04/01/2019 10:25:16 learning about healthy weight jnanney Not available 04/01/2019 10:25:17 09/08/2019 [id number] bronchitis: care instructions jnanney Not available 09/08/2019 14:46:08 seasonal allergies: care instructions jnanney Not available 09/08/2019 14:46:09 03/09/2020 [id number] influenza (flu) vaccine: care instructions jnanney Not available 03/09/2020 11:26:53 learning about high blood pressure jnanney Not available 03/09/2020 11:30:28 type 2 diabetes: care instructions jnanney Not available 03/09/2020 11:26:53 03/29/2020 [id number] hemorrhoids: car e instructions jnanney Not available 03/29/2020 17:59:20 high cholesterol : care instructions jnanney Not available 03/29/2020 17:59:20 Reason for Referral ENT Referral for Tongue swel ling Referring Physician: Tabatha Hendrix [facility], Encounter Date: 02/23/2019 Yoga Referral for Body mass index 30+ - obesity Referring Physician: Tabatha Hendrix [facility], Encounter Date: 04/01/2019 Results Created Date Observation Date Name Description Value Unit Range Abnormal Flag Note LastModifiedBy Organization Detail LastModifiedTime 04/01/2004/02/2019 CMP, serum or plasm a glucose 146 mg/dL 65-99 above high normal Not Available [facility] ([facility]) [address] [place], [address], 04/02/2019 13:08:39 04/01/2004/02/2019 CMP, serum or plasm a BUN 17 mg/dL 8-27 Not Available [facility] ([facility]) [address] [place], [address], 04/02/2019 13:08:39 04/01/2004/02/2019 CMP, serum or plasm a creatinine 0.92 mg/dL 0.76-1 .27 Not Available [facility] ([facility]) [address] [place], [address], 04/02/2019 13:08:39 04/01/20 19 04/02/2019 CMP, serum or plasm a eGFR if nonafricn AM 89 mL/mi n/1.7 3 >59 Not Available [facility] ([facility]) [address] [place], [address], 04/02/2019 13:08:39 04/01/20 19 04/02/2019 CMP, serum or plasm a eGFR if africn AM 103 mL/mi n/1.7 3 >59 Not Available [facility] ([facility]) [address] [place], [address], 04/02/2019 13:08:39 04/01/20 19 04/02/2019 CMP, serum or plasm a BUN/creatini ne ratio 18 10-24 Not Available [facility] ([facility]) [address] [place], [address], 04/02/2019 13:08:39 04/01/20 19 04/02/2019 CMP, serum or plasm a sodium 143 mmol/ L 134-14 4 Not Available [facility] ([facility]) [address] [place], [address], 04/02/2019 13:08:39 04/01/2004/02/2019 CMP, serum or plasm a potassium 4.0 mmol/ L 3.5-5. 2 Not Available [facility] ([facility]) [address] [place], [address], 04/02/2019 13:08:39 04/01/20 19 04/02/2019 CMP, serum or plasm a chloride 104 mmol/ L 96-106 Not Available [facility] ([facility]) [address] [place], [address], 04/02/2019 13:08:39 04/01/20 19 04/02/2019 CMP, serum or plasm a carbon dioxide, total 21 mmol/ L 20-29 Not Available [facility] ([facility]) [address] [place], [address], 04/02/2019 13:08:39 04/01/20 19 04/02/2019 CMP, serum or plasm a calcium 9.2 mg/dL 8.6-10 .2 Not Available [facility] ([facility]) [address] [place], [address], 04/02/2019 13:08:39 04/01/2004/02/2019 CMP, serum or plasm a protein, total 6.4 g/dL 6.0-8. 5 Not Available [facility] ([facility]) [address] [place], [address], 04/02/2019 13:08:39 1104/02/2019 CMP, serum or plasm a albumin 4.5 g/dL 3.6-4. 8 Not Available [facility] ([facility]) [address] [place], [address], 04/02/2019 13:08:39 04/01/20 19 04/02/2019 CMP, serum or plasm a globulin, total 1.9 g/dL 1.5-4. 5 Not Available [facility] ([facility]) [address] [place], [address], 04/02/2019 13:08:39 04/01/20 19 04/02/2019 CMP, serum or plasm a A/G ratio 2.4 1.2-2. 2 above high normal Not Available [facility] ([facility]) [address] [place], [address], 04/02/2019 13:08:39 04/01/20 19 04/02/2019 CMP, serum or plasm a bilirubin, total 0.4 mg/dL 0.0-1. 2 Not Available [facility] ([facility]) [address] [place], [address], 04/02/2019 13:08:39 04/01/20 19 04/02/2019 CMP, serum or plasm a alkaline phosphatase 77 IU/L 39-117 Not Available [facility] ([facility]) [address] [place], [address], 04/02/2019 13:08:39 04/01/20 19 04/02/2019 CMP, serum or plasm a AST (SGOT) 14 IU/L 0-40 Not Available [facility] ([facility]) [address] [place], [address], 04/02/2019 13:08:39 04/01/20 19 04/02/2019 CMP, serum or plasm a ALT (SGPT) 17 IU/L 0-44 Not Available [facility] ([facility]) [address] [place], [address], 04/02/2019 13:08:39 04/01/20 19 04/02/2019 CBC WBC 6.0 x10e3 /uL 3.4-10 .8 Not Available [facility] ([facility]) [address] [place], [address], 04/02/2019 13:08:40 04/01/20 19 04/02/2019 CBC RBC 4.81 x10e6 /uL 4.14-5 .80 Not Available [facility] ([facility]) [address] [facility], [place], [address], 04/02/2019 13:08:40 04/01/20 19 04/02/2019 CBC hemoglobin 14.4 g/dL 13.0-1 7.7 Not Available [facility] ([facility]) [address] [place], [address], 04/02/2019 13:08:40 04/01/20 19 04/02/2019 CBC hematocrit 42.3 % 37.5-5 1.0 Not Available [facility] ([facility]) [address] [place], [address], 04/02/2019 13:08:40 04/01/20 19 04/02/2019 CBC MCV 88 fL 79-97 Not Available [facility] ([facility]) [address] [place], [address], 04/02/2019 13:08:40 04/01/20 19 04/02/2019 CBC MCH 29.9 pg 26.6-3 3.0 Not Available [facility] ([facility]) [address] [place], [address], 04/02/2019 13:08:40 04/01/20 19 04/02/2019 CBC MCHC 34.0 g/dL 31.5-3 5.7 Not Available [facility] ([facility]) [address] [place], [address], 04/02/2019 13:08:40 04/01/20 19 04/02/2019 CBC RDW 13.1 % 12.3-1 5.4 Not Available [facility] ([facility]) [address] [place], [address], 04/02/2019 13:08:40 04/01/20 19 04/02/2019 CBC platelets 214 x10e3 /uL 150-45 0 Not Available [facility] ([facility]) [address] [facility], [place], [address], 04/02/2019 13:08:40 04/01/20 19 04/02/2019 CBC NRBC HEALTH SAFETY ENGINEER Not Available [facility] ([facility]) [address] [place], [address], 04/02/2019 13:08:40 04/01/20 19 04/02/2019 lipid panel , serum cholesterol, total 216 mg/dL 100-19 9 above high normal Not Available [facility] ([facility]) [address] [facility], [place], [address], 04/02/2019 13:08:41 04/01/20 19 04/02/2019 lipid panel , serum triglyceride s 259 mg/dL 0-149 above high normal Not Available [facility] ([facility]) [address] [place], [address], 04/02/2019 13:08:41 04/01/20 19 04/02/2019 lipid panel , serum HDL cholesterol 28 mg/dL >39 below low normal Not Available [facility] ([facility]) [address] [place], [address], 04/02/2019 13:08:41 04/01/20 19 04/02/2019 lipid panel , serum VLDL cholesterol audrey 52 mg/dL 5-40 above high normal Not Available [facility] ([facility]) [address] [place], [address], 04/02/2019 13:08:41 04/01/20 19 04/02/2019 lipid panel , serum LDL cholesterol calc 136 mg/dL 0-99 above high normal Not Available [facility] ([facility]) [address] [facility], [place], [address], 04/02/2019 13:08:41 04/01/20 19 04/02/2019 lipid panel , serum comment: HEALTH SAFETY ENGINEER Not Available [facility] ([facility]) [address] [facility], [place], [address], 04/02/2019 13:08:41 04/01/20 19 04/02/2019 PSA, serum or plasm a prostate specific Ag, serum 0.4 NG/mL 0.0-4. 0 Ion ECLIA metho dolog y. Accor ding to [...] prese nce or absen ce of harriet hannah se. Not Available [facility] ([facility]) [address] [facility], [place], [address], 04/02/2019 13:08:41 04/01/20 19 04/02/2019 PSA, serum or plasm a pdf . Not Available [facility] ([facility]) [address] [facility], [place], [address], 04/02/2019 13:08:41 04/01/20 19 04/02/2019 cardi ovasc ular asses sment panel , serum interpretati on Note Suppl ement al repor t is avail able. Not Available [facility] ([facility]) [address] [facility], [place], [address], 04/02/2019 13:08:42 04/01/20 19 04/02/2019 lester carlton panel , serum pdf image . Not Available [facility] ([facility]) [address] [facility], [place], [address], 04/02/2019 13:08:42 04/01/20 19 04/01/2019 HbA1c (hemo globi n A1c), blood HbA1c 5.7 Not Available In-Office Order Internal Use Only DO Not Attach Compendium DO Not Attach Compendium, Do Not Delete/merge, [id number] 04/01/2019 10:25:35 03/09/2003/10/2020 CMP, serum or plasm a glucose 83 mg/dL 65-99 Not Available [facility] ([facility]) [address] [facility], [place], [address], 03/10/2020 07:11:16 03/09/2003/10/2020 CMP, serum or plasm a BUN 16 mg/dL 8-27 Not Available [facility] ([facility]) [address] [facility], [place], [address], 03/10/2020 07:11:16 03/09/20 20 03/10/2020 CMP, serum or plasm a creatinine 0.89 mg/dL 0.76-1 .27 Not Available [facility] ([facility]) [address] [facility], [place], [address], 03/10/2020 07:11:16 03/09/2003/10/2020 CMP, serum or plasm a eGFR if nonafricn AM 92 mL/mi n/1.7 3 >59 Not Available [facility] ([facility]) [address] [place], [address], 03/10/2020 07:11:16 03/09/20 20 03/10/2020 CMP, serum or plasm a eGFR if africn AM 106 mL/mi n/1.7 3 >59 Not Available [facility] ([facility]) [address] [place], [address], 03/10/2020 07:11:16 03/09/2003/10/2020 CMP, serum or plasm a BUN/creatini ne ratio 18 10-24 Not Available [facility] ([facility]) [address] [facility], [place], [address], 03/10/2020 07:11:16 03/09/2003/10/2020 CMP, serum or plasm a sodium 142 mmol/ L 134-14 4 Not Available [facility] ([facility]) [address] [facility], [place], [address], 03/10/2020 07:11:16 03/09/2003/10/2020 CMP, serum or plasm a potassium 4.5 mmol/ L 3.5-5. 2 Not Available [facility] ([facility]) [address] [facility], [place], [address], 03/10/2020 07:11:16 03/09/2003/10/2020 CMP, serum or plasm a chloride 106 mmol/ L 96-106 Not Available [facility] ([facility]) [address] [facility], [place], [address], 03/10/2020 07:11:16 03/09/2003/10/2020 CMP, serum or plasm a carbon dioxide, total 25 mmol/ L - Not Available [facility] ([facility]) [address] [place], [address], 03/10/2020 07:11:16 03/09/2003/10/2020 CMP, serum or plasm a calcium 9.2 mg/dL 8.6-10 .2 Not Available [facility] ([facility]) [address] [place], [address], 03/10/2020 07:11:16 03/09/2001 0303/10/2020 CMP, serum or plasm a protein, total 6.7 g/dL 6.0-8. 5 Not Available [facility] ([facility]) [address] [place], [address], 03/10/2020 07:11:16 03/09/20 20 03/10/2020 CMP, serum or plasm a albumin 4.5 g/dL 3.8-4. 8 Not Available [facility] ([facility]) [address] [place], [address], 03/10/2020 07:11:16 03/09/2003/10/2020 CMP, serum or plasm a globulin, total 2.2 g/dL 1.5-4. 5 Not Available [facility] ([facility]) [address] [place], [address], 03/10/2020 07:11:16 03/09/2003/10/2020 CMP, serum or plasm a A/G ratio 2.0 1.2-2. 2 Not Available [facility] ([facility]) [address] [place], [address], 03/10/2020 07:11:16 03/09/2003/10/2020 CMP, serum or plasm a bilirubin, total 0.3 mg/dL 0.0-1. 2 Not Available [facility] ([facility]) [address] [place], [address], 03/10/2020 07:11:16 03/09/2003/10/2020 CMP, serum or plasm a alkaline phosphatase 79 IU/L 39-117 Not Available [facility] ([facility]) [address] [place], [address], 03/10/2020 07:11:16 03/09/2003/10/2020 CMP, serum or plasm a AST (SGOT) 11 IU/L 0-40 Not Available [facility] ([facility]) [address] [place], [address], 03/10/2020 07:11:16 03/09/2003/10/2020 CMP, serum or plasm a ALT (SGPT) 16 IU/L 0-44 Not Available [facility] ([facility]) [address], [place], [address], 03/10/2020 07:11:16 03/09/2003/10/2020 CBC WBC 7.5 x10e3 /uL 3.4-10 .8 Not Available [facility] ([facility]) [address] [facility] [place], [address], 03/10/2020 07:11:17 03/09/2003/10/2020 CBC RBC 4.74 x10e6 /uL 4.14-5 .80 Not Available [facility] ([facility]) [address] [facility], [place], [address], 03/10/2020 07:11:17 03/09/2003/10/2020 CBC hemoglobin 14.6 g/dL 13.0-1 7.7 Not Available [facility] ([facility]) [address] [place], [address], 03/10/2020 07:11:17 03/09/2003/10/2020 CBC hematocrit 41.3 % 37.5-5 1.0 Not Available [facility] ([facility]) [address] [facility], [place], [address], 03/10/2020 07:11:17 03/09/2003/10/2020 CBC MCV 87 fL 79-97 Not Available [facility] ([facility]) [address] [place], [address], 03/10/2020 07:11:17 03/09/2003/10/2020 CBC MCH 30.8 pg 26.6-3 3.0 Not Available [facility] ([facility]) [address] [facility], [place], [address], 03/10/2020 07:11:17 03/09/2003/10/2020 CBC MCHC 35.4 g/dL 31.5-3 5.7 Not Available [facility] ([facility]) [address] [place], [address], 03/10/2020 07:11:17 03/09/2003/10/2020 CBC RDW 12.2 % 11.6-1 5.4 Not Available [facility] ([facility]) [address] [place], [address], 03/10/2020 07:11:17 03/09/2003/10/2020 CBC platelets 216 x10e3 /uL 150-45 0 Not Available [facility] ([facility]) [address] [place], [address], 03/10/2020 07:11:17 03/09/2003/10/2020 CBC NRBC HEALTH SAFETY ENGINEER Not Available [facility] ([facility]) [address] [place], [address], 03/10/2020 07:11:17 03/09/2003/10/2020 lipid panel , serum cholesterol, total 210 mg/dL 100-19 9 above high normal Not Available [facility] ([facility]) [address] [place], [address], 03/10/2020 07:11:18 03/09/2003/10/2020 lipid panel , serum triglyceride s 256 mg/dL 0-149 above high normal Not Available [facility] ([facility]) [address] [place], [address], 03/10/2020 07:11:18 03/09/2003/10/2020 lipid panel , serum HDL cholesterol 31 mg/dL >39 below low normal Not Available [facility] ([facility]) [address] [place], [address], 03/10/2020 07:11:18 03/09/20 20 03/10/2020 lipid panel , serum VLDL cholesterol audrey 46 mg/dL 5-40 above high normal Not Available [facility] ([facility]) [address] [facility], [place], [address], 03/10/2020 07:11:18 03/09/20 20 03/10/2020 lipid panel , serum LDL chol calc ([facility]) 133 mg/dL 0-99 above high normal Not Available [facility] ([facility]) [address] [facility], [place], [address], 03/10/2020 07:11:18 03/09/2003/10/2020 lipid panel , serum comment: HEALTH SAFETY ENGINEER Not Available [facility] ([facility]) [address] [facility], [place], [address], 03/10/2020 07:11:18 03/09/20 20 03/10/2020 cardi ovasc ular asses sment panel , serum interpretati on Note Suppl ement al repor t is avail able. Not Available [facility] ([facility]) [address] [facility], [place], [address], 03/10/2020 07:11:18 03/09/2003/10/2020 cardi ovasc ular asses sment panel , serum pdf . Not Available [facility] ([facility]) [address] [facility], [place], [address], 03/10/2020 07:11:18 03/09/2003/09/2020 HbA1c (hemo globi n A1c), blood HbA1c 5.6 Not Available In-Office Order Internal Use Only DO Not Attach Compendium DO Not Attach Compendium, Do Not Delete/merge, [id number] 03/09/2020 11:25:26 03/18/20 19 03/18/2019 alexa march am No observ [facility]ion [facility] [address] [place], [address], 03/20/2019 16:18:14 03/19/20 19 03/17/2019 XR, chest , 2 view No observ ation record ed. jnanney Not Available 2018 11:30:23 04/04/20 20 04/01/2020 XR, lumba r spine No observ ation record ed. [facility] (Radiology) [address] [place], [address], 04/05/2020 09:51:04 Result Notes None recorded. Problems Name Problem SNOMED Code Status Onset Date Resolution Date Notes Provider Name and Address Organization Details Recorded Time Prediabetes 593380755 Completed 201809/16/2018 Tabatha Hendrix PA-C Attn: Maxi virgen,[address] [facility], [place], [address] [facility] [place] [facility] 9 14:59:09 Patient encounter status 466240179 Active 2018 Maritza Kilgore [place] null, [place] [facility] 0 14:37:58 Dysphagia 09566909 Active 2018 Maritza Kilgore [place], [place] [facility] 0 17:47:28 Asthma 873097989 Active Maritza Kilgore [place], [place] [facility] 0 17:47:28 Acute bronchitis 10243343 Active Maritza Kilgore [place], [place] [facility] 0 17:47:28 Hyperlipide sonya 28409815 Active Maritza Kilgore [place], [place] [facility] 0 17:47:28 Diabetes mellitus 57685434 Active Maritza Kilgore [place], [place] [facility] 0 17:47:28 Problem Notes None recorded. Procedures Surgical History Date Name Laterality Status Provider Name and Address Organization Details Recorded Time 9 colonoscopy completed Juana Batres [place] - [facility] 11/26/2018 10:14:23 Imaging Results None recorded. Procedure Notes None recorded. Medical Equipment None [...] t Available Vitals Date Recorded Body height Body mass index (BMI) Body weight Oxygen saturation Oxygen saturation in Arterial blood by Pulse oximetry Heart rate Systolic blood pressure Diastolic blood pressure Provider Name and Address Organization Details Last Updated DateTime 9 187.96 cm 38.1 kg/m2 645689. 93 g 93 % 93 % 84 /min 152 mm[Hg] 100 mm[Hg] Sophia Iraheta MA [facility] 9 12:25:29 Date Recorded Systolic blood pressure Diastolic blood pressure Provider Name and Address Organization Details Last Updated DateTime 03/09/2020 142 mm[Hg] 82 mm[Hg] Tabatha Hendrix PA-C Attn: Accounting,[address] [place], [address], [place] - [facility] 03/09/2020 11:05:42 Date Recorded Body height Body mass index (BMI) Body weight Body temperature Oxygen saturation Oxygen saturation in Arterial blood by Pulse oximetry Heart rate Systolic blood pressure Diastolic blood pressure Provider Name and Address Organization Details Last Updated DateTime 0 187.96 cm 36.6 kg/m2 109372. 83 g 98.1 [degF] 96 % 96 % 85 /min 148 mm[Hg] 90 mm[Hg] Julianne Jaime MA [facility] 0 10:46:36 Date Recorded Body height Body mass index (BMI) Body weight Oxygen saturation Oxygen saturation in Arterial blood by Pulse oximetry Heart rate Systolic blood pressure Diastolic blood pressure Provider Name and Address Organization Details Last Updated DateTime 9 187.96 cm 37.8 kg/m2 392104. 61 g 98 % 98 % 84 /min 176 mm[Hg] 84 mm[Hg] Sophia Iraheta MA [facility] 9 10:08:03 Social History Question Answer Notes LastModified by [employer] Details LastModified Time Tobacco Smoking Status Former Smoker Quit 25 years ago Bertha Horton MA [facility] 05/27/2015 17:41:33 What Is Your Level Of Caffeine Consumption? Occasional Information not available 03/09/2020 How Much Tobacco Do You Chew? None Information not available 03/09/2020 What Type Of Diet Are You Following? REGULAR Information not available 03/09/2020 Marital Status Informati on not available 03/09/2020 What Was The Date Of Your Most Recent Tobacco Screening? 03/29/2020 Information not available 03/29/2020 How Much Tobacco Do You Smoke? No [...] not available 09/16/2018 Sex: Unknown Functional Status Question Answer Note LastModified by [employer] Details LastModified Time What is your level of alcohol consumption? Occasional Information not available 03/09/2020 Do you or have you ever used smokeless tobacco? 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 Never used electronic cigarettes Information not available 03/09/2020 Mental Status None recorded. Family History Relationship Description Onset Age of this Age Resolved Age Notes LastModified by Organization Details LastModified Time Mother Diabetes mellitus [email or web address] Not available 11/2015 16:22:38 Mother Malignant neoplasm of ovary [email or web address] Not available 11/2015 16:22:38 Medical History Condition Response Cancer Y Hyperlipidemia Y Asthma Y Immunizations Vaccine Type Date Status Note Provider Nam e and Address Organization Details Recorded Time COVID-19, mRNA, LNP-S, PF, 100 mcg/0.5mL dose or 50 mcg/0.25mL dose 1 completed Not Available [facility] 07/10/2021 15:17:05 COVID-19, mRNA, LNP-S, PF, 100 mcg/0.5mL dose or 50 mcg/0.25mL dose 1 completed Not Available [facility] 07/10/2021 15:17:05 Influenza, split virus, quadrivalent, preservative 0 completed Julianne Jaime MA [facility] 03/09/2020 11:49:44 Past Encounters Encounter ID Performer Location Encounter Start Date Encounter Closed Date Diagnosis/Indication Diagnosis SNOMED-CT Code Diagnosis ICD10 Code Diagnosis Note [id number] Marek Abdi MD [facility] [address] [place] [address] 05/27/2015 17:23:25 05/27/2015 17:41:26 Asthma 180252239 J45.909 [id number] [facility] [address] [place] [address] 06/03/2015 10:33:36 06/03/2015 11:18:08 Asthma 646980370 J45.909 Acute bronchitis 4420358 2 J20.9 [id number] Tabatha Hendrix PA-C [facility] [address] [place] [address] 10/18/2015 16:13:58 10/18/2015 16:59:30 Asthma 100349070 J45.909 Adult heal th examination 624695105 Z00.00 [id number] Tabatha Hendrix PA-C [facility] [address] [place] [address] 10/19/2015 09:53:58 10/19/2015 10:31:57 Adult health examination 526554501 Z00.00 [id number] Toñito Boyer MD [facility] [address] [place] [address] 10/26/2015 10:03:46 10/26/2015 11:06:48 Hyperlipidemia 44336311 E78.5 Diabetes mellitus 205526 09 E11.9 [id number] Marek Abdi MD [facility] [address] [place] [address] 05/15/2016 13:44:06 05/15/2016 16:20:36 Acute bacterial sinusitis 85262081 J01.01 Asthma 350846831 J45.90 9 [id number] Marek Abdi MD [facility] [address] [place] [address] 09/06/2016 10:42:33 09/06/2016 13:30:11 Diabetes mellitus 40077170 E11.9 Essential hypertension 69301549 I10 Hyperlipidemia 60304394 E78.5 Asthma 624796125 J45.90 9 [id number] Marek Abdi MD [facility] [address] [place] [address] 09/14/2016 09:55:30 09/14/2016 11:12:05 Essential hypertension 65628739 I10 Hypertriglyceridemia 302 587532 E78.1 Gastroesop hageal reflux disease 239514597 K21.9 Hyperlipidemia 21932436 E78.5 [id number] Tabatha Hendrix PA-C [facility] [address] [place] [address] 03/18/2017 10:19:28 03/18/2017 15:23:55 Hyperlipidemia 54385723 E78.5 Moderate p ersistent asthma 954811274 J45.40 Screening for malignant neoplasm of colon 365842924 Z12.11 [id number] Tabatha Hendrix PA-C [facility] [address] [place] [address] 03/26/2017 10:26:35 03/26/2017 10:55:07 Diabetes mellitus 42440212 E11.9 [id number] Marek Abdi MD [facility] [address] [place] [address] 06/14/2017 09:52:24 06/14/2017 13:01:38 Asthma 160340032 J45.20 Moderate p ersistent asthma 634863365 J45.40 Diabetes mellitus 561692 09 E11.9 Hyperlipidemia 42459940 E78.5 Gastroesop hageal reflux disease without esophagitis 228263892 K21.9 Dyspnea on exertion 6084 5006 R06.09 [id number] Tabatha Hendrix PA-C [facility] [address] [place] [address] 03/13/2018 11:39:45 03/13/2018 13:45:55 Essential hypertension 57023514 I10 Screening for malignant neoplasm of colon 000559967 Z12.11 Abnormal weight 63844946 R63.5 [id number] Tabatha Hendrix PA-C [facility] [address] [place] [address] 09/16/2018 14:04:23 09/16/2018 15:48:11 Asthma 406838401 J45.20 Hyperlipidemia 11184747 E78.5 Diabetes mellitus 826026 09 E11.9 Mild inter mittent asthma 122259634 J45.20 [id number] Tabatha Hendrix PA-C [facility] [address] [place] [address] 09/23/2018 10:40:32 09/23/2018 12:03:05 Mixed hyperlipidemia 551943451 E78.2 Type 2 eligio betes mellitus without complication 462854349 E11.9 [id number] Tabatha Hendrix PA-C [facility] [address] [place] [address] 01/05/2019 11:25:14 01/06/2019 14:45:54 Esophageal dysphagia 59594679 R13.19 [id number] Tabatha Hendrix PA-C [facility] [address] [place] [address] 02/23/2019 11:45:46 02/23/2019 13:40:28 Tongue swelling 196463561 R22.0 [id number] Tabatha Hendrix PA-C [facility] [address] [place] [address] 04/01/2019 09:54:51 04/02/2019 15:03:15 Body mass index 30+ - obesity 480440791 Z68.37 Type 2 eligio betes mellitus without complication 776896073 E11.9 Screening for malignant neoplasm of prostate 811289825 Z12.5 [id number] Tabatha Hendrix PA-C [facility] [address] [place] [address] 09/08/2019 12:27:07 09/09/2019 03:29:45 Seasonal allergic rhinitis 076422280 J30.2 Acute bronchitis 9397373 2 J20.8 [id number] Marek Abdi MD [facility] [address] [place] [address] 03/09/2020 10:34:23 03/10/2020 15:35:54 Type 2 diabetes mellitus without complication 903019124 E11.9 Administra tion of influenza vaccine 14019302 Z23 Essential hypertension 82236527 I10 [id number] Marek Abdi MD [facility] [address] [place] [address] 03/29/2020 10:38:35 03/29/2020 18:10:44 External hemorrhoids 80250075 K64.4 Diabetes mellitus 971341 09 E11.9 Hyperlipidemia 87400356 E78.2 Spasm of m uscle of lower back 7428575530 6992238 M62.830 Health Concerns Section Related Observation LastModified by Organization Detai ls LastModified Time None Recorded Concern Status LastModified by Organization Details LastModified Time None Recorded Advance Directives Directive None Recorded Payers Insurance Date Sequence Insurance Name Policy Number Policy Larry Covered Member ID Larry Member ID Guarantor Name 03/29/2020 1 [facility] [id number] Isma Gonsalves [id number] Isma Gonsalves 09/08/2019 1 [facility] (PPO) [id number] Leydi Gonsalves [id number] Isma Gonsalves 05/18/2016 1 *SELF PAY* Ve rnvivian Gonsalves 10/18/2015 1 *SELF PAY* Ve rnon Brina 05/27/2015 SLIDING FEE SCHEDULE - DISCOUNT Isma Gonsalves 05/15/2016 1 [facility] (PPO) [id number] Isma Gonsalves [id number] Isma Gonsalves 10/18/2015 1 [facility] [place] [facility] [employer] - LOCAL FUND 36 (PPO) [id number] Isma Gonsalves [id number] Isma Gonsalves 09/16/2018 1 [facility] [id number] Isma Gonsalves [id number] Isma Gonsalves Notes Date Note Type Note Provider Name and Address Organization Details Recorded Time 02/23/2019 text/html has taken a drug combining ibuprophen and famotidine and has a problem with his tongue swelling..benadryl helped..denies rash.. Tabatha Hendrix PA-C Attn: [address] [place], [address], [facility] 02/23/2019 12:46:07 04/01/2019 text/html s/p surgery on tongue..needs labs..hx of diabetes Tabatha Hendrix PA-C Attn: [address] [place], [address], [facility] 04/01/2019 10:28:54 09/08/2019 text/html 3 weeks itchy ey es and sneezing...got some pseudophed with allergy meds... Tabatha Hendrix PA-C Attn: [address] [place], [address], [facility] 09/08/2019 14:48:26 03/09/2020 text/html Isma Gonsalves is [...] He states that his diet has been okay; trying to stay away from fried foods and bread. Patient reports his sleep has been good. He is tolerating all of his medications well with no complications. Denies urinary sxs, changes to his bowel patterns, chest pain, SOB, memory changes. NICHOLAS Betancourt, [facility] 03/09/2020 11:51:09 03/29/2020 text/html has a external h em with some bleeding...can feel it hanging...also has a pain shooting down back and wants a mri...was splitting wood... Tabatha Hendrix PA-C Attn: [address] [place], [address], [facility] 03/29/2020 18:01:50
[2024-10-23 10:39] LABS: Hemoglobin A1C 7.7 % (<5.7)
[2024-10-23 10:44] LABS: Alanine Aminotransferase 30 U/L (6-50); Albumin Level 4.4 g/dL (3.5-5.1); Alkaline Phosphatase 91 U/L (38-126); Anion Gap 8 mmol/L (4-12); Aspartate Amino Transferase 36 U/L (17-59); Bilirubin,Total 0.7 mg/dL (0.2-1.3); Blood Urea Nitrogen 15 mg/dL (9-20); Calcium 8.9 mg/dL (8.4-10.2); Carbon Dioxide 26 mmol/L (22-30); Chloride 105 mmol/L (98-107); Estimated Glomerular Filt Rate > 60; Glucose 250 mg/dL (65-110); Potassium 4.3 mmol/L (3.4-5.0); Sodium 139 mmol/L (137-145); Total Protein 7.2 g/dL (6.3-8.2)
== END 2024-10-23 09:58 | disposition home or self-care (01) ==
PROVIDERS: PCP Internal Medicine; Visit Provider Nurse Practitioner
DX: E11.9 Type 2 diabetes mellitus without complications (principal)
CPT/HCPCS: 36415; 80053; 83036

== ENCOUNTER 2024-12-10 08:17 | Outpatient (CLI) | payer MEDICARE, SELFPAY ==
--- OUTSIDE RECORDS SUMMARY | 2024-12-10 08:21 | XMS_ITS | Encounter Summary ---
Author Organization [facility] Address [address] [place] [address] Care Team Providers Care Metal Sponge Making Machine Operator Name Role Phone Unavailable Primary Care Provider Unavailabl e Encounter Details Date Type Department Care Team (Late st Contact Info) Description 01/04/2020 Lab Requisition [facility] DermPath Lab [address] [place] [address] Narayan Marti Jr., MD [address] [place] [address] Social History Tobacco Use Types Packs/Day Years Used Date Smoking Tobacco: Never Assessed Sex and Gender Information Value Date Recorded Sex Assigned at Not on file 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 Gender Identity Not on file Sexual Orientation Not on file documented as of this encounter Plan of Treatment Not on file documented as of this encounter Procedures Procedure Name Priority Date/Time Associated Diagnosis Comments DERMATOPATHOLOGY Routine 01/01/2020 12:0 0 AM CDT documented in this encounter Results * DERMATOPATHOLOGY (01/01/2020 12:00 AM CDT) Case Report Dermatopathology Report Case: [id number] Authorizing Provider: Narayan Marti Jr., MD Collected: 01/01/2020 12:00 AM Ordering Location: [facility] DermPath Lab Received: 01/04/2020 07:53 AM [...] specimen consists of a shave biopsy measuring [id number]. Jar 0. 0 2:31 PM CDT DERMATOPATHOLOGY [...] determined by the Dermatopathology Laboratory at [facility], directed by Dr. Tami Abreu. These tests need not be, and therefore are not, approved by the [place] Food and Drug Administration. The tests are used for clinical purposes. Billing Codes Specimen Charges Stain Charges 92150 1 0 2:31 PM CDT DERMATOPATHOLOGY LABORATORY Embedded Images 0 2:31 PM CDT DERMATOPATHOLOGY LABORATORY Pathology/Cytolog y TISSUE SPECIMEN FROM SKIN / Unknown 01/01/2020 01/04/2020 7:53 AM CDT us Narayan Marti Jr., MD LAB - PATHOLOGY/CYTOLOG Y ORDERABLES Final Result DERMATOPATHOLOGY LABORATORY [facility] - Department of Dermatology Hospital Attendant [address] [address], [facility] [phone] documented in this encounter Visit Diagnoses Not on filedocumented in this encounter
--- OUTSIDE RECORDS SUMMARY | 2024-12-10 08:21 | XMS_ITS | Clinical Summary ---
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 Gender Identity Not on file Sexual Orientation Not on file Last Filed Vital Signs Vital Sign Reading Time Taken Comments Blood Pressure 132/88 04/03/2019 10:11 AM PLANNING DIVISION SUPERINTENDENT Pulse 88 04/03/2019 10:11 AM PLANNING DIVISION SUPERINTENDENT Temperature 36.1 C (97 F) 04/03/2019 10:11 AM PLANNING DIVISION SUPERINTENDENT Respiratory Rate 20 04/03/2019 10:11 AM PLANNING DIVISION SUPERINTENDENT Oxygen Saturation 98% 04/03/2019 10:11 AM PLANNING DIVISION SUPERINTENDENT Inhaled Oxygen Concentration - - Weight 133.8 kg (295 lb) 04/03/2019 10:11 AM PLANNING DIVISION SUPERINTENDENT Height 188 cm (6' 2) 04/03/2019 10:11 AM PLANNING DIVISION SUPERINTENDENT Body Mass Index 37.88 04/03/2019 10:11 AM PLANNING DIVISION SUPERINTENDENT Plan of Treatment Health Maintenance Due Date Last Done Comments Hepatitis C Virus (HCV) Screening 1960 TdaP Immunization 1960 Cologuard 2003 Colonoscopy 2003 Colorectal Cancer Screening 2003 Immunochemical Fecal Occult Blood 2003 Pneumococcal Immunization (5 0+ years) (1 of 1 - PCV) 01/16/2008 Zoster Immunization (1 of 2) 01/16/2008 SARS-COV-2 Immunization ( - season) 2024 04/21/2021, 09/02/2020, 08/05/2020 Influenza Immunization (#1) 2025 03/09/2020 Respiratory Syncytial Virus (RSV) Immunization [...] age to complete this topic Care Teams Gaming Manager Relationship Specialty Start Date End Date Alexey Hendrix, [facility] [address] [place] [address] PCP - General Physician Sanitation Manager 06/17/17
--- OUTSIDE RECORDS SUMMARY | 2024-12-10 08:21 | XMS_ITS | Referral Summary ---
Author Organization [facility] Address [address] [place] [address] Care Team Providers Care Senior Java J2Ee Developer Name Role Phone Nain Barboza MD Unavailable [phone] Alexey Hendrix Unavailable [phone] Taz Cox DO Primary Care Provider [phone] Encounters Date Type Department Care Team Description 11/30/2024 3:45 PM CDT Office Visit [facility] Cardiology [address] [place] [address] Nain Barboza MD Hx of CABG (Primary Dx); Severe obesity (HCC); Need for lipid screening from Last 3 Months Allergies No known [...] carBAMazepine (TEGretol) 200 mg tablet 12/11/2022 Active clopidogreL (PLAVIX) 75 mg tablet TAKE 1 TABLET BY MOUTH EVERY DAY 90 tablet 2 05/04/2024 Active metoprolol (LOPRESSOR) 100 mg tablet TAKE 1 TABLET BY MOUTH TWICE A DAY 180 tablet 2 05/04/2024 Active atorvastatin (LIPITOR) 40 mg tablet TAKE 1 TABLET BY MOUTH EVERY DAY IN THE EVENING 90 tablet 3 10/28/2024 Active ezetimibe (ZETIA) 10 mg tablet Take 1 tablet (10 mg total) by mouth daily 90 tablet 2 11/30/2024 12/01/19 26 Active Active Problems Problem Noted Date Diagnosed Date Severe obesity 11/30/2024 Hx of CABG 12/07/2021 Aftercare following surgery of the circulatory s ystem 08/07/2021 CAD in [place] artery 07/03/2021 Dysphagia 01/07/2019 Overview (01/07/2019): Added automatically from request for surgery [id number] Encounter for screening colonoscopy 10/17/2018 Overview (10/17/2018): Added automatically from request for surgery [id number] Social History Tobacco Use Types Packs/Day Years [...] than three times a week 07/04/2021 Attends Restorationist Services Not on file 07/04 Active Member [...] on file 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 Gender Identity Not on file Sexual Orientation Not on file Last Filed Vital Signs Vital Sign Reading Time Taken Comments Blood Pressure 130/82 11/30/2024 3:50 PM CDT Pulse 81 11/30/2024 3:50 PM CDT Temperature 36.7 C (98 F) 07/10/2021 1:25 PM TRUCK GUARD Respiratory Rate 16 08/07/2021 8:23 AM CDT Oxygen Saturation 96% 11/30/2024 3:50 PM CDT Inhaled Oxygen Concentration - - Weight 130 kg (286 lb 9.6 oz) 11/30/2024 3:50 PM CDT Height 188 cm (6' 2) 11/30/2024 3:50 PM CDT Body Mass Index 36.8 11/30/2024 3:50 PM CDT Plan of Treatment Not on file Procedures Procedure Name Priority Date/Time Associated Diagnosis Comments POCT LIPID PANEL Routine 11/30/2024 3:44 PM CDT Need for lipid screening COLONOSCOPY 11/10/2018 11:47 AM CDT from Last 3 Months or Most Recently Relevant to Health Maintenance Results * (ABNORMAL) POCT lipid panel (11/30/2024 3:44 PM CDT) Cholesterol, POC 280 <200 MG/DL Comment:GLU = 267 Triglycerides, POC 650(A) <=149 mg/dL Cholesterol Total, POC 280(A) 30 - 199 mg/dL Capillary blood 11/30/2024 3 :44 PM CDT us Nain Barboza MD POINT OF CARE TEST ORDER DEBORAH Final Result * COLONOSCOPY (11/10/2018 11:47 AM CDT) Anatomical Region Laterality Modality Other Narrative Procedure Note Jose Nino MD - 11/10/2018 11:47 AM CDT [facility] Patient Name: Isma Gonsalves Procedure Date: 11/10/2018 11:47 AM Date of : 1960 Admit Type: Outpatient Age: 58 Gender: Male Attending MD: Jose Nino M.D. Room: [facility] ENDOSCOPY ROOM 1 Note Status: Addendum [...] passed under direct vision.The Pediatric Colonoscope PCF-H190L [id number] was introduced through the anus and advanced [...] 11:47 AM Procedure Code(s): --- Professional --- 27986, Colonoscopy, flexible; diagnostic, including collection of specimen(s) [...] in this report are preliminary and upon tool machinist reviewmay be revised to meet current compliance [...] Recently Relevant to Health Maintenance [facility] [place] A[place] MEDIC[place] Advance Directives For more information, please contact: [phone] * Full Code (Latest Code Status on File) Date Activated Date Inactivated Comments 07/03/2021 5:34 PM 07/10/2021 6:17 PM * Full Code Date Activated Date Inactivated Comments 01/21/2019 11:52 AM 01/21/2019 7:04 PM * Full Code Date Activated Date Inactivated Comments 01/21/2019 11:51 AM 01/21/2019 11:52 AM Care Teams Senior Java J2Ee Developer Relationship Specialty Start Date End Date Taz Cox DO [address] [place] [address] PCP - General Internal Medicine 08/03/21 Nain Barboza MD [address] [address] [address] Consulting Physician Cardiology 07/07/21 Alexey Hendrix PA [address] [place] [address] Referring Physician Family Practice 08/02/21
--- OUTSIDE RECORDS SUMMARY | 2024-12-10 08:21 | XMS_ITS | Clinical Summary ---
Author Organization [facility] Address [address] [place] [address] Care Team Providers Care Dental Laboratory Worker Name Role Phone Nain Barboza MD Unavailable [phone] Alexey Hendrix Unavailable [phone] Taz Cox DO Primary Care Provider [phone] Allergies No known active allergies Medications omeprazole [...] the circulatory s ystem 08/07/2021 CAD in [place] artery 07/03/2021 Dysphagia 01/07/2019 Overview (01/07/2019): Added automatically from request for surgery [id number] Encounter for screening colonoscopy 10/17/2018 Overview (10/17/2018): Added automatically from request for surgery [id number] Encounters Date Type Department Care Team Description 11/30/2024 3:45 PM CDT Office Visit 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] 2024 04/21/2021, 09/02/2020, 08/05/2020 Influenza Vaccine (#1) 2025 03/09/2020 Colon Cancer Screening-Colonoscopy 11/10/20282018 Colon Cancer [...] Nino MD - 11/10/2018 11:47 AM CDT [facility] Patient Name: Isma Gonsalves Procedure Date: 11/10/2018 11:47 AM Date of : 1960 Admit Type: Outpatient Age: 58 Gender: Male Attending MD: Jose Nino M.D. Room: [facility]COPY RO[facility] 1 Note Status: Addendum [...] passed under direct vision.The Pediatric Colonoscope PCF-H190L [id number] was introduced through the anus and advanced [...] 11:47 AM Procedure Code(s): --- Professional --- 96007, Colonoscopy, flexible; diagnostic, including collection of specimen(s) by brushing or washing, when performed (separateprocedure) Diagnosis Code(s): --- Professional --- Z12.11, Encounter for screening for malignant neoplasm of colon K64.8, Other hemorrhoids K57.30, Diverticulosis of large intestine without perforation orabscess without bleeding CPT copyright 2017 [employer]. All rights reserved. The codes documented in this report are preliminary and upon motion picture cameraman reviewmay be revised to meet current compliance requirements. Recognized by the [employer] for promoting quality [...] Relevant to Health Maintenance [facility] [place] [facility] MEDICARE Advance Directives For more information, please contact: [phone] * Full Code (Latest Code Status on File) Date Activated Date Inactivated Comments 07/03/2021 5:34 PM 07/10/2021 6:17 PM * Full Code Date Activated Date Inactivated Comments 01/21/2019 11:52 AM 01/21/2019 7:04 PM * Full Code Date Activated Date Inactivated Comments 01/21/2019 11:51 AM 01/21/2019 11:52 AM Care Teams Dental Laboratory Worker Relationship Specialty Start Date End Date Taz Cox DO [address] [place] [address] PCP - General Internal Medicine 08/03/21 Nain Barboza MD [address] [address] Consulting Physician Cardiology 07/07/21 Alexey Hendrix PA [address] [place] [address] Referring Physician Family Practice 08/02/21
--- OUTSIDE RECORDS SUMMARY | 2024-12-10 08:21 | XMS_ITS | Clinical Summary ---
Author Organization [facility] Address [address] [place] [address] Care Team Providers Care Weights And Measures Inspector Name Role Phone Unavailable Primary Care Provider Unavailabl e Source Comments [facility],non-owned Affiliates and Associated Physician Practices is amultiple site organization consisting of ambulatory clinics and hospital sitesin [place], [place], [place] and [place]. This disclosure is being madepursuant to the Care Everywhere program and may not contain all information available regarding this patient. 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
--- OUTSIDE RECORDS SUMMARY | 2024-12-10 08:22 | XMS_ITS | Encounter Summary ---
Author Organization [facility] Address [facility] [facility] [place] [address] Care Team Providers Care Sieve Maker Name Role Phone Unavailable Primary Care Provider Unavailabl e Encounter Details Date Type Department Care Team (Late st Contact Info) Description 10/27/2020 Lab Requisition [facility] DermPath Lab [address] [place] [address] Narayan Marti Jr., MD [address] [place] [address] Social History Tobacco Use Types Packs/Day Years Used Date Smoking Tobacco: Never Assessed Sex and Gender Information Value Date Recorded Sex Assigned at Not on file Legal 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 BUSINESS 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 Gender Identity Not on file Sexual Orientation Not on file documented as of this encounter Plan of Treatment Not on file documented as of this encounter Procedures Procedure Name Priority Date/Time Associated Diagnosis Comments DERMATOPATHOLOGY Routine 10/26/2020 3:33 AM CDT documented in this encounter Results * DERMATOPATHOLOGY (10/26/2020 3:33 AM CDT) Case Report Dermatopathology Report Case: [id number] Authorizing Provider: Narayan Marti Jr., MD Collected: 10/26/2020 03:33 AM Ordering Location: [facility] DermPath Lab Received: 10/27/2020 08:03 AM [...] specimen consists of a shave biopsy measuring [id number]. Jar 0. Specimen B: Received is one formalin filled container labeled with the patient's name and designated right posterior shoulder. The specimen consists of a shave biopsy measuring [id number]. Jar 0. 12:21 PM CDT DERMATOPATHOLOGY LABORATORY [...] characteristic determined by the Dermatopathology Laboratory at [facility], directed by Dr. Tami Abreu. These tests need not be, and therefore are not, approved by the [place] Food and Drug Administration. The tests are used for clinical purposes. Billing Codes Specimen Charges Stain Charges 63018 [id number] 1 1 12:21 PM CDT DERMATOPATHOLOGY LABORATORY Embedded Images 12:21 PM CDT DERMATOPATHOLOGY LABORATORY Pathology/Cytology TISSUE SPECIMEN FROM SKIN / Unknown 10/26/2020 3:33 AM CDT 10/27/2020 8:03 AM CDT Miscellaneous samples (specimen) TISSUE SPECIMEN FROM SKIN / Unknown 10/26/2020 3:33 AM CDT 10/27/2020 8:03 AM CDT us Narayan Marti Jr., MD LAB - PATHOLOGY/CYTOLOG Y ORDERABLES Final Result DERMATOPATHOLOGY LABORATORY [facility] - Department of Dermatology [facility] [address] [place] [address], [address] [phone] documented in this encounter Visit Diagnoses Not on filedocumented in this encounter
--- NOTE | 2025-01-04 13:24 | WPDSLEEPSTUD ---
Sleep Study Date of Study: 12/10/24 Ordering Provider: Debra Villagomez NP Interpreting Physician: Angeline Jones DO Sleep Study Type: Split Polysomnogram Height: 1.93 m Weight: 129.274 kg Body Mass Index: 34.7 Neck Circumference (inches): 18.5 [place]: 13 Reason for Sleep Study Daytime hypersomnia Sleep History The patient is an 81-year-old female who had a sleep study ordered by her scrap crane operator for evaluation of sleep apnea. The patient rarely awakens from sleep short of breath. She rarely awakens at night with heartburn, belching, or cough. She denies snoring. She rarely has trouble sleeping when she has a cold. She denies waking up gasping for air throughout the night. She rarely has breathing problems at night observed by herself or others. She denies sweating excessively at night. She denies having heart palpitations or irregular heartbeats during the night. She occasionally falls asleep during the day but never while driving. She denies sleep paralysis, cataplexy, and hypnagogic-hypnopompic hallucinations. She denies having trouble at school or work due to sleepiness. She denies feeling afraid of going to sleep. She rarely has nightmares. She occasionally remembers her dreams. She rarely has thoughts racing through her mind. She denies feeling sad or depressed. She rarely has anxiety. She rarely has muscular tension. She denies noticing parts of her body jerk. She rarely has crawling and aching feelings in her legs but occasionally has leg pain during the night. She denies grinding her teeth during sleep and denies awakening with morning jaw pain. She is rarely bothered by pain during the day, but never awakened by pain during the night. She rarely wakes up feeling stiff in the morning. She occasionally wakes up with sore or aching muscles. She occasionally wakes up with pain in the neck, spine, and other joints. She goes to bed between 9 to 10 PM on weekdays and between 10 to 11 PM on the weekends. It takes her 10 to 20 minutes to fall asleep. She wakes up 1 to 2 times throughout the night for unknown reasons but is able to fall back asleep within 15 minutes. She wakes up between 6 to 6:30 AM every morning. She typically gets 9 hours of sleep per night. She will stay in bed for 10 minutes after waking up in the morning. She currently lives with her . She denies consuming any caffeinated beverages within 2 hours of bedtime. She denies engaging in physical exercise before bedtime. She denies watching television before falling asleep. She will take naps in the afternoon or the evening, but they are not refreshing. She consumes 1 caffeinated beverage per day. She is a former smoker. She denies alcohol and recreational drug use. [facility] Past Medical History Medical History Memory changes Acute costochondritis Type 2 diabetes mellitus Gastroesophageal reflux disease Hyperlipidemia Hypertension Skin cancer Arthritis Asthma Surgical History Surgical History Status post double vessel coronary artery bypass July 2021 Status post surgical removal of malignant neoplasm of skin History of colonoscopy Status post tendon repair Right hand History of repair of right rotator cuff History of back surgery Family History Family History Father Alcohol abuse Skin cancer Mother Diabetes mellitus Pancreatic cancer Sibling Cancer multiple siblings/half siblings with cancers of unknown type Sibling Malignant neoplasm of prostate Sibling Cancer Sibling Cancer Social History Social History Social History: Surrogate decision maker: Leatha Roque or Melanie Ambriz, daughters. Code status: Full code. Smoking status: Former smoker Alcohol intake: current Drinks per week: 2 Substance use: never Substance use type: does not use Last use: 4 beers once per week Do You Feel Safe in your Home?: Yes Lack of Transportation: No Lack of Food: Never True Current Housing: I Have Housing Concerned About Future Housing: No Difficulty Paying Gas/Electric Bills: No Difficulty Paying for Meds: No Currently Unemployed: No Education: Trade/Vocational Certificate Difficulty w/ Childcare or Family Care: No Living arrangements: with family Additional living arrangements comments: with sp Occupation/Education: occupation 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 Gender identity (if verbalized by the patient): Male Spiritual care concerns: No Medications Home Medications ?Medication ?Instructions ?Recorded ?Confirmed ?Type aspirin 81 mg tablet,delayed 81 mg PO DAILY 03/07/21 12/01/24 History release (Adult Low Dose Aspirin) clopidogrel 75 mg tablet (Plavix) 75 mg PO DAILY 07/11/21 12/01/24 History metoprolol tartrate 100 mg tablet 100 mg PO BID 07/11/21 12/01/24 History atorvastatin 40 mg tablet 40 mg PO QHS 09/28/21 12/01/24 History omega-3 fatty acids 1,000 mg 2,000 mg PO BID 03/26/23 12/01/24 History capsule colchicine 0.6 mg tablet 0.6 mg PO .COMPLEX #15 tabs 11/19/23 12/01/24 Rx carbamazepine 200 mg tablet See Rx Instructions .Route 02/06/24 12/01/24 Rx .COMPLEX #180 tabs triamcinolone acetonide 0.1 % 1 applic topical BID PRN rash #30 05/26/24 12/01/24 Rx topical cream grams hydrochlorothiazide 12.5 mg tablet 12.5 mg PO DAILY #90 tabs 10/28/24 12/01/24 Rx montelukast 10 mg tablet 10 mg PO DAILY #90 tabs 10/28/24 12/01/24 Rx omeprazole 40 mg capsule,delayed 40 mg PO DAILY #90 caps 10/28/24 12/01/24 Rx release albuterol sulfate 90 mcg/actuation 1 inh inhalation Q4H PRN shortness 12/01/24 12/01/24 Rx aerosol inhaler of breath or wheezing #8.5 grams ezetimibe 10 mg tablet (Zetia) 10 mg PO DAILY 12/01/24 12/01/24 History icosapent ethyl 1 gram capsule 2 g PO BID 12/01/24 12/01/24 History (Vascepa) metformin 500 mg tablet 500 mg PO BID #180 tabs 12/01/24 12/01/24 Rx blood sugar diagnostic (OneTouch #100 ea 12/31/24 Rx Ultra Test strips) blood-glucose meter (OneTouch #1 ea 12/31/24 Rx Ultra2 Meter) lancets 30 gauge (OneTouch #100 ea 12/31/24 Rx UltraSoft 2 Lancet) Sleep Procedure A full night split using the [employer] multi-channel system recorded the standard physiologic parameters including EEG, EOG, submentalis EMG, anterior tibialis EMG, EKG, body position, nasal and oral airflow using nasal pressure sensor and thermistor.? Respiratory parameters of chest and abdominal movements were recorded with Respiratory Inductance Plethysmography belts. Oxygen saturation was recorded by pulse oximetry. Video monitoring was also performed. Sleep stages, periodic limb movements, and EEG arousals were scored in 30 second epochs according to the criteria of the AASM Scoring Manual. The Apnea-Hypopnea Index was calculated using CMS guidelines for definition of hypopnea with 4% O2 desaturations while scoring respiratory events. Sleep Architecture During the diagnostic portion of the study, the total recording time was 163.1 minutes. The total sleep time was 121.5 minutes. Sleep latency was 25.1 minutes.? REM sleep was not achieved during this portion of the study. Sleep Efficiency was 74.5%. The patient had 8 awakenings for an awakening index of 4.0. Wake after sleep onset time was 16.5 minutes. The patient spent 17.5 minutes, 14.4% of total sleep time in Stage N1. The patient spent 104.0 minutes, 85.6% in Stage N2. The patient spent 0.0 minutes, 0.0% in Stage N3. The patient spent 0.0 minutes, 0.0% in Stage REM sleep. At 12:24:38 AM the patient was placed on PAP treatment and was titrated at pressures ranging from 5 cm H2O up to 11 cm H20. During the treatment portion of the study, the total recording time was 335.6 minutes.? The total sleep time was 297.5 minutes. Sleep latency was 1.0 minutes. REM latency was 5.5 minutes. Sleep Efficiency was 88.6%. Wake after Sleep Onset time was 37.5 minutes. The patient spent 26.0 minutes, 8.7% of total sleep time in Stage N1. The patient spent 198.0 minutes, 66.6% in Stage N2. The patient spent 0.0 minutes, 0.0% in Stage N3. The patient spent 73.5 minutes, 24.7% in Stage REM. Respiratory Analysis During the diagnostic portion of the study, the patient had 20 hypopneas for an overall Apnea Hypopnea Index of 8.9 events per hour. The REM Apnea Hypopnea Index was 0. The NREM Apnea Hypopnea Index was 8.9. The patient had a Central Apnea Hypopnea Index of 0. There was no evidence of Pedro-Albright Respirations. During the treatment portion of the study, the patient had 14 hypopneas and 1 central apnea for an overall Apnea Hypopnea Index of 3.0 events per hour. The REM Apnea Hypopnea Index was 10.6. The NREM Apnea Hypopnea Index was 0.5. The patient had a Central Apnea Hypopnea Index of 0.2. There was no evidence of Pedro-Albright Respirations. The patient was started on CPAP 5 cm H2O and was titrated to CPAP 11 cm H2O due to hypopneas. The patient was able to fall asleep starting on CPAP 5 cm H2O. The patient was able to achieve REM sleep starting on CPAP 5 cm H2O. On CPAP 9 cm H2O, the patient spent 122 minutes in NREM and 7.5 minutes in REM with 1 hypopnea, resulting in an AHI of 0.5. On CPAP 11 cm H2O, the patient spent 27.5 minutes in NREM and 14.5 minutes in REM with 1 central apnea and 2 hypopneas, resulting in an AHI of 4.3. The patient had a sleep efficiency of 90.9% on 9 cm H2O and 76.4% on 11 cm H2O. Arousals During the diagnostic portion of the study, there were a total of 53 arousals for an arousal index of 26.2.? There were 19 respiratory arousals for an index of 9.4. There were 19 periodic limb movement arousals for an index of 9.4.? There was 1 isolated limb movement arousal for an index of 0.5. There were 14 spontaneous arousals for an index of 6.9. During the treatment portion of the study, there were a total of 81 arousals for an index of 16.3.? There were 10 respiratory arousals for an index of 2.0. There were 7 periodic limb movement arousals for an index of 1.4.? There were 9 isolated limb movement arousals for an index of 1.8. There were 55 spontaneous arousals for an index of 11.1. Periodic Limb Movements During the diagnostic portion of the study, the patient had 2 isolated limb movements with an index of 1.0. The patient had 154 periodic limb movements with an index of 76.0, which is elevated (normal < 15). The patient had a total of 156 limb movements with a total limb movement index of 77.0. During the treatment portion of the study, the patient had 17 isolated limb movements with an index of 3.4. The patient had 108 periodic limb movements with an index of 21.8, which is elevated (normal < 15). The patient had a total of 125 limb movements with a total limb movement index of 25.2. Oximetry Data During the diagnostic portion of the study, the patient had an average oxygen saturation of 93.4% in wake with a minimum oxygen saturation of 89% and a maximum oxygen saturation of 98%. The patient had an average oxygen saturation of 93.1% in sleep with a minimum oxygen saturation of 86.0% and a maximum oxygen saturation of 98.0%. The patient had 35 oxygen desaturations resulting in an Oxygen Desaturation Index of 17.3. The patient spent 0.3 minutes, 0.2% of total sleep time with an oxygen saturation less than 88%. During the treatment portion of the study, the patient had an average oxygen saturation of 93.7% in wake with a minimum oxygen saturation of 89.0% and a maximum oxygen saturation of 99.0%. The patient had an average oxygen saturation of 93.4% in sleep with a minimum oxygen saturation of 89.0% and a maximum oxygen saturation of 99.0%. The patient had 48 oxygen desaturations resulting in an Oxygen Desaturation Index of 9.7. The patient spent 0 minutes of total sleep time with an oxygen saturation less than 88%. Snoring Profile Mild to moderate snoring was present in the baseline portion of the study. The snoring resolved once the patient was titrated to CPAP 9 cm H2O. Cardiac Profile The EKG lead showed normal sinus rhythm. No arrhythmias or PVCs were seen. During the diagnostic portion of the study, the average pulse rate was 85.0 bpm.? The minimum pulse rate was 72.0 bpm. The maximum pulse rate was 102.0 bpm. During the treatment portion of the study, the average pulse rate was 76.4 bpm.? The minimum pulse rate was 66.0 bpm. The maximum pulse rate was 100.0 bpm. EEG Profile No signs of seizure activity seen. Assessment and Plan Assessment and Plan (1) RICHMOND (obstructive sleep apnea): Code(s): G47.33 - Obstructive sleep apnea (adult) (pediatric) Status: Acute Assessment and Plan: In the baseline portion of the study, the patient had an overall AHI of 8.9 with desaturation down to 86%. This is consistent with mild sleep apnea. Due to the patient's hypertension, he qualifies for treatment. The patient was started on CPAP 5 cm H2O and was titrated to CPAP 11 cm H2O due to hypopneas. I recommend that the patient be prescribed CPAP 10 cm H2O, size medium AirTouch N30i nasal mask, CPAP filters/tubing and heated humidity. This should be used with all episodes of sleep.? Compliance should be reviewed within 31-90 days of starting therapy for usage greater than 4 hours per night greater than 70% of the nights. The patient should be asked about symptoms such as?excessive daytime sleepiness, quality of sleep, decreased nocturia, increased?mental functioning such as memory, mood, and concentration. While the patient had a significant amount of periodic limb movements, the frequency drastically decreased once the patient was titrated to the optimal pressure setting. Data The data obtained during this sleep study is adequate for interpretation. Certification This sleep study has been reviewed by a board certified sleep medicine physician.
[2025-01-05 11:41] VITALS: BMI 34.7
== END 2024-12-11 07:11 | disposition home or self-care (01) ==
LOC: ANHCSM 08:18
PROVIDERS: PCP Internal Medicine; Visit Provider Nurse Practitioner
DX: R40.0 Somnolence (principal); G47.9 Sleep disorder, unspecified; G47.33 Obstructive sleep apnea (adult) (pediatric)
CPT/HCPCS: 95811

== ENCOUNTER 2025-04-12 10:00 | Outpatient (CLI) | payer MEDICARE, SELFPAY ==
--- OUTSIDE RECORDS SUMMARY | 2025-04-12 11:07 | XMS_ITS | Encounter Summary ---
Author Organization [facility] Address [address] [facility] [place] [address] Care Team Providers Care Production Material Coordinator Name Role Phone Unavailable Primary Care Provider Unavailabl e Encounter Details Date Type Department Care Team (Late st Contact Info) Description 01/04/2020 Lab Requisition 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 DermPath Lab Received: 01/04/2020 07:53 AM [...] specimen consists of a shave biopsy measuring [id number]. Jar 0. 0 2:31 PM CDT DERMATOPATHOLOGY [...] characteristic determined by the Dermatopathology Laboratory at [facility], directed by Dr. Tami Abreu. These tests need not be, and therefore are not, approved by the [place] Food and Drug Administration. The tests are used for clinical purposes. Billing Codes Specimen Charges Stain Charges [id number] 1 0 2:31 PM CDT DERMATOPATHOLOGY LABORATORY Embedded Images 0 2:31 PM CDT DERMATOPATHOLOGY LABORATORY Pathology/Cytolog y TISSUE SPECIMEN FROM SKIN / Unknown 01/01/2020 01/04/2020 7:53 AM CDT us Narayan Marti Jr., MD LAB - PATHOLOGY/CYTOLOG Y ORDERABLES Final Result DERMATOPATHOLOGY LABORATORY [facility] - Department of Dermatology [facility] [facility] [place] [address], [facility] [phone] documented in this encounter Visit Diagnoses Not on filedocumented in this encounter
--- OUTSIDE RECORDS SUMMARY | 2025-04-12 11:07 | XMS_ITS | Clinical Summary ---
Author Organization [facility] [employer] Address [address] [place] [address] Care Team Providers Care Whizzer Operator Name Role Phone Unavailable Primary Care Provider Unavailabl e Source Comments [facility] [employer],non-owned Affiliates and Associated Physician Practices is amultiple site organization consisting of ambulatory clinics and hospital sitesin [place], [place], [place] and [place]. This disclosure is being madepursuant to the Care Everywhere program and may not contain all information available regarding this patient. 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
--- OUTSIDE RECORDS SUMMARY | 2025-04-12 11:07 | XMS_ITS | Encounter Summary ---
Author Organization [facility] Address [facility] [place] [address] Care Team Providers Care Utilization Review Rn Name Role Phone Unavailable Primary Care Provider Unavailabl e Encounter Details Date Type Department Care Team (Late st Contact Info) Description 10/27/2020 Lab Requisition [facility] DermPath Lab [address] [facility] [place] [address] Narayan Marti Jr., MD [address] [address] [place] [address] Social History Tobacco Use Types Packs/Day Years Used Date Smoking Tobacco: Never Assessed Sex and Gender Information Value Date Recorded Sex Assigned at Not on file 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 Gender Identity Not on file Sexual Orientation Not on file documented as of this encounter Plan of Treatment Not on file documented as of this encounter Procedures Procedure Name Priority Date/Time Associated Diagnosis Comments DERMATOPATHOLOGY Routine 10/26/2020 3:33 AM CDT documented in this encounter Results * DERMATOPATHOLOGY (10/26/2020 3:33 AM CDT) Case Report Dermatopathology Report Case: [id number] Authorizing Provider: Narayan Marti Jr., MD Collected: 10/26/2020 03:33 AM Ordering Location: [facility] DermPath Lab Received: 10/27/2020 08:03 AM Pathologist: [...] specimen consists of a shave biopsy measuring [id number]. Jar 0. Specimen B: Received is one formalin filled container labeled with the patient's name and designated right posterior shoulder. The specimen consists of a shave biopsy measuring [id number]. Jar 0. 12:21 PM CDT DERMATOPATHOLOGY LABORATORY [...] purposes. Billing Codes Specimen Charges Stain Charges [id number] 1 1 12:21 PM CDT DERMATOPATHOLOGY LABORATORY Embedded Images 12:21 PM CDT DERMATOPATHOLOGY LABORATORY Pathology/Cytology TISSUE SPECIMEN FROM SKIN / Unknown 10/26/2020 3:33 AM CDT 10/27/2020 8:03 AM CDT Miscellaneous samples (specimen) TISSUE SPECIMEN FROM SKIN / Unknown 10/26/2020 3:33 AM CDT 10/27/2020 8:03 AM CDT us Narayan Marti Jr., MD LAB - PATHOLOGY/CYTOLOG Y ORDERABLES Final Result DERMATOPATHOLOGY LABORATORY [facility] - Department of Dermatology [facility] Specialized Medicine [address] [place] [address], [address] [phone] documented in this encounter Visit Diagnoses Not on filedocumented in this encounter
--- OUTSIDE RECORDS SUMMARY | 2025-04-12 11:07 | XMS_ITS | Clinical Summary ---
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 Gender Identity Not on file Sexual Orientation Not on file Last Filed Vital Signs Vital Sign Reading Time Taken Comments Blood Pressure 132/88 04/03/2019 10:11 AM SURVEILLANCE CAMERA TECHNICIAN Pulse 88 04/03/2019 10:11 AM SURVEILLANCE CAMERA TECHNICIAN Temperature 36.1 C (97 F) 04/03/2019 10:11 AM SURVEILLANCE CAMERA TECHNICIAN Respiratory Rate 20 04/03/2019 10:11 AM SURVEILLANCE CAMERA TECHNICIAN Oxygen Saturation 98% 04/03/2019 10:11 AM SURVEILLANCE CAMERA TECHNICIAN Inhaled Oxygen Concentration - - Weight 133.8 kg (295 lb) 04/03/2019 10:11 AM SURVEILLANCE CAMERA TECHNICIAN Height 188 cm (6' 2) 04/03/2019 10:11 AM SURVEILLANCE CAMERA TECHNICIAN Body Mass Index 37.88 04/03/2019 10:11 AM SURVEILLANCE CAMERA TECHNICIAN Plan of Treatment Health Maintenance Due Date Last Done Comments Hepatitis C Virus (HCV) Screening 1960 TdaP Immunization 1960 Cologuard 2003 Colonoscopy 2003 Colorectal Cancer Screening 2003 Immunochemical Fecal Occult Blood 2003 Pneumococcal Immunization (5 0+ years) (1 of 1 - PCV) 01/16/2008 Zoster Immunization (1 of 2) 01/16/2008 Influenza Immunization (#1) 2025 03/09/2020 SARS-COV-2 Immunization (2024- season) 2025 04/21/2021, 09/02/2020, 08/05/2020 Respiratory Syncytial Virus (RSV) [...] age to complete this topic Care Teams Housekeeper And Laundry Assistant Relationship Specialty Start Date End Date Alexey Hendrix, [facility] [address] [place] [address] PCP - General Physician Ammunition Assembly Laborer 06/17/17
--- OUTSIDE RECORDS SUMMARY | 2025-04-12 11:07 | XMS_ITS | Clinical Summary ---
Author Organization [facility] [address] Address [address] [place] [address] Care Team Providers Care Tunnel Miner Name Role Phone Nain Barboza MD Unavailable [phone] Alexey Hendrix Unavailable [phone] Taz Cox DO Primary Care Provider [phone] Allergies No known active allergies Medications omeprazole [...] mouth daily 90 tablet 2 11/30/2024 12/01/19 Active clopidogreL (PLAVIX) 75 mg tablet TAKE 1 TABLET BY MOUTH EVERY DAY 90 tablet 2 01/22/2025 Active metoprolol (LOPRESSOR) 100 mg tablet TAKE 1 TABLET BY MOUTH TWICE A DAY 180 tablet 1 02/05/2025 Active Active Problems Problem Noted Date Diagnosed Date Severe obesity 11/30/2024 Hx of CABG 12/07/2021 Aftercare following surgery of the circulatory s ystem 08/07/2021 CAD in [place] artery 07/03/2021 Dysphagia 01/07/2019 Overview (01/07/2019): Added automatically from request for surgery [id number] Encounter for screening colonoscopy 10/17/2018 Overview (10/17/2018): Added automatically from request for surgery [id number] Surgical History Surgery Date Site/Laterality Comments COLONOSCOPY 11/10/2018 ROTATOR CUFF REPAIR Right CORONARY ARTERY BYPASS GRAFT 07/05/2021 CABG x2 (MONAE->LAD & L Rad PDA) Medical History Medical History Date Comments GERD (gastroesophageal reflux disease) Hypertension Hyperlipidemia Diabetes mellitus diet controlle d currently Coronary artery disease CKD (chronic kidney [...] pur e alcohol) rarely Social Connection and Isolation Panel Answer Date Recorded In a typical week, how many times do you talk on the phone with family, friends, or neighbors? More than three times a week 07/04/2021 How often do you get togethe r with friends or relatives? 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 Room: [facility] ROOM 1 Note Status: [...] passed under direct vision.The Pediatric Colonoscope [id number]-H190L [id number] was introduced through the anus and advanced [...] 11:47 AM Procedure Code(s): --- Professional --- 69080, Colonoscopy, flexible; diagnostic, including collection of specimen(s) by brushing or washing, when performed (separateprocedure) Diagnosis Code(s): --- Professional --- Z12.11, Encounter for screening for malignant neoplasm of colon K64.8, Other hemorrhoids K57.30, Diverticulosis of large intestine without perforation orabscess without bleeding CPT copyright 2017 [employer]. All rights reserved. The codes documented in this report are preliminary and upon product safety administrator reviewmay be revised to meet current compliance requirements. Recognized by the [employer] for promoting quality [...] Recently Relevant to Health Maintenance Insurance MEDICARE [facility] CHOICE [place] [facility] Advance Directives For more information, please contact: [phone] * Full Code (Latest Code Status on File) Date Activated Date Inactivated Comments 07/03/2021 5:34 PM 07/10/2021 6:17 PM * Full Code Date Activated Date Inactivated Comments 01/21/2019 11:52 AM 01/21/2019 7:04 PM * Full Code Date Activated Date Inactivated Comments 01/21/2019 11:51 AM 01/21/2019 11:52 AM Care Teams Tunnel Miner Relationship Specialty Start Date End Date Taz Cox DO [address] [place] [address] PCP - General Internal Medicine 08/03/21 Nain Barboza MD [id number] [facility] [address] [address] Consulting Physician Cardiology 07/07/21 Alexey Hendrix PA [address] [place] [address] Referring Physician Family Practice 08/02/21
[2025-04-12 19:41] LABS: Hematocrit 43.6 % (42.0-52.0); Hemoglobin 14.6 g/dL (14.0-18.0); Immature Granulocyte Percent A 0.2 % (0-0.5); Lymphocytes Absolute Auto 1.74 K/mm3 (0.9-3.2); Mean Corpuscular HGB Conc 33.5 g/dl (32-36); Mean Corpuscular Hemoglobin 31.0 pg (26-34); Mean Corpuscular Volume 92.6 fl (80-100); Nucleated Red Blood Cells Absolute Auto 0.000 K/mm3 (0.0-0.012); Nucleated Red Blood Cells Perc 0.0 % (0.0-0.2); Platelet Count Result 207 k/mm3 (150-375); Red Blood Count 4.71 M/mm3 (4.6-6.20); White Blood Count 6.2 K/mm3 (4.5-10.0)
[2025-04-12 19:45] LABS: Alanine Aminotransferase 26 U/L (6-50); Albumin Level 4.4 g/dL (3.5-5.1); Alkaline Phosphatase 90 U/L (38-126); Anion Gap 7 mmol/L (4-12); Aspartate Amino Transferase 52 U/L (17-59); Bilirubin,Total 0.4 mg/dL (0.2-1.3); Blood Urea Nitrogen 17 mg/dL (9-20); Calcium 9.1 mg/dL (8.4-10.2); Carbon Dioxide 32 mmol/L (22-30); Chloride 101 mmol/L (98-107); Cholesterol 172 mg/dL (0-200); Estimated Glomerular Filt Rate > 60; Glucose 182 mg/dL (65-110); HDL Direct 33 mg/dL; Potassium 4.0 mmol/L (3.4-5.0); Sodium 140 mmol/L (137-145); Total Protein 7.2 g/dL (6.3-8.2); Triglycerides 192 mg/dL (<150)
[2025-04-12 19:54] LABS: Hemoglobin A1C 6.6 % (<5.7)
[2025-04-12 20:20] LABS: Prostate Specific Antigen 0.4 ng/mL (< OR = 4.0)
== END 2025-04-12 10:01 | disposition home or self-care (01) ==
PROVIDERS: PCP Internal Medicine; Visit Provider Nurse Practitioner
DX: E11.9 Type 2 diabetes mellitus without complications (principal); Z12.5 Encounter for screening for malignant neoplasm of prostate
CPT/HCPCS: 36415; 80053; 80061; 83036; 84153; 85025; G0103